=== PATIENT | male | born 1935 | race Caucasian/White ===

== ENCOUNTER 2017-01-12 15:40 | Inpatient (IN) | payer MEDICARE, OTHER ==
[2017-01-12 16:12] VITALS: BMI 27.1
--- NOTE | 2017-01-12 16:16 | PDOC ---
Rapid Medical Evaluation Time Seen by Provider: 01/12/17 16:09 Medical Evaluation: Allergies Allergy/AdvReac Type Severity Reaction Status Date / Time No Known Allergies Allergy Verified 06/20/14 03:48 01/12/17 16:09 I have performed a brief in person evaluation of this patient. The patient presents with chief complaint of : rash to groin red and oozing for one week. Pt states borderline DM. Pertinent PE findings: stable vitals, right inner thigh with red, tender indurated area with drainage, I have ordered the following: cbc, cmp, blood cultures, The patient will proceed to the ER for further evaluation. 01/12/17 16:16
[2017-01-12 16:50] LABS: BASOPHIL 0.6 % (0-2.0); EOSINOPHIL 4.5 % (0-4.5); MCH 29.6 pg (25.7-33.7); MCHC 33.2 g/dl (32.0-35.9); MEAN CELL VOLUME 89.2 fl (80-96); MEAN PLT VOLUME 7.4 fl (7.5-11.1); NEUTROPHILS 65.2 % (42.8-82.8); PLATELET COUNT 432 K/MM3 (134-434); RDW 15.2 % (11.9-15.9); WHITE BLOOD COUNT 7.4 K/mm3 (4.0-10.0)
[2017-01-12 17:35] LABS: ALBUMIN 3.3 g/dl (3.4-5.0); ANION GAP 10 (8-16); BILIRUBIN,TOTAL 0.3 mg/dL (0.2-1.0); CALCIUM 8.2 mg/dL (8.5-10.1); CO2 24 mmol/L (21-32); CREATININE 1.6 mg/dL (0.7-1.3); GLUCOSE,RANDOM 191 mg/dL (74-106); SGOT/AST 22 U/L (15-37); SGPT/ALT 48 U/L (12-78); TOT PROT 7.8 g/dl (6.4-8.2)
[2017-01-12 17:36] LABS: ALK PHOS 86 U/L (45-117)
--- NOTE | 2017-01-12 17:52 | PDOC ---
History of Present Illness - General History Source: Patient Exam Limitations: No Limitations - History of Present Illness Initial Comments: 01/12/17 19:08 Patient is an 81-year-old male with past medical history of HTN, HLD, diabetes, NC?,who presents to emergency department with pain to his inner thighs. Patient states that he noticed this yesterday and the redness has gotten worse. He has not seen a doctor yet for this issue. He states that there was a scratch on his thighs that got very red and irritated. Admits to pain in the legs. Denies fevers, chills, shortness of breath, chest pain, numbness and tingling in the legs, weakness in the legs, nausea, vomiting and diarrhea. <Mila Green - Last Filed: 01/12/17 19:08> <Kim Goodwin - Last Filed: 01/12/17 19:18> - General Chief Complaint: Wound Infection Stated Complaint: WOUND INFECTION Time Seen by Provider: 01/12/17 16:09 Past History - Travel Traveled outside of the country in the last 30 days: No Close contact w/someone who was outside of country & ill: No - Past Medical History Cardiac Disorders: Yes (CAD) COPD: No Diabetes: Yes HTN: Yes Hypercholesterolemia: Yes - Suicide/Smoking/Psychosocial Hx Smoking History: Former smoker Have you smoked in the past 12 months: No If you are a former smoker, when did you quit?: 25 yrs ago Information on smoking cessation initiated: No Hx Alcohol Use: No Substance Use Type: Alcohol <Mila Green - Last Filed: 01/12/17 19:08> <Kim Goodwin - Last Filed: 01/12/17 19:18> - Past Medical History Allergies/Adverse Reactions: Allergies Allergy/AdvReac Type Severity Reaction Status Date / Time No Known Allergies Allergy Verified 01/12/17 16:10 Home Medications: Ambulatory Orders Aspirin [Aspirin EC] 81 mg PO DAILY 06/20/14 Amlodipine Besylate [Norvasc -] 5 mg PO DAILY #14 tablet 06/22/14 Glipizide [Glipizide ER] 2.5 mg PO BID #60 tab.er.24 06/22/14 Lisinopril [Prinivil] 20 mg PO DAILY #14 tablet 06/22/14 Metformin HCl [Glucophage -] 500 mg PO BID@0700,1630 #60 tablet 06/22/14 Metoprolol Succinate [Toprol XL -] 50 mg PO DAILY #14 tab.sr.24h 06/22/14 Simvastatin [Zocor -] 40 mg PO DAILY #14 tablet 06/22/14 Spironolactone 25 mg PO DAILY #14 tablet 06/22/14 Torsemide 20 mg PO DAILY #14 tablet 06/22/14 Review of Systems - Review of Systems Able to Perform ROS?: Yes Comments:: 01/12/17 19:10 CONSTITUTIONAL: Absent: fever, chills, diaphoresis, generalized weakness, malaise, loss of appetite HEENT: Absent: rhinorrhea, nasal congestion, throat pain, throat swelling, difficulty swallowing, mouth swelling, ear pain, eye pain, visual Changes CARDIOVASCULAR: Absent: chest pain, loss of consciousness, palpitations, irregular heart rate, peripheral edema RESPIRATORY: Absent: cough, shortness of breath, dyspnea with exertion, orthopnea, wheezing, stridor, hemoptysis GASTROINTESTINAL: Absent: abdominal pain, abdominal distension, nausea, vomiting, diarrhea, constipation, melena, hematochezia GENITOURINARY: Absent: dysuria, frequency, urgency, hesitancy, hematuria, flank pain, genital pain MUSCULOSKELETAL: Absent: myalgia, arthralgia, joint swelling SKIN: Present: abscess with drainage, redness around the abscess. Absent: rash, itching, pallor HEMATOLOGIC/IMMUNOLOGIC: Absent: easy bleeding, easy bruising, lymphadenopathy, frequent infections ENDOCRINE: Absent: unexplained weight gain, unexplained weight loss, heat intolerance, cold intolerance NEUROLOGIC: Absent: headache, focal weakness or paresthesias, dizziness, unsteady gait, seizure, mental status changes, bladder or bowel incontinence PSYCHIATRIC: Absent: anxiety, depression, suicidal or homicidal ideation, hallucinations. Is the patient limited Kyrgyz proficient: No <Mila Green - Last Filed: 01/12/17 19:08> *Physical Exam - Vital Signs Last Vital Signs Temp Pulse Resp BP Pulse Ox 98.6 F 77 18 141/85 98 01/12/17 16:10 01/12/17 16:10 01/12/17 16:10 01/12/17 16:10 01/12/17 16:10 - Physical Exam Comments: 01/12/17 19:11 GENERAL: Well developed, well nourished. Awake and alert. No acute distress. HEENT: Normocephalic, atraumatic. PERRLA, EOMI. No conjunctival pallor. Sclera are non- icteric. Moist mucous membranes. Oropharynx is clear. NECK: Supple. Full ROM. No JVD. Carotid pulses 2+ and symmetric, without bruits. No thyromegaly. No lymphadenopathy. CARDIOVASCULAR: Regular rate and rhythm. No murmurs, rubs, or gallops. Distal pulses are 2+ and symmetric. PULMONARY: No evidence of respiratory distress. Lungs clear to auscultation bilaterally. No wheezing, rales or rhonchi. ABDOMINAL: Soft. Non-tender. Non-distended. No rebound or guarding. No organomegaly. Normoactive bowel sounds. MUSCULOSKELETAL Normal range of motion at all joints. No bony deformities or tenderness. No CVA tenderness. EXTREMITIES: No cyanosis. No clubbing. No edema. No calf tenderness. SKIN: R thigh with two abscesses. 1st absecess medial to scrotum is open and actively draining. Absess superior to the draining one is indurated and approximated 2x3cm. Cellulitis extends around both abscesses extending to the anterior thigh approximately [id number] round. Warm and dry. Normal capillary refill. No jaundice. NEUROLOGICAL: Alert, awake, appropriate. Cranial nerves 2-12 intact. No deficits to light touch and temperature in face, upper extremities and lower extremities. No motor deficits in the in face, upper extremities and lower extremities. Normoreflexic in the upper and lower extremities. Normal speech. Toes are down- going bilaterally. Gait is normal without ataxia. PSYCHIATRIC: Cooperative. Good eye contact. Appropriate mood and affect. <Mila Green - Last Filed: 01/12/17 19:08> - Vital Signs Last Vital Signs Temp Pulse Resp BP Pulse Ox 98.6 F 77 18 141/85 98 01/12/17 16:10 01/12/17 16:10 01/12/17 16:10 01/12/17 16:10 01/12/17 16:10 <Kim Goodwin - Last Filed: 01/12/17 19:18> ED Treatment Course - LABORATORY CBC & Chemistry Diagram: 01/12/17 16:00 01/12/17 16:00 - ADDITIONAL ORDERS Additional order review: Laboratory Results 01/12/17 16:00 Sodium 138 Potassium 4.6 Chloride 104 Carbon Dioxide 24 Anion Gap 10 BUN 25 H Creatinine 1.6 H Creat Clearance w eGFR 41.69 Random Glucose 191 H D Calcium 8.2 L Total Bilirubin 0.3 D AST 22 ALT 48 Alkaline Phosphatase 86 Total Protein 7.8 Albumin 3.3 L 01/12/17 16:00 RBC 4.48 MCV 89.2 MCHC 33.2 RDW 15.2 MPV 7.4 L D Neutrophils % 65.2 Lymphocytes % 20.2 D Monocytes % 9.5 Eosinophils % 4.5 D Basophils % 0.6 <Mila Green - Last Filed: 01/12/17 19:08> - LABORATORY CBC & Chemistry Diagram: 01/12/17 16:00 01/12/17 16:00 - ADDITIONAL ORDERS Additional order review: Laboratory Results 01/12/17 16:00 Sodium 138 Potassium 4.6 Chloride 104 Carbon Dioxide 24 Anion Gap 10 BUN 25 H Creatinine 1.6 H Creat Clearance w eGFR 41.69 Random Glucose 191 H D Calcium 8.2 L Total Bilirubin 0.3 D AST 22 ALT 48 Alkaline Phosphatase 86 Total Protein 7.8 Albumin 3.3 L 01/12/17 16:00 RBC 4.48 MCV 89.2 MCHC 33.2 RDW 15.2 MPV 7.4 L D Neutrophils % 65.2 Lymphocytes % 20.2 D Monocytes % 9.5 Eosinophils % 4.5 D Basophils % 0.6 - Medications Given in the ED: ED Medications Discontinued Medications Generic Name Dose Route Start Last Admin Trade Name Keyon PRN Reason Stop Dose Admin Piperacillin/Tazobactam/Dextrose 50 mls @ 100 mls/hr 01/12/17 18:26 01/12/17 18 :44 Zosyn 3.375gm Ivpb (Premix) IVPB 01/12/17 18:55 100 mls/hr ONCE ONE Administration Protocol <Kim Goodwin - Last Filed: 01/12/17 19:18> Medical Decision Making - Medical Decision Making 01/12/17 19:13 Patient is an 81-year-old male with past medical history of hypertension, hyperlipidemia, diabetes, NC who presents to the emergency department today with abscesses to the right thigh with cellulitis. As well as cellulitis on the left leg. Patient is a poor historian and unreliable to take medication. Given the area of cellulitis and abscess would like to admit for IV antibiotics. 1.CBC, CMP, PT/INR, blood cultures, UA, UC, wound culture. 2.IV clindamycin, Zosyn 3.reevaluate 01/12/17 WBC is within normal limits no left shift or leukocytosis. Will call hospitalist for admission given that this patient was only IV antibiotics. Sign out given to Gilma Miranda NP. In short IV evaluate the patient for cellulitis. He will need IV antibiotics. Awaiting disposition to admit to hospital. <Mila Green - Last Filed: 01/12/17 19:08> *DC/Admit/Observation/Transfer <Mila Green - Last Filed: 01/12/17 19:08> - Discharge Dispostion Admit: Yes <Kim Goodwin - Last Filed: 01/12/17 19:18> Diagnosis at time of Disposition: Renal insufficiency, Hyperglycemia, Cellulitis and abscess of right lower extremity
[2017-01-12] MEDS ORDERED: CLINDAMYCIN IVPB 300 MG in DEXTROSE 5%-WATER - 48 ML IVPB ONE (18:26)
[2017-01-12] MEDS ORDERED: PIPERACILLIN/TAZOB 3.375 GM 50 ML IVPB ONE ×2 (18:26→18:44)
--- NOTE | 2017-01-12 19:10 | PN ---
Teaching Attending Note Name of Resident: Mendy Storm ATTENDING PHYSICIAN STATEMENT I saw and evaluated the patient. I reviewed the resident's note and discussed the case with the resident. I agree with the resident's findings and plan as documented. SUBJECTIVE: 79 yo M with hx. of HTN, HLD, DM, and CAD who presents with right groin rash and oozing. States that this started one week ago. Notes that he scratched his thigh a week ago and that's when the redness started. Notes red drainage from groin area. No fevers, or chills, no chest pain or pressure. No n/v.d. Pt. OBJECTIVE: Physical: VS: Vital Signs Period Temp Pulse Resp BP Sys/Xiao Pulse Ox Last 24 Hr 98.6 F 77 18 141/85 98 GEN: NAD, resting in bed, AA0x3 HEENT: NCAT, PERRL, throat without erythema or exudates CARD: RRR S1, S2 RESP: CTAB ABD: BSx4, NTD to palpation EXT: - C/C/E CBCD WBC 7.4 K/mm3 (4.0-10.0) 01/12/17 16:00 RBC 4.48 M/mm3 (4.00-5.60) 01/12/17 16:00 Hgb 13.2 GM/dL (11.7-16.9) 01/12/17 16:00 Hct 39.9 % (35.4-49) 01/12/17 16:00 MCV 89.2 fl (80-96) 01/12/17 16:00 MCHC 33.2 g/dl (32.0-35.9) 01/12/17 16:00 RDW 15.2 % (11.9-15.9) 01/12/17 16:00 Plt Count 432 K/MM3 (134-434) D 01/12/17 16:00 MPV 7.4 fl (7.5-11.1) L D 01/12/17 16:00 CMP Sodium 138 mmol/L (136-145) 01/12/17 16:00 Potassium 4.6 mmol/L (3.5-5.1) 01/12/17 16:00 Chloride 104 mmol/L (98-107) 01/12/17 16:00 Carbon Dioxide 24 mmol/L (21-32) 01/12/17 16:00 Anion Gap 10 (8-16) 01/12/17 16:00 BUN 25 mg/dL (7-18) H 01/12/17 16:00 Creatinine 1.6 mg/dL (0.7-1.3) H 01/12/17 16:00 Creat Clearance w eGFR 41.69 (>60) 01/12/17 16:00 Random Glucose 191 mg/dL (74-106) H D 01/12/17 16:00 Calcium 8.2 mg/dL (8.5-10.1) L 01/12/17 16:00 Total Bilirubin 0.3 mg/dL (0.2-1.0) D 01/12/17 16:00 AST 22 U/L (15-37) 01/12/17 16:00 ALT 48 U/L (12-78) 01/12/17 16:00 Alkaline Phosphatase 86 U/L (45-117) 01/12/17 16:00 Total Protein 7.8 g/dl (6.4-8.2) 01/12/17 16:00 Albumin 3.3 g/dl (3.4-5.0) L 01/12/17 16:00 Home Medications Medication Instructions Recorded Aspirin [Aspirin EC] 81 mg PO DAILY 06/20/14 Amlodipine Besylate [Norvasc -] 5 mg PO DAILY #14 tablet 06/22/14 Glipizide [Glipizide ER] 2.5 mg PO BID #60 tab.er.24 06/22/14 Lisinopril [Prinivil] 20 mg PO DAILY #14 tablet 06/22/14 Metformin HCl [Glucophage -] 500 mg PO BID@0700,1630 #60 tablet 06/22/14 Metoprolol Succinate [Toprol XL -] 50 mg PO DAILY #14 tab.sr.24h 06/22/14 Simvastatin [Zocor -] 40 mg PO DAILY #14 tablet 06/22/14 Spironolactone 25 mg PO DAILY #14 tablet 06/22/14 Torsemide 20 mg PO DAILY #14 tablet 06/22/14 CT LE-Subcutanous edema without abcess formation ASSESSMENT AND PLAN: 81 M with hx of CAD, DM, HTN, and CAD who presents with right groin rash, being admitted for cellulitis 1.) Right groin Cellulitis - CT Groin as above - Sx. consult/ID - C/W Clindamycin 2.) CAD - C/W home meds 3.) Rosa on CKD - Avoid Nephrotoxins - monitor Cr on LEYDI - D/C Metformin - D/C Aldactone if CR increases 4.) DM - FS - RAISS 5.) HTN - C/W BB and Amlodipine 6.) Unable to Perform ADL - Social work consult for placement 7.) Dvt Ppx - Low Risk - Heparin [address] in Med-Sx
[2017-01-12] MEDS ORDERED: CLINDAMYCIN 600MG PREMIX IVPB 50 ML IVPB ONE (19:39)
--- NOTE | 2017-01-12 20:01 | HP ---
CHIEF COMPLAINT: "i have an infection on my thigh" PCP: Dr Spears HISTORY OF PRESENT ILLNESS: This is an 81 yo M with PMH of NIDDM, HTN, HLD, possible VT, who presents due to painful R thigh infection. he states that he scratched the area and it turned red and painful on fri and progressively increased in size and tenderness. 2 days ago the medial aspect of the lesion began draining sanguineou -purulent discharge, which made the are hurt less and decrease in size. He denies prior skin infection or frequent infection in general. he denies f/c, malaise, confusion or pain at rest, stating that the affected area is only tender if he moves his legs a certain way but does not hurt at rest. He answers all questions clearly and is aaox3. He states that despite apparent lack of systemic symptoms, he has not taken any of his home meds in several days because he did not feel well. he also requests social security assessor, given that he has lost both his food stamps and vns when his . He lives alone. Denies cp, sough, sob, and pain, n/v, diarrhea, constipation, h/a, numbness and tingling in the legs, weakness in the legs, dysuria. ER course was notable for: (1)labs (2)ct R thigh (3)nallely quick Recent Travel: denies PAST MEDICAL HISTORY: as above PAST SURGICAL HISTORY: none Social History: lives alone Smoking:denies Alcohol:denies Drugs: denies Family History: noncontributory Allergies No Known Allergies Allergy (Verified 01/12/17 16:10) HOME MEDICATIONS: Home Medications Medication Instructions Recorded Aspirin [Aspirin EC] 81 mg PO DAILY 06/20/14 Amlodipine Besylate [Norvasc -] 5 mg PO DAILY #14 tablet 06/22/14 Glipizide [Glipizide ER] 2.5 mg PO BID #60 tab.er.24 06/22/14 Lisinopril [Prinivil] 20 mg PO DAILY #14 tablet 06/22/14 Metformin HCl [Glucophage -] 500 mg PO BID@0700,1630 #60 tablet 06/22/14 Metoprolol Succinate [Toprol XL -] 50 mg PO DAILY #14 tab.sr.24h 06/22/14 Simvastatin [Zocor -] 40 mg PO DAILY #14 tablet 06/22/14 Spironolactone 25 mg PO DAILY #14 tablet 06/22/14 Torsemide 20 mg PO DAILY #14 tablet 06/22/14 REVIEW OF SYSTEMS CONSTITUTIONAL: Absent: fever, chills, diaphoresis, generalized weakness, malaise, loss of appetite, weight change HEENT: Absent: rhinorrhea, nasal congestion, throat pain CARDIOVASCULAR: Absent: chest pain, syncope, palpitations, irregular heart rate, lightheadedness , peripheral edema RESPIRATORY: Absent: cough, shortness of breath GASTROINTESTINAL: Absent: abdominal pain, abdominal distension, nausea, vomiting, diarrhea, constipation GENITOURINARY: Absent: dysuria MUSCULOSKELETAL: Absent: myalgia, arthralgia, joint swelling SKIN: Absent:itching, pallor HEMATOLOGIC/IMMUNOLOGIC: Absent: frequent infections ENDOCRINE: Absent: unexplained weight gain, unexplained weight loss, heat intolerance, cold intolerance NEUROLOGIC: Absent: headache, focal weakness or paresthesias PSYCHIATRIC: Absent: anxiety, depression PHYSICAL EXAMINATION Vital Signs - 24 hr 01/12/17 16:10 Temperature 98.6 F Pulse Rate 77 Respiratory 18 Rate Blood Pressure 141/85 O2 Sat by Pulse 98 Oximetry (%) GENERAL: Awake, alert, and fully oriented, in no acute distress. HEAD: Normal with no signs of trauma. EYES: Pupils equal, round and reactive to light, extraocular movements intact, sclera anicteric, conjunctiva clear. EARS, NOSE, THROAT: Moist mucous membranes. NECK: supple LUNGS: Breath sounds equal, clear to auscultation bilaterally. HEART: Regular rate and rhythm, normal S1 and S2 ABDOMEN: Soft, nontender, not distended, normoactive bowel sounds, no guarding MUSCULOSKELETAL: No CVA tenderness. UPPER EXTREMITIES: 2+ pulses, warm, well-perfused. No peripheral edema. LOWER EXTREMITIES: 1+ pulses, warm, well-perfused. No calf tenderness. No peripheral edema. R proximal medial thigh 10 cm hard indurated red area, warmer than surounding skin, draining sanguineou-purulent discharge at the most medial end, tender. NEUROLOGICAL: Cranial nerves II-XII grossly intact. Normal speech. PSYCHIATRIC: Cooperative. Good eye contact. Appropriate mood and affect. SKIN: Warm, dry Laboratory Results - last 24 hr 01/12/17 01/12/17 16:00 16:00 WBC 7.4 RBC 4.48 Hgb 13.2 Hct 39.9 MCV 89.2 MCH 29.6 MCHC 33.2 RDW 15.2 Plt Count 432 D MPV 7.4 L D Neutrophils % 65.2 Lymphocytes % 20.2 D Monocytes % 9.5 Eosinophils % 4.5 D Basophils % 0.6 Sodium 138 Potassium 4.6 Chloride 104 Carbon Dioxide 24 Anion Gap 10 BUN 25 H Creatinine 1.6 H Creat Clearance w eGFR 41.69 Random Glucose 191 H D Calcium 8.2 L Total Bilirubin 0.3 D AST 22 ALT 48 Alkaline Phosphatase 86 Total Protein 7.8 Albumin 3.3 L ASSESSMENT/PLAN: This is an 81 yo M with PMH of NIDDM, HTN, HLD, possible VT, who presents due to painful R proximal medial thigh infection. Abscess with surrounding cellulitis of R proximal medial thigh. -does not meet sirs criteria; afebrile, hemodynamically stable, no leukocytosis -requires warm compress followed by surgical I and D -surgery consult -f/u Ct scan to r/o deeper infection -continue clindamycin -f/u blood, wound cultures -patient unable to care for self; social work consult CKD -at baseline NIDDM -BGM, ISS HTN HLD -resume home meds Dispo: adm med nisa Visit type - Emergency Visit Emergency Visit: Yes Care time: The patient presented to the Emergency Department on the above date and was hospitalized for further evaluation of their emergent condition. - New Patient This patient is new to me today: Yes Date on this admission: 01/12/17 - Critical Care Critical Care patient: No
[2017-01-12] MEDS ORDERED: ACETAMINOPHEN 325 MG TABLET (FP) PO PRN (20:48)
--- NOTE | 2017-01-12 21:19 | HP ---
CHIEF COMPLAINT: inner thigh pain PCP: Regan HISTORY OF PRESENT ILLNESS: 81M w/ hx of HTN, HLD, DM, CAD, DE, CKD and elbow abscess presenting with 5 days of right inner thigh/ groin pain. Per pt, this began after scratching the area after believing he had gotten some type of bug bite. The area became inflamed, and it was relieved by alcohol and neosporin. He states that it is minimally painful, and he only came to the hospital because his daughter insisted. He states that he usually takes his medications, but he has not over the last few days because he thought they would make him worse given his infection. He denies fevers, chills, headache, chest pain, SOB, abdominal pain, n/v/d/c, dysuria, and numbness/tingling in LEs. ER course was notable for: (1) (2) (3) Recent Travel: none PAST MEDICAL HISTORY: HTN, HLD, DM, CAD, DE, CKD and elbow abscess PAST SURGICAL HISTORY: right knee replacement Social History: Smokin pack years, quit 15 years ago Alcohol: 5 drinks per day x 20 years, quit 20 years ago Drugs: denies Family History: Allergies No Known Allergies Allergy (Verified 01/12/17 16:10) HOME MEDICATIONS: Home Medications Medication Instructions Recorded Aspirin [Aspirin EC] 81 mg PO DAILY 06/20/14 Amlodipine Besylate [Norvasc -] 5 mg PO DAILY #14 tablet 06/22/14 Glipizide [Glipizide ER] 2.5 mg PO BID #60 tab.er.24 06/22/14 Lisinopril [Prinivil] 20 mg PO DAILY #14 tablet 06/22/14 Metformin HCl [Glucophage -] 500 mg PO BID@0700,1630 #60 tablet 06/22/14 Metoprolol Succinate [Toprol XL -] 50 mg PO DAILY #14 tab.sr.24h 06/22/14 Simvastatin [Zocor -] 40 mg PO DAILY #14 tablet 06/22/14 Spironolactone 25 mg PO DAILY #14 tablet 06/22/14 Torsemide 20 mg PO DAILY #14 tablet 06/22/14 REVIEW OF SYSTEMS CONSTITUTIONAL: Absent: fever, chills, diaphoresis, generalized weakness, malaise, loss of appetite, weight change HEENT: Absent: rhinorrhea, nasal congestion, throat pain, throat swelling, difficulty swallowing, mouth swelling, ear pain, eye pain, visual changes CARDIOVASCULAR: Absent: chest pain, syncope, palpitations, irregular heart rate, lightheadedness , peripheral edema RESPIRATORY: Absent: cough, shortness of breath, dyspnea with exertion, orthopnea, wheezing, stridor, hemoptysis GASTROINTESTINAL: Absent: abdominal pain, abdominal distension, nausea, vomiting, diarrhea, constipation, melena, hematochezia GENITOURINARY: Absent: dysuria, frequency, urgency, hesitancy, hematuria, flank pain, Present: groin pain MUSCULOSKELETAL: Absent: myalgia, arthralgia, joint swelling, back pain, neck pain SKIN: Absent: rash, itching, pallor HEMATOLOGIC/IMMUNOLOGIC: Absent: easy bleeding, easy bruising, lymphadenopathy, frequent infections ENDOCRINE: Absent: unexplained weight gain, unexplained weight loss, heat intolerance, cold intolerance NEUROLOGIC: Absent: headache, focal weakness or paresthesias, dizziness, unsteady gait, seizure, mental status changes, bladder or bowel incontinence PSYCHIATRIC: Absent: anxiety, depression, suicidal or homicidal ideation, hallucinations. PHYSICAL EXAMINATION GENERAL: elderly male, AAOx3, awake, alert, and fully oriented, in no acute distress. HEAD: Normal with no signs of trauma. EYES: Pupils equal, round and reactive to light, extraocular movements intact, sclera anicteric, conjunctiva clear. No lid lag. EARS, NOSE, THROAT: Ears normal, nares patent, oropharynx clear without exudates. Moist mucous membranes. NECK: Normal range of motion, supple without lymphadenopathy, JVD, or masses. LUNGS: Breath sounds equal, clear to auscultation bilaterally. No wheezes, and no crackles. No accessory muscle use. HEART: Regular rate and rhythm, normal S1 and S2 without murmur, rub or gallop. ABDOMEN: Soft, nontender, not distended, normoactive bowel sounds, no guarding, no rebound, no masses. No hepatomegaly or splenomegaly. Groin: 6cm x 4cm indurated draining abscess with large area of surrounding cellulitis on medial proximal RLE. area is warm to touch, erythematous, non tender to palpation. There is also a 2nd abscess that is 3cm x 2cm posterior to scrotum, draining pus, with minimal surrounding cellulitis. MUSCULOSKELETAL: Normal range of motion at all joints. No bony deformities or tenderness. No CVA tenderness. UPPER EXTREMITIES: 2+ pulses, warm, well-perfused. No cyanosis. No clubbing. No peripheral edema. LOWER EXTREMITIES: 2+ pulses, warm, well-perfused. No calf tenderness. No peripheral edema. NEUROLOGICAL: Cranial nerves II-XII intact. Normal speech. Normal gait. PSYCHIATRIC: Cooperative. Good eye contact. Appropriate mood and affect. ASSESSMENT/PLAN: 81M w/ hx of HTN, HLD, DM, CAD, DE, CKD and elbow abscess presenting with acute onset of 2 groin abscesses, admitted to med/surg for IV antibiotics. #Abscesses/cellulitis -no SIRS criteria -due to induration of RLE abscess, will apply warm compress to loosen up pus before I&D -clindamycin -APAP for fever or pain -f/u wound cx and blood cx -f/u CT of RLE to evaluate extent of infection #CKD -continue lisinopril -monitor creatinine #DM -hold metformin and glipizide -ISS and BGM ACHS #HTN -continue norvasc, lisinopril, toprol, spironolactone, and torsemide #HLD -continue simvastatin #CAD -continue ASA #FEN/ppx -no fluids -electrolytes wnl -diabetic diet -no GI ppx indicated -heparin 5000U TID #Dispo -admit to med/surg -social work eval for home services given pt's difficulty with ADLs -Lito Godinez MD PGY1 Visit type - Emergency Visit Emergency Visit: Yes ED Registration Date: 01/12/17 Care time: The patient presented to the Emergency Department on the above date and was hospitalized for further evaluation of their emergent condition. - New Patient This patient is new to me today: Yes Date on this admission: 01/13/17 - Critical Care Critical Care patient: No
[2017-01-12] MEDS ORDERED: ATORVASTATIN CA 20 MG TABLET (FP) PO SCH (22:00)
[2017-01-12] MEDS ORDERED: INSULIN SLIDING SCALE (NOVOLOG) 1 VIAL SQ SCH (22:00)
[2017-01-12] MEDS: HEPARIN NA (PORCINE) 5,000 UNITS/ML 1ML VIAL SQ SCH (23:33)
[2017-01-13] MEDS ORDERED: CLINDAMYCIN IVPB 300 MG in DEXTROSE 5%-WATER - 48 ML IVPB SCH (02:00)
[2017-01-13] MEDS ORDERED: CLINDAMYCIN 600MG PREMIX IVPB 50 ML IVPB SCH (02:00)
[2017-01-13] MEDS ORDERED: PIPERACILLIN/TAZOB 3.375 GM/50 ML PRE-DOCKED IVPB ONE (03:00)
[2017-01-13] MEDS: HEPARIN NA (PORCINE) 5,000 UNITS/ML 1ML VIAL SQ SCH ×2 (05:36→21:12)
[2017-01-13 08:35] LABS: MCH 29.7 pg (25.7-33.7); MCHC 33.6 g/dl (32.0-35.9); MEAN CELL VOLUME 88.5 fl (80-96); MEAN PLT VOLUME 7.3 fl (7.5-11.1); PLATELET COUNT 423 K/MM3 (134-434); RDW 15.2 % (11.9-15.9); WHITE BLOOD COUNT 6.3 K/mm3 (4.0-10.0)
--- NOTE | 2017-01-13 09:13 | HOSP ---
Subjective - Review of Symptoms Subjective: Patient seen and examined. He denies fever, chills. He has tenderness two b/l groin wound sites. He denies sob, chest pain, n/v. Physical Examination Vital Signs: Vital Signs Temperature 98.2 F 01/13/17 06:09 Pulse Rate 66 01/13/17 06:09 Respiratory Rate 20 01/13/17 06:09 Blood Pressure 128/61 01/13/17 06:09 O2 Sat by Pulse Oximetry (%) 96 01/13/17 05:00 Eyes: Yes: WNL Neck: Yes: Supple Cardiovascular: Yes: Regular Rate and Rhythm, S1, S2 Respiratory: Yes: Regular, CTA Bilaterally Gastrointestinal: Yes: Normal Bowel Sounds, Soft Extremities: Yes: WNL Edema: No Wound/Incision: Yes: Draining, Reddened, Other (Bilateral groin drainaing abcescess R groin indurated, erythema, tender, 2cm x 3cm, L groin 3cm x4cm 1 cm deep, pustulant drainage, with slough) Neurological: Yes: Alert, Oriented, Cran Nerves II-XII Intact Psychiatric: Yes: Alert, Oriented Labs: CBC, BMP 01/13/17 07:30 Hospitalist Encounter Assessment: Assessment: 81 male with pmhx of CAD, DM II, HTN, and CAD admitted with bilateral groin draining abscess with cellulitis. Plan: 1. Bilateral groin abscess with cellulitis - Resent cultures - Stop Clinda - Start vanco, ceftriaxone, and flagyl - Follow vanco levels w/ CKD - Surgery to see for I&D, keep NPO 2. CAD, hx of systolic CHF - Not in acute exacerbation - Metoprolol xl 50mg - ASA daily - Spironolactone 25mg daily - Toresemide 20mg daily 3. HTN - Norvasc 5mg daily - Lisinopril 20mg daily 4. NASRIN on CKD - Cr around baseline - Awaiting AM labs, if cr rising will stop LEYDI, [place] - Hold metformin - Obtain UA 5. HLD - Lipitor 6. DM II - Obtain hgb a1c - ISS, BGM ACHS 7. DVT ppx - Heparin sq starting tomorrow
--- NOTE | 2017-01-13 09:31 | PN ---
Progress Note (short form) - Note Progress Note: ID consult dictated imp/reccd 81 year old diabetic man admitted with one week of increasing discomfort in both groin areas no fevers or chills had a prior left elbow infection-that resolved recently bilateral abscesses/soft tissue infection surgical consult vancomycin and rocephin/flagyl f/u cultures Problem List - Problems (1) Cellulitis and abscess of right leg Code(s): L03.115 - CELLULITIS OF RIGHT LOWER LIMB L02.415 - CUTANEOUS ABSCESS OF RIGHT LOWER LIMB (2) Cellulitis and abscess of left leg Code(s): L03.116 - CELLULITIS OF LEFT LOWER LIMB L02.416 - CUTANEOUS ABSCESS OF LEFT LOWER LIMB
[2017-01-13 09:55] LABS: ALBUMIN 3.2 g/dl (3.4-5.0); ALK PHOS 75 U/L (45-117); ANION GAP 10 (8-16); BILIRUBIN,TOTAL 0.7 mg/dL (0.2-1.0); CALCIUM 8.4 mg/dL (8.5-10.1); CO2 26 mmol/L (21-32); CREATININE 1.4 mg/dL (0.7-1.3); GLUCOSE,RANDOM 121 mg/dL (74-106); MAGNESIUM 2.4 mg/dL (1.8-2.4); PHOSPHOROUS 3.3 mg/dL (2.5-4.9); SGOT/AST 19 U/L (15-37); SGPT/ALT 42 U/L (12-78); TOT PROT 7.5 g/dl (6.4-8.2)
[2017-01-13] MEDS ORDERED: PT OWN MED DRAWER 7, Y5N ONE (09:56)
[2017-01-13] MEDS ORDERED: VANCOMYCIN 1,250 MG in DEXTROSE 5%-WATER - 250 ML IVPB SCH (10:00)
[2017-01-13] MEDS ORDERED: ASPIRIN COATED 81 MG TABLET.EC PO SCH ×2 (10:00)
[2017-01-13] MEDS ORDERED: amLODIPine BESYLATE 5 MG TABLET (FP) PO SCH ×2 (10:00)
[2017-01-13] MEDS ORDERED: PIPERACILLIN/TAZOB 3.375 GM/50 ML PRE-DOCKED IVPB SCH (10:00)
[2017-01-13] MEDS ORDERED: LISINOPRIL 20 MG TABLET (FP) PO SCH ×2 (10:00)
[2017-01-13] MEDS ORDERED: METOPROLOL SUCCINATE 50 MG TAB.SR.24H (FP) PO SCH ×2 (10:00)
[2017-01-13] MEDS ORDERED: CEFTRIAXONE 2 GM in DEXTROSE 5%-WATER - 100 ML IVPB SCH (10:00)
[2017-01-13] MEDS ORDERED: TORSEMIDE 20 MG TABLET (FP) PO SCH ×2 (10:00)
[2017-01-13] MEDS ORDERED: AMPICILLIN NA/SULBACTAM NA 1.5 GM in SODIUM CHLORIDE 100 ML IVPB SCH (10:00)
[2017-01-13] MEDS ORDERED: cefTRIAXone 2 GM/100 ML BAG (PRE-DOCKED) IVPB SCH (10:00)
[2017-01-13] MEDS ORDERED: METRONIDAZOLE 500 MG PREMIXED 100 ML IVPB SCH (10:00)
[2017-01-13] MEDS ORDERED: SPIRONOLACTONE 25 MG TABLET (FP) PO SCH ×2 (10:00)
[2017-01-13] MEDS ORDERED: INSULIN SLIDING SCALE (NOVOLOG) 1 VIAL SQ SCH (11:00)
--- NOTE | 2017-01-13 11:06 | CONS ---
DATE OF CONSULTATION: DATE OF DICTATION: 01/13/2017 REQUESTING PHYSICIAN: The hospitalist service. HISTORY: This is a very pleasant 81-year-old man recently , living alone since the summer. He about a week ago developed discomfort in both his inner thighs. It felt very itchy. He started scratching. The pain had gotten much worse. It became first very red and irritated. He now has open wounds that are draining, and he presented to the emergency room. He denies any fevers and chills. There is no nausea, vomiting. He has no chest pain, abdominal pain, diarrhea, or dysuria. He had no fever in the emergency room. His white blood cell count was normal. He had a CAT scan of the mid pelvis through the mid thigh that was notable for skin thickening and subcutaneous edema. I am asked to see him for antibiotic recommendations. PAST MEDICAL HISTORY: Notable for history of coronary artery disease, diabetes, hypertension, hypercholesterolemia, chronic kidney disease with a creatinine of 1.5. He is status post right total knee replacement in the past. ALLERGIES: He has no known drug allergies. MEDICATIONS: Medications at home include torsemide, spironolactone, Zocor, metoprolol, metformin, lisinopril, glipizide, aspirin, and Norvasc. FAMILY HISTORY: Noncontributory. SOCIAL HISTORY: He is recently . His in September. He is living alone. He has 5 children. 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 He lives here in [place]. REVIEW OF SYSTEMS: As per HPI. He does give a history as well of having had an infection of his left elbow that was drained about a year ago, and he does not know anything else except for the fact that it healed. PHYSICAL EXAMINATION: General: He is awake and alert. Vital Signs: Temperature is 98.2. Pulse is 66. Blood pressure 128/61. Respiratory rate is 20. Weight is 203 pounds. He is saturating 96% on room air. HEENT: He is normocephalic. His eyes are anicteric. He has no thrush. Lungs: Clear to auscultation. Heart: Regular rate and rhythm. Abdomen: Soft, nontender. Extremities: His left elbow: The olecranon bursa is a little bit tough and thickened compared to the right. There is no erythema, induration, or fluctuance. Both his inner thighs at the groin area he has the right side a large area of induration and erythema, and on the left a smaller one, which are consistent with possible abscess, soft tissue infections. LABORATORY: Notable for a white count of 6.3, hemoglobin 13.1, platelets of 423. BUN and creatinine are 25 and 1.6. Cultures are pending. CAT scan finding is as previously stated. SUMMARY: This is an 81-year-old man admitted with bilateral soft tissue infection, possible abscesses of his inner thigh, groin area. Would recommend surgical consult. Will treat him with vancomycin, Rocephin, and Flagyl to cover both gram-negative and MRSA. Follow up cultures. Case was discussed with the hospitalists. SP TORRES M.D. [id number]
[2017-01-13 12:30] LABS: METAMYELOCYTE 1 % (0-2); MYELOCYTE 1 % (0-2); TOTAL CELLS COUNTED 100
--- NOTE | 2017-01-13 12:58 | CONSULT ---
- Consultation REQUESTING PROVIDER: Neftaly MINE SAFETY ENGINEER CONSULT REQUEST: We have been asked to surgically evaluate this patient for ( specify). PCP:Nelda Higginbotham HISTORY OF PRESENT ILLNESS: SHARI who is an 81 y/o male w/ # days of pain and swelling in his right thigh and perineum; he was scratching the area and then over # days the above c/o's evolved; he came to the ER for evaluation. PMHx: NIDDM; hypertension; hyperlipidemia PSHx: right TKR Home Medications Medication Instructions Recorded Aspirin [Aspirin EC] 81 mg PO DAILY 06/20/14 Amlodipine Besylate [Norvasc -] 5 mg PO DAILY #14 tablet 06/22/14 Glipizide [Glipizide ER] 2.5 mg PO BID #60 tab.er.24 06/22/14 Lisinopril [Prinivil] 20 mg PO DAILY #14 tablet 06/22/14 Metformin HCl [Glucophage -] 500 mg PO BID@0700,1630 #60 tablet 06/22/14 Metoprolol Succinate [Toprol XL -] 50 mg PO DAILY #14 tab.sr.24h 06/22/14 Simvastatin [Zocor -] 40 mg PO DAILY #14 tablet 06/22/14 Spironolactone 25 mg PO DAILY #14 tablet 06/22/14 Torsemide 20 mg PO DAILY #14 tablet 06/22/14 Allergies Allergy/AdvReac Type Severity Reaction Status Date / Time No Known Allergies Allergy Verified 01/12/17 16:10 PHYSICAL EXAM: GENERAL: Awake, alert, and fully oriented, in no acute distress. HEAD: Normal with no signs of trauma. EYES: sclera anicteric, conjunctiva clear. NECK: Normal ROM, supple without lymphadenopathy, JVD, or masses. ABDOMEN: Soft, nontender, not distended, normoactive bowel sounds, no guarding, no rebound, no masses. No organomegaly. MUSCULOSKELETAL: Normal ROM at all joints. No bony deformities or tenderness. No CVA tenderness. UPPER EXTREMITIES: 2+ pulses, warm, well-perfused. No cyanosis. Cap refill <2 seconds. No peripheral edema. LOWER EXTREMITIES: 2+ pulses, warm, well-perfused. No calf tenderness. No peripheral edema. NEUROLOGICAL: Normal speech, gait not observed. PSYCH: Cooperative. Good eye contact. Appropriate mood and affect. SKIN: ABSSSI medial right thigh; partially open and draining; perineal ABSSSI open and partially draining w/ some devitalized soft tissue. Vital Signs Temperature 99 F 01/13/17 10:00 Pulse Rate 88 01/13/17 10:00 Respiratory Rate 20 01/13/17 10:00 Blood Pressure 136/68 01/13/17 10:00 O2 Sat by Pulse Oximetry (%) 96 01/13/17 05:00 Lab Results WBC 6.3 K/mm3 (4.0-10.0) 01/13/17 07:30 RBC 4.41 M/mm3 (4.00-5.60) 01/13/17 07:30 Hgb 13.1 GM/dL (11.7-16.9) 01/13/17 07:30 Hct 39.1 % (35.4-49) 01/13/17 07:30 MCV 88.5 fl (80-96) 01/13/17 07:30 MCHC 33.6 g/dl (32.0-35.9) 01/13/17 07:30 RDW 15.2 % (11.9-15.9) 01/13/17 07:30 Plt Count 423 K/MM3 (134-434) 01/13/17 07:30 Sodium 139 mmol/L (136-145) 01/13/17 07:30 Potassium 5.3 mmol/L (3.5-5.1) H 01/13/17 07:30 Chloride 103 mmol/L (98-107) 01/13/17 07:30 Carbon Dioxide 26 mmol/L (21-32) 01/13/17 07:30 Anion Gap 10 (8-16) 01/13/17 07:30 BUN 20 mg/dL (7-18) H 01/13/17 07:30 Creatinine 1.4 mg/dL (0.7-1.3) H 01/13/17 07:30 Random Glucose 121 mg/dL (74-106) H D 01/13/17 07:30 Calcium 8.4 mg/dL (8.5-10.1) L 01/13/17 07:30 IMP: ABSSSI right medial thigh and perineum. PLANOR for I and D and debridement; r/b/t/a's d/w the patient and informed consent obtained. Flavio N. Resendez MD FACS Visit type - Case Type Case Type: ED Admission - Emergency Emergency Visit: Yes ED Registration Date: 01/13/17 Care time: The patient presented to the Emergency Department on the above date and was hospitalized for further evaluation of their emergent condition. - New patient This patient is new to me today: Yes Date on this admission: 01/13/17 - Critical Care Critical Care patient: No
[2017-01-13] MEDS ORDERED: LIDOCAINE HCL 2% (20ML MULTI-DOSE VIAL) NR ONE (12:59)
[2017-01-13] MEDS ORDERED: LIDOCAINE 1%/EPI 1:100000 (20 ML MULTI DOSE VIAL) ONE (12:59)
[2017-01-13] MEDS ORDERED: LIDOCAINE HCL 1%, 10 MG/ML (20ML VIAL) ONE (12:59)
[2017-01-13] MEDS ORDERED: LIDOCAINE HCL 1%, 10 MG/ML (20ML VIAL) INF ONE (13:36)
[2017-01-13] MEDS ORDERED: BUPIVACAINE HCL/PF 0.5% (5MG/ML) 10 ML VIAL IJ ONE (13:37)
--- NOTE | 2017-01-13 13:54 | OP ---
Operative Note - Note: Operative Date: 01/13/17 Pre-Operative Diagnosis: right medial thigh abscess/left perineal abscess Operation: I and D right medial thigh abscess and left perineal abscess Findings: as above Post-Operative Diagnosis: Same as Pre-op Surgeon: Flavio Resendez Anesthesia: Local Estimated Blood Loss (mls): 15
[2017-01-13] MEDS ORDERED: HEPARIN NA (PORCINE) 5,000 UNITS/ML 1ML VIAL SQ SCH (14:00)
[2017-01-13] MEDS: INSULIN SLIDING SCALE (NOVOLOG) 1 VIAL SQ SCH ×2 (17:16→21:12)
[2017-01-13] MEDS: METRONIDAZOLE 500 MG PREMIXED 100 ML IVPB SCH (17:20)
[2017-01-13] MEDS: oxyCODONE HCL 5 MG TABLET PO PRN (21:11)
[2017-01-13] MEDS: ACETAMINOPHEN 325 MG TABLET (FP) PO PRN (21:11)
[2017-01-13] MEDS: ATORVASTATIN CA 20 MG TABLET (FP) PO SCH (21:11)
--- NOTE | 2017-01-13 21:56 | EKG ---
Test Reason : Blood Pressure : / mmHG Vent. Rate : 065 BPM Atrial Rate : 065 BPM P-R Int : 230 ms QRS Dur : 088 ms QT Int : 440 ms P-R-T Axes : 056 054 081 degrees QTc Int : 457 ms SINUS RHYTHM WITH 1ST DEGREE A-V BLOCK WITH PREMATURE SUPRAVENTRICULAR COMPLEXES OTHERWISE NORMAL ECG WHEN COMPARED WITH ECG OF 20-JUN-2014 21:29, NE INTERVAL HAS DECREASED T WAVE ABNORMALITIES ARE NO LONGER PRESENT Confirmed by ZULEIKA VALADEZ MD ([id number]) on 01/13/2017 9:55:50 PM Referred By: Confirmed By:ZULEIKA VALADEZ MD
[2017-01-13] MEDS ORDERED: ATORVASTATIN CA 20 MG TABLET (FP) PO SCH (22:00)
[2017-01-14] MEDS: METRONIDAZOLE 500 MG PREMIXED 100 ML IVPB SCH ×3 (02:38→17:02)
[2017-01-14 09:07] LABS: BASOPHIL 0.5 % (0-2.0); EOSINOPHIL 3.2 % (0-4.5); MCH 29.2 pg (25.7-33.7); MCHC 32.8 g/dl (32.0-35.9); MEAN PLT VOLUME 6.8 fl (7.5-11.1); NEUTROPHILS 77.1 % (42.8-82.8); PLATELET COUNT 422 K/MM3 (134-434); RDW 14.9 % (11.9-15.9); WHITE BLOOD COUNT 9.3 K/mm3 (4.0-10.0)
--- NOTE | 2017-01-14 09:08 | PN ---
Progress Note (short form) - Note Progress Note: dressing changed today, pt states pain has improved overall. Vital Signs Period Temp Pulse Resp BP Sys/Xiao Pulse Ox Last 24 Hr 97 F-99 F 66-88 16-20 111-189/60-83 98-100 GEn: appears comfortable Right thigh: packing removed and wound irrigated with NS, no purulent drainage. Surrounding erythema. Repack with wet kerlix. Left perineum: packing removed, no purulent drainage. Repacked wound with wet kerlix. A/P: 81 yo male s/p I and D right medial thigh abscess and left perineal abscess dressing changed today VNS ordered for sitz baths and dressing changes IV abx, f/u wound culture from OR D/w Dr. Resendez
[2017-01-14] MEDS ORDERED: CEFTRIAXONE 2 GM in DEXTROSE 5%-WATER - 100 ML IVPB SCH (10:00)
[2017-01-14] MEDS ORDERED: SPIRONOLACTONE 25 MG TABLET (FP) PO SCH (10:00)
[2017-01-14] MEDS ORDERED: METOPROLOL SUCCINATE 50 MG TAB.SR.24H (FP) PO SCH (10:00)
[2017-01-14 10:09] LABS: ANION GAP 7 (8-16); BILIRUBIN,TOTAL 0.4 mg/dL (0.2-1.0); CALCIUM 8.2 mg/dL (8.5-10.1); CO2 26 mmol/L (21-32); CREATININE 1.5 mg/dL (0.7-1.3); GLUCOSE,RANDOM 187 mg/dL (74-106); SGOT/AST 13 U/L (15-37); SGPT/ALT 36 U/L (12-78); TOT PROT 7.1 g/dl (6.4-8.2)
[2017-01-14 10:10] LABS: ALK PHOS 75 U/L (45-117)
[2017-01-14] MEDS: amLODIPine BESYLATE 5 MG TABLET (FP) PO SCH (10:23)
[2017-01-14] MEDS: TORSEMIDE 20 MG TABLET (FP) PO SCH (10:23)
[2017-01-14] MEDS: ASPIRIN COATED 81 MG TABLET.EC PO SCH (10:23)
[2017-01-14] MEDS: ACETAMINOPHEN 325 MG TABLET (FP) PO PRN (10:34)
[2017-01-14] MEDS: oxyCODONE HCL 5 MG TABLET PO PRN (10:34)
[2017-01-14] MEDS: CEFTRIAXONE 2 GM in DEXTROSE 5%-WATER - 100 ML IVPB SCH (11:09)
--- NOTE | 2017-01-14 11:42 | PN ---
Progress Note (short form) - Note Progress Note: s/p operative drainage of abscesses yesterday wounds packed by surgery this am Vital Signs Period Temp Pulse Resp BP Sys/Xiao Pulse Ox Last 24 Hr 97 F-98.2 F 66-86 16-20 111-189/60-83 98-100 cor-rrr lungs clear abd soft,nt +erythema right thigh wounds packed CBC, BMP 01/14/17 08:35 01/14/17 08:35 Microbiology 01/12/17 16:00 Blood - Peripheral Venous Blood Culture - Preliminary NO GROWTH OBTAINED AFTER 24 HOURS, INCUBATION TO CONTINUE FOR 4 DAYS. 01/12/17 16:15 Blood - Peripheral Venous Blood Culture - Preliminary NO GROWTH OBTAINED AFTER 24 HOURS, INCUBATION TO CONTINUE FOR 4 DAYS. 01/12/17 17:30 Abscess Gram Stain - Final imp/reccd 81 year old diabetic man admitted with one week of increasing discomfort in both groin areas bilateral abscesses/soft tissue infection s/p incision and drainage continue vanco/rocephin/flagyl f/u cultures vancomycin level before dose tomorrow d/w hospitalist service Problem List - Problems (1) Cellulitis and abscess of right leg Code(s): L03.115 - CELLULITIS OF RIGHT LOWER LIMB; L02.415 - CUTANEOUS ABSCESS OF RIGHT LOWER LIMB (2) Cellulitis and abscess of left leg Code(s): L03.116 - CELLULITIS OF LEFT LOWER LIMB; L02.416 - CUTANEOUS ABSCESS OF LEFT LOWER LIMB
[2017-01-14] MEDS: INSULIN SLIDING SCALE (NOVOLOG) 1 VIAL SQ SCH ×3 (11:51→21:44)
[2017-01-14] MEDS: VANCOMYCIN 1,250 MG in DEXTROSE 5%-WATER - 250 ML IVPB SCH (12:36)
--- NOTE | 2017-01-14 13:52 | HP ---
OBSERVATION TO INPATIENT H&P HISTORY OF PRESENT ILLNESS: Mr Richter is an 81yo M with a PMHx of CAD, DM2, CKD who presented with 5 days of pain and abscess in R medial thigh and pustule in L medial thigh. As per patient, he thought he had a "bug bite" and scratched the area, it subsequently became inflammed, but he sustained no fevers, chills. The area grew into fluctulant abscesses. On admission he was afebrile, not tachycardic or tachypneic, without a white count. On examination, the patient had a large R thigh abscess 6x4cm, indurated , draining, with surrounding erythema and warmth. There was a second pustular abscess on the L thigh about 2x3cm, draining pus without surrounding erythema. The patient was started on Clindamycin initially, but then switched to Vancomycin, Ceftriaxone, and Flagyl under ID recommendations. He was seen by Dr Resendez (surgery) who drained both sites, and packed the larger R medial thigh abscess. He continues to have no pain, no fevers, no chills, and vital signs remain stable. Wound cx are growing G+ cocci, presumptive MRSA (PBPA+) Recent Travel: none PAST MEDICAL HISTORY: HTN, HLD, DM, CAD, SD, CKD and elbow abscess PAST SURGICAL HISTORY: Right knee replacement Social History: Smokin pack years, quit 15 years ago Alcohol: 5 drinks per day x 20 years, quit 20 years ago Drugs: denies Allergies: No Known Allergies Allergy (Verified 01/12/17 16:10) HOME MEDICATIONS: Home Medications Medication Instructions Recorded Aspirin [Aspirin EC] 81 mg PO DAILY 06/20/14 Amlodipine Besylate [Norvasc -] 5 mg PO DAILY #14 tablet 06/22/14 Glipizide [Glipizide ER] 2.5 mg PO BID #60 tab.er.24 06/22/14 Lisinopril [Prinivil] 20 mg PO DAILY #14 tablet 06/22/14 Metformin HCl [Glucophage -] 500 mg PO BID@0700,1630 #60 tablet 06/22/14 Metoprolol Succinate [Toprol XL -] 50 mg PO DAILY #14 tab.sr.24h 06/22/14 Simvastatin [Zocor -] 40 mg PO DAILY #14 tablet 06/22/14 Spironolactone 25 mg PO DAILY #14 tablet 06/22/14 Torsemide 20 mg PO DAILY #14 tablet 06/22/14 REVIEW OF SYSTEMS CONSTITUTIONAL: Absent: fever, chills, diaphoresis, generalized weakness, malaise, loss of appetite, weight change HEENT: Absent: rhinorrhea, nasal congestion, throat pain, throat swelling, difficulty swallowing, mouth swelling, ear pain, eye pain, visual changes CARDIOVASCULAR: Absent: chest pain, syncope, palpitations, irregular heart rate, lightheadedness , peripheral edema RESPIRATORY: Absent: cough, shortness of breath, dyspnea with exertion, orthopnea, wheezing, stridor, hemoptysis GASTROINTESTINAL: Absent: abdominal pain, abdominal distension, nausea, vomiting, diarrhea, constipation, melena, hematochezia GENITOURINARY: Absent: dysuria, frequency, urgency, hesitancy, hematuria, flank pain, genital pain MUSCULOSKELETAL: Absent: myalgia, arthralgia, joint swelling, back pain, neck pain SKIN: Absent: rash, itching, pallor HEMATOLOGIC/IMMUNOLOGIC: Absent: easy bleeding, easy bruising, lymphadenopathy, frequent infections ENDOCRINE: Absent: unexplained weight gain, unexplained weight loss, heat intolerance, cold intolerance NEUROLOGIC: Absent: headache, focal weakness or paresthesias, dizziness, unsteady gait, seizure, mental status changes, bladder or bowel incontinence PSYCHIATRIC: Absent: anxiety, depression, suicidal or homicidal ideation, hallucinations. PHYSICAL EXAMINATION Vital Signs Temperature 97.9 F 01/14/17 10:00 Pulse Rate 75 01/14/17 10:00 Respiratory Rate 20 01/14/17 10:00 Blood Pressure 127/70 01/14/17 10:00 O2 Sat by Pulse Oximetry (%) 98 01/14/17 00:24 GEN: AAOx3, NAD, Lying comfortably, not in pain HEENT: PERRLA, EOMi CV: S1, S2, RRR, No murmur LUNG: CTABL ABD: Soft, NT, ND, normoactive BS MSK: No edema, no erythema GROIN: R medial thigh area of induration with incision, packed with iodoform, surrounding warmth, some erythema, mostly dark thickening surrounding area L medial thigh area of incision, no packing, minimal underlying fluctulance, no surrounding erythema NEURO: No sensation or MSK deficits Laboratory Last Values WBC 9.3 K/mm3 (4.0-10.0) D 01/14/17 08:35 RBC 4.35 M/mm3 (4.00-5.60) 01/14/17 08:35 Hgb 12.7 GM/dL (11.7-16.9) 01/14/17 08:35 Hct 38.7 % (35.4-49) 01/14/17 08:35 MCV 89.0 fl (80-96) 01/14/17 08:35 MCH 29.2 pg (25.7-33.7) 01/14/17 08:35 MCHC 32.8 g/dl (32.0-35.9) 01/14/17 08:35 RDW 14.9 % (11.9-15.9) 01/14/17 08:35 Plt Count 422 K/MM3 (134-434) 01/14/17 08:35 MPV 6.8 fl (7.5-11.1) L 01/14/17 08:35 Total Counted 100 01/13/17 07:30 Neutrophils % 77.1 % (42.8-82.8) 01/14/17 08:35 Neutrophils % (Manual) 56 % (42.8-82.8) 01/13/17 07:30 Band Neuts % (Manual) 6 % (0-10) 01/13/17 07:30 Lymphocytes % 10.1 % (8-40) D 01/14/17 08:35 Lymphocytes % (Manual) 25 % (8-40) 01/13/17 07:30 Monocytes % 9.1 % (3.8-10.2) 01/14/17 08:35 Monocytes % (Manual) 9 % (3.8-10.2) 01/13/17 07:30 Eosinophils % 3.2 % (0-4.5) 01/14/17 08:35 Eosinophils % (Manual) 2 % (0-4.5) 01/13/17 07:30 Basophils % 0.5 % (0-2.0) 01/14/17 08:35 Myelocytes % (Man) 1 % (0-2) 01/13/17 07:30 Sodium 138 mmol/L (136-145) 01/14/17 08:35 Potassium 5.4 mmol/L (3.5-5.1) H 01/14/17 08:35 Chloride 105 mmol/L (98-107) 01/14/17 08:35 Carbon Dioxide 26 mmol/L (21-32) 01/14/17 08:35 Anion Gap 7 (8-16) L 01/14/17 08:35 BUN 19 mg/dL (7-18) H 01/14/17 08:35 Creatinine 1.5 mg/dL (0.7-1.3) H 01/14/17 08:35 Creat Clearance w eGFR 44.92 (>60) 01/14/17 08:35 POC Glucometer 115 UNITS (80-120) 01/14/17 11:45 Random Glucose 187 mg/dL (74-106) H D 01/14/17 08:35 Calcium 8.2 mg/dL (8.5-10.1) L 01/14/17 08:35 Phosphorus 3.3 mg/dL (2.5-4.9) 01/13/17 07:30 Magnesium 2.4 mg/dL (1.8-2.4) 01/13/17 07:30 Total Bilirubin 0.4 mg/dL (0.2-1.0) D 01/14/17 08:35 AST 13 U/L (15-37) L D 01/14/17 08:35 ALT 36 U/L (12-78) 01/14/17 08:35 Alkaline Phosphatase 75 U/L (45-117) 01/14/17 08:35 Total Protein 7.1 g/dl (6.4-8.2) 01/14/17 08:35 Albumin 3.0 g/dl (3.4-5.0) L 01/14/17 08:35 Active Medications Generic Name Dose Route Start Last Admin Trade Name Freq PRN Reason Stop Dose Admin Acetaminophen 650 mg 01/13/17 13:54 01/14/17 10:34 Tylenol - PO 650 mg Q6H PRN Administration PAIN Amlodipine Besylate 5 mg 01/14/17 10:00 01/14/17 10:23 Norvasc - PO 5 mg DAILY FLORENTINO Administration Aspirin 81 mg 01/14/17 10:00 01/14/17 10:23 Ecotrin - PO 81 mg DAILY FLORENTINO Administration Atorvastatin Calcium 20 mg 01/13/17 22:00 01/13/17 21:11 Lipitor - PO 20 mg HS FLORENTINO Administration Heparin Sodium (Porcine) 5,000 unit 01/13/17 22:00 01/13/17 21:12 Heparin - SQ 5,000 unit TID FLORENTINO Administration Metronidazole 100 mls @ 100 mls/hr 01/13/17 18:00 01/14/17 10:24 Flagyl 500mg Premixed Ivpb - IVPB 100 mls/hr Q8H-IV FLORENTINO Administration Vancomycin HCl 1,250 mg/ 250 mls @ 166.667 mls/hr 01/14/17 12:00 01/14/17 12: 36 Dextrose IVPB 166.667 mls/hr DAILY@1200 FLORENTINO Administration Protocol Ceftriaxone Sodium 2 gm/ 100 mls @ 200 mls/hr 01/14/17 10:00 01/14/17 11:09 Dextrose IVPB 200 mls/hr DAILY FLORENTINO Administration Insulin Aspart 1 vial 01/13/17 16:30 01/14/17 11:51 Novolog Vial Sliding Scale - SQ Not Given ACHS FLORENTINO Protocol Metoprolol Succinate 50 mg 01/14/17 10:00 01/14/17 10:34 Toprol Xl - PO 50 mg DAILY FLORENTINO Administration Oxycodone HCl 10 mg 01/13/17 13:54 01/14/17 10:34 Roxicodone - PO 10 mg Q6H PRN Administration PAIN Torsemide 20 mg 01/14/17 10:00 01/14/17 10:23 Demadex - PO 20 mg DAILY FLORENTINO Administration ASSESSMENT/PLAN: Assessment: 81 male with pmhx of CAD, DM II, HTN, and CAD admitted with bilateral groin draining abscess with cellulitis. # Bilateral Groin Abscess - s/p I&D by surgery, wound cx +presumptive MRSA - Will continue Vanco, Ceftriaxone, Flagyl, but will likely continue just vanco tmrw, will get vanco trough in AM, contact precautions - Warm compress, daily Sitz baths, pain control w/ Tylenol PRN, if pt needs more pain control can give Roxicodone 5mg # NASRIN on CKD - B/L around 1.4, rising slightly, will stop ACEi and Spironolactone, obtain UA # Hyperkalemia - Will give kayexalate, repeat at 8pm, if still high, assess if pt had bowel movement, can give another kayexalate, will d/c ACEi and Spironolactone # Hx of CHF - Not in exac, pt on home Torsemide 20mg QD PRN, but will give daily as we are holding Spironolactone in light of hyperK, continue Toprol XL 100mg # Hx of HTN - Currently on Norvasc 5mg and Toprol XL 50mg, hold home Spironolactone + ACEi due to NASRIN # Hx of CAD - Continue ASA daily # Hx of HLD - Continue lipitor # Hx of DM2 - ISS + BGM ACHS, well controlled # FEN - No IVF, K+ sodium renal diet, # PPx - HSQ TID, No GI ppx, will order PT # Dispo - f/u with ID and surgery, pt likely needs daily dressing changes, applied for VNS but VNS will only do dressing cx every other day, will order PT to see if pt qualifies for SNF, otherwise pt will need to teach family member how to change dressing. d/w Dr Mckeon and Dr Charan Charles MD - PGY1 Internal Medicine Visit type - Emergency Visit Emergency Visit: No - New Patient This patient is new to me today: Yes Date on this admission: 01/14/17 - Critical Care Critical Care patient: No
[2017-01-14] MEDS: HEPARIN NA (PORCINE) 5,000 UNITS/ML 1ML VIAL SQ SCH ×2 (14:00→21:47)
[2017-01-14] MEDS ORDERED: SODIUM POLYSTYRENE SULFONATE 15 GM/60 ML BOTTLE PO ONE (14:00)
--- NOTE | 2017-01-14 16:13 | PN ---
Teaching Attending Note Name of Resident: Pastora Charles ATTENDING PHYSICIAN STATEMENT Time of evaluation: 10:25 AM I saw and evaluated the patient. I reviewed the resident's note and discussed the case with the resident. I agree with the resident's findings and plan as documented. SUBJECTIVE: Patient seen and examined, Denies pain in groin area, no fevers chills or dizziness. no dyspnea, chest pain, palpitations, abdominal or urinary complaints. OBJECTIVE: Vital Signs Period Temp Pulse Resp BP Sys/Xiao Pulse Ox Last 24 Hr 97.9 F-98.3 F 62-86 18-20 111-146/60-70 98 Intake & Output 01/11/17 01/12/17 01/13/17 01/14/17 23:59 23:59 23:59 23:59 Intake Total 625 500 Output Total 300 400 Balance 325 100 Weight 203 lb 5 oz General: sitting in bed in no acute distress Neck: no JVD CVS S1S2 regular Chest CTAB, no rales or wheezing Extremities/groin - right medial inner thigh with large 5 cm oval indurated area /warm/non tender with central packing with minimal sanguinopurulent drainage, small 1 mm left groin developing pustule with surrounding erythema, non tender Home Medication List Medication Instructions Recorded Confirmed Type Aspirin [Aspirin EC] 81 mg PO DAILY 06/20/14 01/14/17 History Amlodipine Besylate/Benazepril 2 tab PO DAILY 01/14/17 01/14/17 History [Lotrel 5-10 mg Capsule] Metoprolol Succinate [Toprol Xl] 100 mg PO DAILY 01/14/17 01/14/17 History Terazosin HCl 2 mg PO DAILY 01/14/17 01/14/17 History Torsemide [Demadex] 20 mg PO DAILY PRN 01/14/17 01/14/17 History Active Medications Generic Name Dose Route Start Last Admin Trade Name Freq PRN Reason Stop Dose Admin Acetaminophen 650 mg 01/13/17 13:54 01/14/17 10:34 Tylenol - PO 650 mg Q6H PRN Administration PAIN Amlodipine Besylate 5 mg 01/14/17 10:00 01/14/17 10:23 Norvasc - PO 5 mg DAILY [facility] Administration Aspirin 81 mg 01/14/17 10:00 01/14/17 10:23 Ecotrin - PO 81 mg DAILY [facility] Administration Atorvastatin Calcium 20 mg 01/13/17 22:00 01/13/17 21:11 Lipitor - PO 20 mg HS [facility] Administration Heparin Sodium (Porcine) 5,000 unit 01/13/17 22:00 01/14/17 14:00 Heparin - SQ 5,000 unit TID [facility] Administration Metronidazole 100 mls @ 100 mls/hr 01/13/17 18:00 01/14/17 10:24 Flagyl 500mg Premixed Ivpb - IVPB 100 mls/hr Q8H-IV [facility] Administration Vancomycin HCl 1,250 mg/ 250 mls @ 166.667 mls/hr 01/14/17 12:00 01/14/17 12: 36 Dextrose IVPB 166.667 mls/hr DAILY@1200 [facility] Administration Protocol Ceftriaxone Sodium 2 gm/ 100 mls @ 200 mls/hr 01/14/17 10:00 01/14/17 11:09 Dextrose IVPB 200 mls/hr DAILY [facility] Administration Insulin Aspart 1 vial 01/13/17 16:30 01/14/17 11:51 Novolog Vial Sliding Scale - SQ Not Given ACHS [facility] Protocol Metoprolol Succinate 50 mg 01/14/17 10:00 01/14/17 10:34 Toprol Xl - PO 50 mg DAILY [facility] Administration Torsemide 20 mg 01/14/17 10:00 01/14/17 10:23 Demadex - PO 20 mg DAILY [facility] Administration Laboratory Results - last 24 hr 01/13/17 01/13/17 01/14/17 17:12 21:08 06:14 WBC RBC Hgb Hct MCV MCH MCHC RDW Plt Count MPV Neutrophils % Lymphocytes % Monocytes % Eosinophils % Basophils % Sodium Potassium Chloride Carbon Dioxide Anion Gap BUN Creatinine Creat Clearance w eGFR POC Glucometer 177 128 126 Random Glucose Calcium Total Bilirubin AST ALT Alkaline Phosphatase Total Protein Albumin 01/14/17 01/14/17 01/14/17 08:35 08:35 11:45 WBC 9.3 D RBC 4.35 Hgb 12.7 Hct 38.7 MCV 89.0 MCH 29.2 MCHC 32.8 RDW 14.9 Plt Count 422 MPV 6.8 L Neutrophils % 77.1 Lymphocytes % 10.1 D Monocytes % 9.1 Eosinophils % 3.2 Basophils % 0.5 Sodium 138 Potassium 5.4 H Chloride 105 Carbon Dioxide 26 Anion Gap 7 L BUN 19 H Creatinine 1.5 H Creat Clearance w eGFR 44.92 POC Glucometer 115 Random Glucose 187 H D Calcium 8.2 L Total Bilirubin 0.4 D AST 13 L D ALT 36 Alkaline Phosphatase 75 Total Protein 7.1 Albumin 3.0 L Wound cultures - presumed MRSA ASSESSMENT AND PLAN: 81 yom with NIDDM, ischemic cardiomyopathy (last EF 30% in 2014), CAD, HTN, HLD admitted with right thigh abscess with cellulitis s/p I&D and left thigh pustule with cellulitis -Right thigh presumed MRSA abscess with cellulitis s/p I&D -Left thigh pustule with cellulitis, presumed MRSA -Hyperkalemia -Ischemic cardiomyopathy, non compliant with diuretics -Bandemia resolved -HTN -HLD Plan: Ceftriaxone/flagyl/vancomycin day 2, wound cultures presumed MRSA, anticipate transition to MRSA in 24 hours if no other organism. Follow up with ID. Warm compresses, sitz baths, dressing changes per surgery. Kayexalate x 1, Aldactone/ACEi d/dax for now. Low K diet. Repeat K levels later today. Continue torsemide, ASA/toprol/Norvasc. Check A1c, ISS, diabetic diet. Case management consult for home VNS for wound dressing. Dispo planning in 2-3 days if continues to improve. DIscussed with patient and all questions answered.
[2017-01-14] MEDS ORDERED: oxyCODONE HCL 5 MG TABLET PO PRN ×3 (19:50→20:04)
[2017-01-14] MEDS ORDERED: ACETAMINOPHEN 325 MG TABLET (FP) PO PRN (20:11)
[2017-01-14] MEDS: ATORVASTATIN CA 20 MG TABLET (FP) PO SCH (21:45)
[2017-01-15] MEDS: METRONIDAZOLE 500 MG PREMIXED 100 ML IVPB SCH ×3 (02:39→18:58)
[2017-01-15] MEDS: HEPARIN NA (PORCINE) 5,000 UNITS/ML 1ML VIAL SQ SCH ×3 (05:56→21:08)
[2017-01-15] MEDS: INSULIN SLIDING SCALE (NOVOLOG) 1 VIAL SQ SCH ×4 (06:13→21:09)
--- NOTE | 2017-01-15 08:00 | PN ---
Physical Exam: SUBJECTIVE: Patient seen and examined. Doing well, walked to bathroom. No fevers , chills. Ready to go home. Explained to pt that we need to find abx regimen. Pt stated that son will help with wound dressing changes along with VNS. Denies CP, SOB. OBJECTIVE: Vital Signs Period Temp Pulse Resp BP Sys/Xiao Pulse Ox Last 24 Hr 97.9 F-98.7 F 62-75 18-20 112-146/70-76 98 GEN: AAOx3, NAD, Lying comfortably, not in pain HEENT: PERRLA, EOMi CV: S1, S2, RRR, No murmur LUNG: CTABL ABD: Soft, NT, ND, normoactive BS MSK: No edema, no erythema GROIN: R medial thigh area decreased induration compared to yest, packed with iodoform, no purulent drainage, decreased erythema L area behind scrotum, no packing, minimal purulence L medial thigh area of incision, no packing, minimal underlying fluctulance, no surrounding erythema NEURO: No sensation or MSK deficits Laboratory Last Values WBC 9.3 K/mm3 (4.0-10.0) D 01/14/17 08:35 RBC 4.35 M/mm3 (4.00-5.60) 01/14/17 08:35 Hgb 12.7 GM/dL (11.7-16.9) 01/14/17 08:35 Hct 38.7 % (35.4-49) 01/14/17 08:35 MCV 89.0 fl (80-96) 01/14/17 08:35 MCH 29.2 pg (25.7-33.7) 01/14/17 08:35 MCHC 32.8 g/dl (32.0-35.9) 01/14/17 08:35 RDW 14.9 % (11.9-15.9) 01/14/17 08:35 Plt Count 422 K/MM3 (134-434) 01/14/17 08:35 MPV 6.8 fl (7.5-11.1) L 01/14/17 08:35 Total Counted 100 01/13/17 07:30 Neutrophils % 77.1 % (42.8-82.8) 01/14/17 08:35 Neutrophils % (Manual) 56 % (42.8-82.8) 01/13/17 07:30 Band Neuts % (Manual) 6 % (0-10) 01/13/17 07:30 Lymphocytes % 10.1 % (8-40) D 01/14/17 08:35 Lymphocytes % (Manual) 25 % (8-40) 01/13/17 07:30 Monocytes % 9.1 % (3.8-10.2) 01/14/17 08:35 Monocytes % (Manual) 9 % (3.8-10.2) 01/13/17 07:30 Eosinophils % 3.2 % (0-4.5) 01/14/17 08:35 Eosinophils % (Manual) 2 % (0-4.5) 01/13/17 07:30 Basophils % 0.5 % (0-2.0) 01/14/17 08:35 Myelocytes % (Man) 1 % (0-2) 01/13/17 07:30 Sodium 138 mmol/L (136-145) 01/14/17 08:35 Potassium 5.3 mmol/L (3.5-5.1) H 01/14/17 20:30 Chloride 105 mmol/L (98-107) 01/14/17 08:35 Carbon Dioxide 26 mmol/L (21-32) 01/14/17 08:35 Anion Gap 7 (8-16) L 01/14/17 08:35 BUN 19 mg/dL (7-18) H 01/14/17 08:35 Creatinine 1.5 mg/dL (0.7-1.3) H 01/14/17 08:35 Creat Clearance w eGFR 44.92 (>60) 01/14/17 08:35 Random Glucose 187 mg/dL (74-106) H D 01/14/17 08:35 POC Glucometer 109 UNITS (80-120) 01/15/17 05:45 Calcium 8.2 mg/dL (8.5-10.1) L 01/14/17 08:35 Phosphorus 3.3 mg/dL (2.5-4.9) 01/13/17 07:30 Magnesium 2.4 mg/dL (1.8-2.4) 01/13/17 07:30 Total Bilirubin 0.4 mg/dL (0.2-1.0) D 01/14/17 08:35 AST 13 U/L (15-37) L D 01/14/17 08:35 ALT 36 U/L (12-78) 01/14/17 08:35 Alkaline Phosphatase 75 U/L (45-117) 01/14/17 08:35 Total Protein 7.1 g/dl (6.4-8.2) 01/14/17 08:35 Albumin 3.0 g/dl (3.4-5.0) L 01/14/17 08:35 Active Medications Generic Name Dose Route Start Last Admin Trade Name Freq PRN Reason Stop Dose Admin Acetaminophen 325 mg 01/14/17 20:11 01/14/17 20:21 Tylenol - PO 325 mg Q6H PRN Administration PAIN Amlodipine Besylate 5 mg 01/14/17 10:00 01/14/17 10:23 Norvasc - PO 5 mg DAILY [facility] Administration Aspirin 81 mg 01/14/17 10:00 01/14/17 10:23 Ecotrin - PO 81 mg DAILY [facility] Administration Atorvastatin Calcium 20 mg 01/13/17 22:00 01/14/17 21:45 Lipitor - PO 20 mg HS [facility] Administration Heparin Sodium (Porcine) 5,000 unit 01/13/17 22:00 01/15/17 05:56 Heparin - SQ 5,000 unit TID [facility] Administration Metronidazole 100 mls @ 100 mls/hr 01/13/17 18:00 01/15/17 02:39 Flagyl 500mg Premixed Ivpb - IVPB 100 mls/hr Q8H-IV [facility] Administration Vancomycin HCl 1,250 mg/ 250 mls @ 166.667 mls/hr 01/14/17 12:00 01/14/17 12: 36 Dextrose IVPB 166.667 mls/hr DAILY@1200 [facility] Administration Protocol Ceftriaxone Sodium 2 gm/ 100 mls @ 200 mls/hr 01/14/17 10:00 01/14/17 11:09 Dextrose IVPB 200 mls/hr DAILY [facility] Administration Insulin Aspart 1 vial 01/13/17 16:30 01/15/17 06:13 Novolog Vial Sliding Scale - SQ Not Given ACHS [facility] Protocol Metoprolol Succinate 100 mg 01/15/17 10:00 Toprol Xl - PO DAILY [facility] Oxycodone HCl 5 mg 01/14/17 20:04 11/08/17 20:20 Roxicodone - PO 5 mg Q6H PRN Administration PAIN Torsemide 20 mg 01/14/17 10:00 01/14/17 10:23 Demadex - PO 20 mg DAILY [facility] Administration ASSESSMENT/PLAN: 81 male with pmhx of CAD, DM II, HTN, and CAD admitted with bilateral groin draining abscess with cellulitis. # Bilateral Groin Abscess - s/p I&D by surgery, wound cx +MRSA - D/c Cef , continue Vanc for MRSA, will eventually switch to Clindamycin 300mg TID, continue contact precautions - Warm compress, daily Sitz baths, pain control w/ Percocet PRN # Soft Stools - C.diff toxin and antigen ordered, will continue Flagyl until results are back, start probiotics # NASRIN on CKD - now 1.7, but pt came in with 1.6, FeUrea 38.8% suggestive of intrinsic renal, will obtain UA, pt already received Torsamide, hold for tmrw, continue to hold ACEi and Spironolactone # Hyperkalemia - s/p kayexalate and BMs, monitor in AM, d/c ACEi and Spironolactone # Hx of CHF - Not in exac, pt on home Torsemide 20mg QD PRN, but will give daily as we are holding Spironolactone in light of hyperK, continue Toprol XL 100mg # Hx of HTN - well controlled on Norvasc 5mg and Toprol XL 100mg, hold home Spironolactone + ACEi due to NASRIN # Hx of CAD - Continue ASA daily # Hx of HLD - Continue lipitor # Hx of DM2 - ISS + BGM ACHS, well controlled # FEN - No IVF, K+ sodium renal diet, # PPx - HSQ TID, No GI ppx, will order PT # Dispo - likely d/c tmrw, pt will likely be d/c home w/ VNS care, states that son can help him change his dressings, will monitor Cr tmrw. will d/w Dr Mckeon, Dr Resendez, and Dr Charan Charles MD - PGY1 Internal Medicine Visit type - Emergency Visit Emergency Visit: No - New Patient This patient is new to me today: No - Critical Care Critical Care patient: No - Discharge Referral Referred to [facility] Med P.C.: No
[2017-01-15 09:18] LABS: ANION GAP 10 (8-16); CALCIUM 7.8 mg/dL (8.5-10.1); CO2 25 mmol/L (21-32); CREATININE 1.7 mg/dL (0.7-1.3); GLUCOSE,RANDOM 187 mg/dL (74-106)
[2017-01-15] MEDS ORDERED: PT OWN MED DRAWER 7, Y5N ONE (09:43)
--- NOTE | 2017-01-15 10:13 | OP ---
DATE OF OPERATION: 01/13/2017 PREOPERATIVE DIAGNOSIS: Soft tissue abscess of right medial thigh and left perineum. PROCEDURE: Incision and drainage right medial thigh abscess and left perineal abscess. SURGEON: Flavio Resendez MD ANESTHESIA: Local with IV sedation. OPERATIVE FINDINGS: A soft tissue abscess involving the medial aspect of the right thigh and a perineal abscess just to the left of the midline. The rest of the findings were unremarkable. DESCRIPTION OF PROCEDURE: The patient was placed on the operating table in the supine position, and then, his legs placed in the dorsal lithotomy position. The area over the abscesses was prepped with Betadine and draped in sterile fashion. Then, the area injected with 1% Xylocaine and 0.5% Marcaine in equal concentration. Incision was carried out using the scalpel on both areas, and purulent material drained and sent for culture and sensitivity. The wounds were irrigated with normal saline and peroxide and packed with 1-inch Iodoform gauze, and then, dry sterile dressings were placed. The procedure terminated at this point, and the patient was transferred to the post-anesthesia care unit in stable condition, awake and alert. ESTIMATED BLOOD LOSS: Minimal. DRAINS: None. SPECIMENS: Culture and sensitivity of abscesses to Microbiology. I, Flavio Resendez MD, was physically present in the operating room from the time the patient was placed on the operating table until he was transferred to the post-anesthesia care unit in my accompaniment. MD MORENA Kelley/[id number]
[2017-01-15] MEDS: ASPIRIN COATED 81 MG TABLET.EC PO SCH (10:52)
[2017-01-15] MEDS: TORSEMIDE 20 MG TABLET (FP) PO SCH (10:52)
[2017-01-15] MEDS: METOPROLOL SUCCINATE 100 MG TAB.SR.24H (FP) PO SCH (10:52)
[2017-01-15] MEDS: amLODIPine BESYLATE 5 MG TABLET (FP) PO SCH (10:53)
[2017-01-15] MEDS: CEFTRIAXONE 2 GM in DEXTROSE 5%-WATER - 100 ML IVPB SCH (10:53)
--- NOTE | 2017-01-15 12:16 | PN ---
Progress Note (short form) - Note Progress Note: Attending Surgeon POD #2 No c/o VSS AF wounds open and granulating WBC normal; cultures noted IMP: doing well PLAN: LWC and OPD f/u. Flavio Resendez MD FACS
--- NOTE | 2017-01-15 12:44 | PN ---
Teaching Attending Note Name of Resident: Pastora Charles ATTENDING PHYSICIAN STATEMENT Time of evaluation: 9:45 AM I saw and evaluated the patient. I reviewed the resident's note and discussed the case with the resident. I agree with the resident's findings and plan as documented. SUBJECTIVE: Patient seen and examined. No pain or fevers currently, denies any nausea, vomiting or abdominal pain. no dizziness, dypsnea, chest pain noted. reports not taking his 'water pill' for 2 months now. OBJECTIVE: Vital Signs Period Temp Pulse Resp BP Sys/Xiao Pulse Ox Last 24 Hr 98.3 F-98.7 F 62-95 18-20 112-146/67-76 97-98 Intake & Output 01/12/17 01/13/17 01/14/17 01/15/17 23:59 23:59 23:59 23:59 Intake Total 625 800 100 Output Total 300 800 Balance 325 0 100 Weight 203 lb 5 oz General: sitting in bed in no acute distress Neck: no JVD CVS: S1S2 regular Chest CTAB, no rales or wheezing Genitourinary/extremities; minimal drainage on packing, softening surrounding induration, no tenderness elicited, Abdomen soft, NT, ND, positive bowel sounds Home Medication List Medication Instructions Recorded Confirmed Type Aspirin [Aspirin EC] 81 mg PO DAILY 06/20/14 01/14/17 History Amlodipine Besylate/Benazepril 2 tab PO DAILY 01/14/17 01/14/17 History [Lotrel 5-10 mg Capsule] Metoprolol Succinate [Toprol Xl] 100 mg PO DAILY 01/14/17 01/14/17 History Terazosin HCl 2 mg PO DAILY 01/14/17 01/14/17 History Torsemide [Demadex] 20 mg PO DAILY PRN 01/14/17 01/14/17 History Active Medications Generic Name Dose Route Start Last Admin Trade Name Freq PRN Reason Stop Dose Admin Acetaminophen 325 mg 01/14/17 20:11 01/14/17 20:21 Tylenol - PO 325 mg Q6H PRN Administration PAIN Amlodipine Besylate 5 mg 01/14/17 10:00 01/15/17 10:53 Norvasc - PO 5 mg DAILY [facility] Administration Aspirin 81 mg 01/14/17 10:00 01/15/17 10:52 Ecotrin - PO 81 mg DAILY [facility] Administration Atorvastatin Calcium 20 mg 01/13/17 22:00 01/14/17 21:45 Lipitor - PO 20 mg HS [facility] Administration Heparin Sodium (Porcine) 5,000 unit 01/13/17 22:00 01/15/17 05:56 Heparin - SQ 5,000 unit TID [facility] Administration Metronidazole 100 mls @ 100 mls/hr 01/13/17 18:00 01/15/17 10:53 Flagyl 500mg Premixed Ivpb - IVPB 100 mls/hr Q8H-IV [facility] Administration Vancomycin HCl 1,250 mg/ 250 mls @ 166.667 mls/hr 01/14/17 12:00 01/14/17 12: 36 Dextrose IVPB 166.667 mls/hr DAILY@1200 [facility] Administration Protocol Ceftriaxone Sodium 2 gm/ 100 mls @ 200 mls/hr 01/14/17 10:00 01/15/17 10:53 Dextrose IVPB 200 mls/hr DAILY [facility] Administration Insulin Aspart 1 vial 01/13/17 16:30 01/15/17 11:35 Novolog Vial Sliding Scale - SQ Not Given [facility] Protocol Metoprolol Succinate 100 mg 01/15/17 10:00 01/15/17 10:52 Toprol Xl - PO 100 mg DAILY [facility] Administration Oxycodone HCl 5 mg 01/14/17 20:04 01/14/17 20:20 Roxicodone - PO 5 mg Q6H PRN Administration PAIN Torsemide 20 mg 01/14/17 10:00 01/15/17 10:52 Demadex - PO 20 mg DAILY [facility] Administration Laboratory Results - last 24 hr 01/14/17 01/14/17 01/14/17 17:02 20:30 21:44 Sodium Potassium 5.3 H Chloride Carbon Dioxide Anion Gap BUN Creatinine POC Glucometer 122 157 Random Glucose Hemoglobin A1c % Calcium 01/15/17 01/15/17 01/15/17 05:45 08:36 08:36 Sodium 137 Potassium 3.8 D Chloride 102 Carbon Dioxide 25 Anion Gap 10 BUN 25 H D Creatinine 1.7 H POC Glucometer 109 Random Glucose 187 H Hemoglobin A1c % 6.9 H D Calcium 7.8 L 01/15/17 11:33 Sodium Potassium Chloride Carbon Dioxide Anion Gap BUN Creatinine POC Glucometer 100 Random Glucose Hemoglobin A1c % Calcium Wound gram stain/Cultures MRSA ASSESSMENT AND PLAN: 81 yom with NIDDM, ischemic cardiomyopathy (last EF 30% in 2015), CAD, HTN, HLD admitted with right thigh abscess with cellulitis s/p I&D and left thigh pustule with cellulitis -Right thigh MRSA abscess with cellulitis s/p I&D -Left thigh MRSA cellulitis -Hyperkalemia -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 Warm compresses, sitz baths, dressing changes per surgery. SOn to come in for dressing change teaching. K normalized. Continue to hold lisinopril and aldactone for now. BP stable. liberalize diet. Creatinine noted, will hold torsemide and retrive prior creatinine from PCP's office. Continue ASA/toprol/Norvasc. A1c noted, ISS, diabetic diet. Case management consult for home VNS for wound dressing has been consulted. Dispo home with VNS in 24 hours if electrolytes/volume status stable, able to transition to oral antibiotics and home dressing instructions provided to family. Plan discussed with patient in detail, all questions answered.
--- NOTE | 2017-01-15 14:51 | PN ---
Progress Note (short form) - Note Progress Note: doing well reports loose stools today no abdominal pain Vital Signs Period Temp Pulse Resp BP Sys/Xiao Pulse Ox Last 24 Hr 98.3 F-98.7 F 62-95 18-20 112-146/67-76 97-98 cor-rrr lungs clear abd soft,nt ext erythema resolved, still some induration left groin with erythema CBC, BMP 01/14/17 08:35 01/15/17 08:36 Microbiology 01/12/17 17:30 Abscess Gram Stain - Final 01/12/17 17:30 Abscess Wound Culture - Preliminary Mr S Aureus Proteus Species 01/13/17 14:30 Wound-Other Wound Culture - Preliminary Staphylococcus Latex Coag Pos 01/13/17 14:30 Wound Wound Culture - Preliminary Staphylococcus Latex Coag Pos 01/12/17 16:00 Blood - Peripheral Venous Blood Culture - Preliminary NO GROWTH OBTAINED AFTER 48 HOURS, INCUBATION TO CONTINUE FOR 3 DAYS. 01/12/17 16:15 Blood - Peripheral Venous Blood Culture - Preliminary NO GROWTH OBTAINED AFTER 48 HOURS, INCUBATION TO CONTINUE FOR 3 DAYS. Laboratory Tests 01/15/17 11:05 Vancomycin Pre-Dose 11.301 H imp/reccd 81 year old diabetic man admitted with one week of increasing discomfort in both groin areas bilateral abscesses/soft tissue infection s/p incision and drainage MRSA d/c rocephin continue vanco and flagyl for now if cdiff is negative can switch to po clindamycin in am his ckd will make it difficult to use bactrim add probiotics Problem List - Problems (1) Cellulitis and abscess of right leg Code(s): L03.115 - CELLULITIS OF RIGHT LOWER LIMB; L02.415 - CUTANEOUS ABSCESS OF RIGHT LOWER LIMB (2) Cellulitis and abscess of left leg Code(s): L03.116 - CELLULITIS OF LEFT LOWER LIMB; L02.416 - CUTANEOUS ABSCESS OF LEFT LOWER LIMB
[2017-01-15] MEDS: LACTOBACILLUS ACIDOPHILUS 1 EACH TAB (FP) PO SCH (15:30)
[2017-01-15] MEDS: VANCOMYCIN 1,250 MG in DEXTROSE 5%-WATER - 250 ML IVPB SCH (15:30)
[2017-01-15 15:56] LABS: URINE APPEARANCE CLEAR; URINE BILIRUBIN NEGATIVE (NEGATIVE); URINE BLOOD NEGATIVE (NEGATIVE); URINE COLOR LTYELLOW; URINE GLUCOSE (UA) NEGATIVE (NEGATIVE); URINE KETONE NEGATIVE (NEGATIVE); URINE NITRITE NEGATIVE (NEGATIVE); URINE PROTEIN NEGATIVE (NEGATIVE); URINE UROBILINOGEN NEGATIVE mg/dL (0.2-1.0)
[2017-01-15 17:49] LABS: URINE LEUK ESTERASE Negative (NEGATIVE)
[2017-01-15] MEDS: ATORVASTATIN CA 20 MG TABLET (FP) PO SCH (21:09)
[2017-01-16] MEDS: METRONIDAZOLE 500 MG PREMIXED 100 ML IVPB SCH ×2 (01:29→10:03)
[2017-01-16] MEDS: HEPARIN NA (PORCINE) 5,000 UNITS/ML 1ML VIAL SQ SCH (06:02)
[2017-01-16] MEDS: INSULIN SLIDING SCALE (NOVOLOG) 1 VIAL SQ SCH ×2 (06:39→11:30)
[2017-01-16 07:51] LABS: ANION GAP 11 (8-16); CALCIUM 8.5 mg/dL (8.5-10.1); CO2 24 mmol/L (21-32); CREATININE 1.9 mg/dL (0.7-1.3); GLUCOSE,RANDOM 126 mg/dL (74-106)
--- NOTE | 2017-01-16 08:11 | PN ---
Physical Exam: SUBJECTIVE: Patient seen and examined. Doing well, didn't sleep well last night due to BGM checks. Asymptomatic. States no groin pain, will get warm compress in AM. OBJECTIVE: Vital Signs Period Temp Pulse Resp BP Sys/Xiao Pulse Ox Last 24 Hr 98.0 F-98.5 F 67-75 18-20 109-138/51-72 97-97 GEN: AAOx3, NAD, Lying comfortably, not in pain HEENT: PERRLA, EOMi CV: S1, S2, RRR, No murmur LUNG: CTABL ABD: Soft, NT, ND, normoactive BS MSK: No edema, no erythema GROIN: R medial thigh area decreased induration compared to yest, packed with iodoform, no purulent drainage, decreased erythema L area behind scrotum, no packing, minimal purulence L medial thigh area of incision, no packing, minimal underlying fluctulance, no surrounding erythema NEURO: No sensation or MSK deficits Laboratory Last Values WBC 9.3 K/mm3 (4.0-10.0) D 01/14/17 08:35 RBC 4.35 M/mm3 (4.00-5.60) 01/14/17 08:35 Hgb 12.7 GM/dL (11.7-16.9) 01/14/17 08:35 Hct 38.7 % (35.4-49) 01/14/17 08:35 MCV 89.0 fl (80-96) 01/14/17 08:35 MCH 29.2 pg (25.7-33.7) 01/14/17 08:35 MCHC 32.8 g/dl (32.0-35.9) 01/14/17 08:35 RDW 14.9 % (11.9-15.9) 01/14/17 08:35 Plt Count 422 K/MM3 (134-434) 01/14/17 08:35 MPV 6.8 fl (7.5-11.1) L 01/14/17 08:35 Total Counted 100 01/13/17 07:30 Neutrophils % 77.1 % (42.8-82.8) 01/14/17 08:35 Neutrophils % (Manual) 56 % (42.8-82.8) 01/13/17 07:30 Band Neuts % (Manual) 6 % (0-10) 01/13/17 07:30 Lymphocytes % 10.1 % (8-40) D 01/14/17 08:35 Lymphocytes % (Manual) 25 % (8-40) 01/13/17 07:30 Monocytes % 9.1 % (3.8-10.2) 01/14/17 08:35 Monocytes % (Manual) 9 % (3.8-10.2) 01/13/17 07:30 Eosinophils % 3.2 % (0-4.5) 01/14/17 08:35 Eosinophils % (Manual) 2 % (0-4.5) 01/13/17 07:30 Basophils % 0.5 % (0-2.0) 01/14/17 08:35 Myelocytes % (Man) 1 % (0-2) 01/13/17 07:30 Sodium 137 mmol/L (136-145) 01/16/17 06:10 Potassium 4.2 mmol/L (3.5-5.1) 01/16/17 06:10 Chloride 102 mmol/L (98-107) 01/16/17 06:10 Carbon Dioxide 24 mmol/L (21-32) 01/16/17 06:10 Anion Gap 11 (8-16) 01/16/17 06:10 BUN 34 mg/dL (7-18) H D 01/16/17 06:10 Creatinine 1.9 mg/dL (0.7-1.3) H 01/16/17 06:10 Creat Clearance w eGFR 44.92 (>60) 01/14/17 08:35 POC Glucometer 120 UNITS (80-120) 01/16/17 05:54 Random Glucose 126 mg/dL (74-106) H D 01/16/17 06:10 Hemoglobin A1c % 6.9 % (4.8-6.0) H D 01/15/17 08:36 Calcium 8.5 mg/dL (8.5-10.1) 01/16/17 06:10 Phosphorus 3.3 mg/dL (2.5-4.9) 01/13/17 07:30 Magnesium 2.4 mg/dL (1.8-2.4) 01/13/17 07:30 Total Bilirubin 0.4 mg/dL (0.2-1.0) D 01/14/17 08:35 AST 13 U/L (15-37) L D 01/14/17 08:35 ALT 36 U/L (12-78) 01/14/17 08:35 Alkaline Phosphatase 75 U/L (45-117) 01/14/17 08:35 Total Protein 7.1 g/dl (6.4-8.2) 01/14/17 08:35 Albumin 3.0 g/dl (3.4-5.0) L 01/14/17 08:35 Urine Color Ltyellow 01/15/17 14:30 Urine Appearance Clear 01/15/17 14:30 Urine pH 5.0 (5.0-8.0) 01/15/17 14:30 Ur Specific [place] 1.009 (1.001-1.035) 01/15/17 14:30 Urine Protein Negative (NEGATIVE) 01/15/17 14:30 Urine Glucose (UA) Negative (NEGATIVE) 01/15/17 14:30 Urine Ketones Negative (NEGATIVE) 01/15/17 14:30 Urine Blood Negative (NEGATIVE) 01/15/17 14:30 Urine Nitrite Negative (NEGATIVE) 01/15/17 14:30 Urine Bilirubin Negative (NEGATIVE) 01/15/17 14:30 Urine Urobilinogen Negative mg/dL (0.2-1.0) 01/15/17 14:30 Ur Leukocyte Esterase Negative (NEGATIVE) 01/15/17 14:30 Ur Random Sodium 85 MMOL/L 01/15/17 11:20 Ur Random Potassium 16.2 MMOL/L 01/15/17 11:20 Ur Random Chloride 87 MMOL/L 01/15/17 11:20 Ur Random Urea Nitrogn 363 mg/dL 01/15/17 13:01 Urine Creatinine 63.7 mg/dL (20-370) 01/15/17 11:20 Vancomycin Pre-Dose 11.301 ug/ml (5.0-10.0) H 01/15/17 11:05 Active Medications Generic Name Dose Route Start Last Admin Trade Name Freq PRN Reason Stop Dose Admin Acetaminophen 325 mg 01/14/17 20:11 01/14/17 20:21 Tylenol - PO 325 mg Q6H PRN Administration PAIN Amlodipine Besylate 5 mg 01/14/17 10:00 01/15/17 10:53 Norvasc - PO 5 mg DAILY FLORENTINO Administration Aspirin 81 mg 01/14/17 10:00 01/15/17 10:52 Ecotrin - PO 81 mg DAILY FLORENTINO Administration Atorvastatin Calcium 20 mg 01/13/17 22:00 01/15/17 21:09 Lipitor - PO 20 mg HS FLORENTINO Administration Heparin Sodium (Porcine) 5,000 unit 01/13/17 22:00 01/16/17 06:02 Heparin - SQ 5,000 unit TID FLORENTINO Administration Metronidazole 100 mls @ 100 mls/hr 01/13/17 18:00 01/16/17 01:29 Flagyl 500mg Premixed Ivpb - IVPB 100 mls/hr Q8H-IV FLORENTINO Administration Vancomycin HCl 1,250 mg/ 250 mls @ 166.667 mls/hr 01/14/17 12:00 01/15/17 15: 30 Dextrose IVPB 166.667 mls/hr DAILY@1200 FLORENTINO Administration Protocol Insulin Aspart 1 vial 01/13/17 16:30 01/16/17 06:39 Novolog Vial Sliding Scale - SQ Not Given ACHS [facility] Protocol Lactobacillus Acidophilus 1 tab 01/15/17 15:00 01/15/17 15:30 Bacid - PO 1 tab DAILY FLORENTINO Administration Metoprolol Succinate 100 mg 01/15/17 10:00 01/15/17 10:52 Toprol Xl - PO 100 mg DAILY FLORENTINO Administration Oxycodone HCl 5 mg 01/14/17 20:04 01/14/17 20:20 Roxicodone - PO 5 mg Q6H PRN Administration PAIN ASSESSMENT/PLAN: 81 male with pmhx of CAD, DM II, HTN, and CAD admitted with bilateral groin draining abscess with cellulitis. # Bilateral Groin Abscess - s/p I&D by surgery, wound cx +MRSA - Change to Clindamycin 300mg TID, continue contact precautions - Warm compress, daily Sitz baths, pain control w/ Percocet PRN # NASRIN on CKD - rising slowly, now 1.9, FeUrea 38.8% suggestive of intrinsic renal, held Torsamide, ACEi, and Spironolactone, UA neg, repeat BMP in afternoon # Soft Stools - C.diff negative, d/c Flagyl # Hyperkalemia - resolved, s/p kayexalate and BMs, continue to hold ACEi and Spironolactone # Hx of CHF - Not in exac, held diuretics due to NASRIN # Hx of HTN - well controlled on Norvasc 5mg and Toprol XL 100mg, hold home Spironolactone + ACEi due to NASRIN # Hx of CAD - Continue ASA daily # Hx of HLD - Continue lipitor # Hx of DM2 - ISS + BGM ACHS, well controlled # FEN - No IVF, K+ sodium renal diet, # PPx - HSQ TID, No GI ppx, walked well w/ PT # Dispo - Cr rising today, asymptomatic, will repeat BMP in afternoon, if stable can d/c plan will d/w Dr Mike Charles MD - PGY1 Internal Medicine Visit type - Emergency Visit Emergency Visit: No - New Patient This patient is new to me today: No - Critical Care Critical Care patient: No - Discharge Referral Referred to [facility] No
[2017-01-16] MEDS: amLODIPine BESYLATE 5 MG TABLET (FP) PO SCH (10:03)
[2017-01-16] MEDS: METOPROLOL SUCCINATE 100 MG TAB.SR.24H (FP) PO SCH (10:03)
[2017-01-16] MEDS: ASPIRIN COATED 81 MG TABLET.EC PO SCH (10:03)
[2017-01-16] MEDS: LACTOBACILLUS ACIDOPHILUS 1 EACH TAB (FP) PO SCH (10:03)
[2017-01-16] MEDS ORDERED: CLINDAMYCIN HCL 300 MG CAPSULE PO SCH (12:00)
[2017-01-16] MEDS ORDERED: PT OWN MED DRAWER 7, Y5N ONE (12:35)
[2017-01-16 13:17] LABS: ANION GAP 11 (8-16); CO2 25 mmol/L (21-32); CREATININE 1.8 mg/dL (0.7-1.3); GLUCOSE,RANDOM 159 mg/dL (74-106)
[2017-01-16 14:44] VITALS: BP 133/72; PULSE 65; TEMP 98.3
--- NOTE | 2017-01-16 17:06 | DS ---
Physical Exam: SUBJECTIVE: Patient seen and examined. Doing well, didn't sleep well last night due to BGM checks. Asymptomatic. States no groin pain, will get warm compress in AM. OBJECTIVE: Vital Signs Period Temp Pulse Resp BP Sys/Xiao Pulse Ox Last 24 Hr 98.0 F-98.6 F 65-70 20-20 109-138/70-72 97-97 PHYSICAL EXAM GEN: AAOx3, NAD, Lying comfortably, not in pain HEENT: PERRLA, EOMi CV: S1, S2, RRR, No murmur LUNG: CTABL ABD: Soft, NT, ND, normoactive BS MSK: No edema, no erythema GROIN: R medial thigh area decreased induration compared to yest, packed with iodoform, no purulent drainage, decreased erythema L area behind scrotum, no packing, minimal purulence L medial thigh area of incision, no packing, minimal underlying fluctulance, no surrounding erythema NEURO: No sensation or MSK deficits LABS Laboratory Last Values WBC 9.3 K/mm3 (4.0-10.0) D 01/14/17 08:35 RBC 4.35 M/mm3 (4.00-5.60) 01/14/17 08:35 Hgb 12.7 GM/dL (11.7-16.9) 01/14/17 08:35 Hct 38.7 % (35.4-49) 01/14/17 08:35 MCV 89.0 fl (80-96) 01/14/17 08:35 MCH 29.2 pg (25.7-33.7) 01/14/17 08:35 MCHC 32.8 g/dl (32.0-35.9) 01/14/17 08:35 RDW 14.9 % (11.9-15.9) 01/14/17 08:35 Plt Count 422 K/MM3 (134-434) 01/14/17 08:35 MPV 6.8 fl (7.5-11.1) L 01/14/17 08:35 Total Counted 100 01/13/17 07:30 Neutrophils % 77.1 % (42.8-82.8) 01/14/17 08:35 Neutrophils % (Manual) 56 % (42.8-82.8) 01/13/17 07:30 Band Neuts % (Manual) 6 % (0-10) 01/13/17 07:30 Lymphocytes % 10.1 % (8-40) D 01/14/17 08:35 Lymphocytes % (Manual) 25 % (8-40) 01/13/17 07:30 Monocytes % 9.1 % (3.8-10.2) 01/14/17 08:35 Monocytes % (Manual) 9 % (3.8-10.2) 01/13/17 07:30 Eosinophils % 3.2 % (0-4.5) 01/14/17 08:35 Eosinophils % (Manual) 2 % (0-4.5) 01/13/17 07:30 Basophils % 0.5 % (0-2.0) 01/14/17 08:35 Myelocytes % (Man) 1 % (0-2) 01/13/17 07:30 Sodium 137 mmol/L (136-145) 01/16/17 12:38 Potassium 3.9 mmol/L (3.5-5.1) 01/16/17 12:38 Chloride 101 mmol/L (98-107) 01/16/17 12:38 Carbon Dioxide 25 mmol/L (21-32) 01/16/17 12:38 Anion Gap 11 (8-16) 01/16/17 12:38 BUN 32 mg/dL (7-18) H 01/16/17 12:38 Creatinine 1.8 mg/dL (0.7-1.3) H 01/16/17 12:38 Creat Clearance w eGFR 44.92 (>60) 01/14/17 08:35 POC Glucometer 99 UNITS (80-120) 01/16/17 11:28 Random Glucose 159 mg/dL (74-106) H D 01/16/17 12:38 Hemoglobin A1c % 6.9 % (4.8-6.0) H D 01/15/17 08:36 Calcium 8.0 mg/dL (8.5-10.1) L 01/16/17 12:38 Phosphorus 3.3 mg/dL (2.5-4.9) 01/13/17 07:30 Magnesium 2.4 mg/dL (1.8-2.4) 01/13/17 07:30 Total Bilirubin 0.4 mg/dL (0.2-1.0) D 01/14/17 08:35 AST 13 U/L (15-37) L D 01/14/17 08:35 ALT 36 U/L (12-78) 01/14/17 08:35 Alkaline Phosphatase 75 U/L (45-117) 01/14/17 08:35 Total Protein 7.1 g/dl (6.4-8.2) 01/14/17 08:35 Albumin 3.0 g/dl (3.4-5.0) L 01/14/17 08:35 Urine Color Ltyellow 01/15/17 14:30 Urine Appearance Clear 01/15/17 14:30 Urine pH 5.0 (5.0-8.0) 01/15/17 14:30 Ur Specific [place] 1.009 (1.001-1.035) 01/15/17 14:30 Urine Protein Negative (NEGATIVE) 01/15/17 14:30 Urine Glucose (UA) Negative (NEGATIVE) 01/15/17 14:30 Urine Ketones Negative (NEGATIVE) 01/15/17 14:30 Urine Blood Negative (NEGATIVE) 01/15/17 14:30 Urine Nitrite Negative (NEGATIVE) 01/15/17 14:30 Urine Bilirubin Negative (NEGATIVE) 01/15/17 14:30 Urine Urobilinogen Negative mg/dL (0.2-1.0) 01/15/17 14:30 Ur Leukocyte Esterase Negative (NEGATIVE) 01/15/17 14:30 Ur Random Sodium 85 MMOL/L 01/15/17 11:20 Ur Random Potassium 16.2 MMOL/L 01/15/17 11:20 Ur Random Chloride 87 MMOL/L 01/15/17 11:20 Ur Random Urea Nitrogn 363 mg/dL 01/15/17 13:01 Urine Creatinine 63.7 mg/dL (20-370) 01/15/17 11:20 Vancomycin Pre-Dose 11.301 ug/ml (5.0-10.0) H 01/15/17 11:05 HOSPITAL COURSE: Date of Admission:01/13/17 Date of Discharge: 01/16/17 Briefly, Mr Richter is an 81yo M with a PMHx of CAD, DM2, CKD who presented with 5 days of pain and abscess in R medial thigh and L perineum posterior to scrotum. As per patient, he thought he had a "bug bite" and scratched the areas , they subsequently became inflammed, but he sustained no fevers, chills. The areas grew into fluctulant abscesses. On admission he was afebrile, not tachycardic or tachypneic, without a white count. The patient was started on Clindamycin initially, but then switched to Vancomycin, Ceftriaxone, and Flagyl under ID recommendations. He was seen by Dr Resendez (surgery) who drained both sites, and packed the larger R medial thigh abscess. Wound cultures grew MRSA. The patient was having soft stools, but C.diff was negative. The patient will be discharged on Clindamycin 500mg TID x 5 days. The patient's Cr function plateaued at around 1.8, he will see his primary care doctor within 4 days for a new BMP. We held his ACEi, Spironolactone, and Torsemide due to NASRIN and hyperkalemia. We will continue to hold these medications until patient sees PCP. He will have visiting nurse services. Patient understands hospital course and agrees with the plan. Minutes to complete discharge: 45 Discharge Summary Reason For Visit: CELLULITIS & ABSCESS OF LOWER EXTREMITY Condition: Good - Instructions Diet, Activity, Other Instructions: MEDICAL RECOMMENDATIONS: - You had two groin abscesses that grew MRSA, we are treating you with antibiotics - Please continue to use Sitzs baths/showers 2 x daily and warm compresses to the area - You will have visiting nurse to help change your dressing, your son will help you in between visits - Please check your weights daily, notify your doctor if weight gain > 3lbs in 2 days or swelling noted. Your water pills are being held on discharge because of your kidneys and will need to be resumed based on your weight, kidney function. -Your potassium was noted elevated and your aldactone and lisinopril have been held. Your BP has been stable off the medications. Advise home BP monitoring daily till next doctor visit and notify doctor if SBP (upper BP) < 100 or persistently > 135 or any dizziness noted. -You will need blood work to check your kidneys in 3-4 days with your doctor. -Your blood sugars have been stable off metformin. Advise to hold for now and check fasting blood sugar checks 2-3 times daily and notify your doctor if < 75 or persistently > 200 or any read > 400 noted. MEDICATION CHANGES: - STOP taking your Torsemide, Spironolactone, Metformin and Lotrel until you follow with your primary care doctor - START Norvasc (Amlodipine) 5mg daily - START Clindamycin 300mg three times a day for 5 more days - START Lactobacillus 1 tablet daily for 1 week FOLLOWUPS: - Dr. Spears (Primary Care Doctor) - Followup in within 3-4 days to get a Basic Metabolic Panel drawn to check for Kidney function - Dr. Resendez (Surgeon) - Followup in 1-2 weeks SURGICAL RECOMMENDATIONS: - Physical activity - Resume your normal everyday activity as tolerated no heavy lifting or exercise until seen by your surgeon. - You may walk unlimited amounts of and climb stairs. - You may resume driving the car when you feel safe and comfortable behind the wheel. - Diet - Eat healthy, high-fiber foods. Drink 6 to 8 glasses of liquid each day. This will assist in keeping your bowels are regular. - Pain management - You may take Tylenol or acetaminophen for pain but DO NOT TAKE any NSAIDS like motrin, ibuprofen etc. - Any pain prescription medication ordered should be taken as prescribed for moderate to severe pain. Please call the surgeon if you have: severe pain not relieved by medication, fever of 101 or higher, excessive bleeding or drainage on dressing, or inability to urinate. If you have serious symptoms of chest pain and shortness of breath, please return to the Emergency Room. Referrals: Flavio Resendez MD [Staff Physician] - 1 Week (Call the office at [phone] for a post operative appointment in 7 - 10 days.) Kierra Cummins MD [Primary Care Provider] - 1 Week (Your new appointment is January 20 at 12pm. ) Disposition: VNS/HOME HEALTH CARE - Home Medications Comprehensive Discharge Medication List: Ambulatory Orders Aspirin [Aspirin EC] 81 mg PO DAILY 06/20/14 Simvastatin [Zocor -] 40 mg PO DAILY #14 tablet 06/22/14 Metoprolol Succinate [Toprol Xl] 100 mg PO DAILY 01/14/17 Terazosin HCl 2 mg PO DAILY 01/14/17 Amlodipine Besylate [Norvasc -] 5 mg PO DAILY #15 tablet 01/16/17 Clindamycin [Cleocin -] 300 mg PO TID #15 capsule 01/16/17 Lactobacillus Acidophilus [Bacid -] 1 tab PO DAILY #7 tab 01/16/17 - Discharge Referral Referred to [facility] No
--- NOTE | 2017-01-16 17:36 | PN ---
Teaching Attending Note Name of Resident: Pastora Charles ATTENDING PHYSICIAN STATEMENT Time of evaluation: 10:15 AM I saw and evaluated the patient. I reviewed the resident's note and discussed the case with the resident. I agree with the resident's findings and plan as documented. SUBJECTIVE: patient seen and examined, wound improving, no new concerns. no fevers, chills, chest pain, palpitations, dyspnea or dizziness. OBJECTIVE: Vital Signs Period Temp Pulse Resp BP Sys/Xiao Pulse Ox Last 24 Hr 98.0 F-98.6 F 65-70 20-20 109-138/70-72 97-97 Intake & Output 01/13/17 01/14/17 01/15/17 01/16/17 23:59 23:59 23:59 23:59 Intake Total 625 800 850 800 Output Total 300 800 Balance 325 0 850 800 General: ambulating with PT in no acute distress CVS: S1S2 regular Chest: CTAB, no rales or wheezing abdomen: soft, NT, ND, positive bowel sounds genitourinary: groin wounds with packing, surrounding erythema/warmth improved Home Medication List Medication Instructions Recorded Confirmed Type RX: Aspirin [Aspirin EC] 81 mg PO DAILY 06/20/14 01/14/17 History RX: Metoprolol Succinate [Toprol 100 mg PO DAILY 01/14/17 01/14/17 History Xl] RX: Terazosin HCl 2 mg PO DAILY 01/14/17 01/14/17 History Laboratory Results - last 24 hr 01/15/17 01/15/17 01/16/17 14:30 21:07 05:54 Sodium Potassium Chloride Carbon Dioxide Anion Gap BUN Creatinine POC Glucometer 108 120 Random Glucose Calcium Ur Leukocyte Esterase Negative 01/16/17 01/16/17 01/16/17 06:10 11:28 12:38 Sodium 137 137 Potassium 4.2 3.9 Chloride 102 101 Carbon Dioxide 24 25 Anion Gap 11 11 BUN 34 H D 32 H Creatinine 1.9 H 1.8 H POC Glucometer 99 Random Glucose 126 H D 159 H D Calcium 8.5 8.0 L Ur Leukocyte Esterase ASSESSMENT AND PLAN: 81 yom with NIDDM, ischemic cardiomyopathy (last EF 30% in 2014), CAD, HTN, HLD admitted with right thigh abscess with cellulitis s/p I&D and left thigh pustule with cellulitis -Right thigh MRSA abscess with cellulitis s/p I&D -Left thigh MRSA cellulitis -Hyperkalemia -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 Change to clindamycin. Warm packs, sitz baths and outpatient surgery follow up. Wound care/packing training provided to son, VNS arranged. Creatinine plateaued, suspect from vanco/torsemide. Hold meds. Daily weight monitoring at home. K/BP stable off spironolactone/ACEi. Outpatient BP/chem-7 monitoring and resumptions of meds accordingly. Also blood sugars stable here, metformin not preferred. Will hold on d/c with home blood sugar monitoring. Home VNS, outpatient PCP follow up arranged. d/c home today.
== END 2017-01-16 17:04 | disposition home health service (06) | DRG 603 ==
LOC: JER 15:40 → JERBED 19:18 → INTOOBSV 19:18 → J6S 22:57 → OBSVTOIN 01-13 09:10 → J6S 01-14 14:13
PROVIDERS: ADMIT Internal Medicine; ATTEND Hospitalist
PROC: 0J9N0ZX Drainage of Right Lower Leg Subcutaneous Tissue and Fascia, Open Approach, Diagnostic (ICD-10-PCS; 2017-01-13)
PROC: 0W9M0ZX Drainage of Male Perineum, Open Approach, Diagnostic (ICD-10-PCS; principal; 2017-01-13 12:30)
DX: L03.115 Cellulitis of right lower limb (principal); N17.9 Acute kidney failure, unspecified; L03.314 Cellulitis of groin; I13.0 Hypertensive heart and chronic kidney disease with heart failure and stage 1 through stage 4 chronic kidney disease, or unspecified chronic kidney disease; I50.22 Chronic systolic (congestive) heart failure; L03.116 Cellulitis of left lower limb; I10 Essential (primary) hypertension; E78.5 Hyperlipidemia, unspecified; I25.10 Atherosclerotic heart disease of native coronary artery without angina pectoris; I25.2 Old myocardial infarction; L02.415 Cutaneous abscess of right lower limb; L02.416 Cutaneous abscess of left lower limb; E87.5 Hyperkalemia; B95.62 Methicillin resistant Staphylococcus aureus infection as the cause of diseases classified elsewhere; I25.5 Ischemic cardiomyopathy; D72.825 Bandemia; Z91.14 Patient's other noncompliance with medication regimen; Z87.891 Personal history of nicotine dependence; Z96.651 Presence of right artificial knee joint
CPT/HCPCS: 36415; 73700-TC-RT; 80048; 80053; 81003; 82436; 82570; 83036; 83735; 84100; 84132; 84133; 84300; 84540; 85025; 87040; 87070; 87186; 87205; 87324; 87449; 93005; 93010; 97116-GP; 97161-GP; 99282-25; G0378; G0480; J1644

== ENCOUNTER 2017-12-15 17:06 | Inpatient (IN) | payer MEDICARE, OTHER ==
--- NOTE | 2017-12-15 17:20 | PDOC ---
Rapid Medical Evaluation Chief Complaint: Wound Time Seen by Provider: 12/15/17 17:19 Medical Evaluation: Allergies Allergy/AdvReac Type Severity Reaction Status Date / Time No Known Allergies Allergy Verified 12/15/17 17:16 12/15/17 17:20 The patient presents with a chief complaint of: foot infection I have performed a brief in-person evaluation of this patient. Pertinent physical exam findings: vss, I have ordered the following: labs The patient will proceed to the ED for further evaluation. 12/15/17 17:25 Discharge Disposition - Referrals Referrals: Kierra Cummins MD [Primary Care Provider] - - Patient Instructions - Post Discharge Activity
[2017-12-15 18:02] LABS: BASO % 0.9 % (0-2.0); EOS % 1.5 % (0-4.5); HEMATOCRIT 43.7 % (35.4-49); HEMOGLOBIN 14.1 GM/dL (11.7-16.9); LYMPH % 15.6 % (8-40); MCH 29.1 pg (25.7-33.7); MCHC 32.4 g/dl (32.0-35.9); MEAN CELL VOLUME 89.8 fl (80-96); MEAN PLT VOLUME 7.7 fl (7.5-11.1); PLATELET COUNT 336 K/MM3 (134-434); RBC 4.86 M/mm3 (4.00-5.60); RDW 14.5 % (11.9-15.9); WHITE BLOOD COUNT 9.4 K/mm3 (4.0-10.0)
[2017-12-15 18:16] LABS: INR 1.13 (0.83-1.09); PROTHROMBIN TIME (PATIENT) 13.3 SEC (9.7-13.0)
[2017-12-15 18:19] LABS: ACTIVATED PTT 30.9 SECONDS (25.2-36.5)
--- NOTE | 2017-12-15 18:35 | PDOC ---
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 Also the dorsal aspect of his left foot is erythematous and tender neuro axox3 - Medical Decision Making 12/15/17 20:54 imp diabetes,early cellulitis plan admission
[2017-12-15 18:38] LABS: VENOUS PC02 41.8 mmHg (38-52); VENOUS PH 7.36 (7.32-7.42); VENOUS PO2 46.7 mmHg (28-48)
[2017-12-15 18:55] LABS: ALBUMIN 3.6 g/dl (3.4-5.0); ALK PHOS 81 U/L (45-117); ANION GAP 10 MMOL/L (8-16); BILIRUBIN,TOTAL 0.5 mg/dL (0.2-1); BLOOD UREA NITROGEN 46 mg/dL (7-18); CALCIUM 9.5 mg/dL (8.5-10.1); CHLORIDE 107 mmol/L (98-107); CO2 22 mmol/L (21-32); CREATININE 2.1 mg/dL (0.55-1.3); GLUCOSE,RANDOM 124 mg/dL (74-106); POTASSIUM 4.3 mmol/L (3.5-5.1); SGOT/AST 17 U/L (15-37); SGPT/ALT 36 U/L (13-61); SODIUM 139 mmol/L (136-145); TOT PROT 8.4 g/dl (6.4-8.2)
--- NOTE | 2017-12-15 19:14 | PDOC ---
History of Present Illness - General Chief Complaint: Wound Stated Complaint: RT FOOT WOUND Time Seen by Provider: 12/15/17 17:19 History Source: Patient Exam Limitations: Other (Pt poor historian, answers most questions appropriately , but does not know any of his meds and limited history.) - History of Present Illness Initial Comments: Pt is 82 yo M, with PMH of HTN, HLD, DM, CKD, presents with pain and redness in b/l feet. The pt states he has "difficulty standing and weakness in my legs," for about 1 week. He states he had corns debrided on b/l feet Thursday, 12/05 at his breaker oiler office (Dr. Clement). Since then, he has had difficulty standing on his feet due to pain. He also fell out of bed last Thursday and was not able to stand up on his own; he required assistance of the fire department to be able to stand up. He states once he is back on his feet, he is able to ambulate around his home. He went back to Dr. Clement 2 days ago due to the increased pain and swelling in his feet, and was started on PO antibiotics, but he does not recall what he was given. He says the pain has not reduced with the abx, and he has been urinating more frequently since starting the abx. He was admitted to [facility] in January 2017 for medial thigh/perineal I&D (grew MRSA at that time). The pt also states he has had productive cough of yellow sputum x1 month. He denies headache, syncope, chest pain, hemoptysis, SOB, abdominal pain, diarrhea/ constipation. He denies recent travel or prolonged bedrest. He does not smoke cigarettes or use alcohol consistently. 12/15/17 22:30 Past History - Travel Traveled outside of the country in the last 30 days: No Close contact w/someone who was outside of country & ill: No - Past Medical History Allergies/Adverse Reactions: Allergies Allergy/AdvReac Type Severity Reaction Status Date / Time No Known Allergies Allergy Verified 12/15/17 17:16 Home Medications: Ambulatory Orders Aspirin [Aspirin EC] 81 mg PO DAILY 06/20/14 Simvastatin [Zocor -] 40 mg PO DAILY #14 tablet 06/22/14 Metoprolol Succinate [Toprol Xl] 100 mg PO DAILY 11/08/17 Terazosin HCl 2 mg PO DAILY 01/14/17 Amlodipine Besylate [Norvasc -] 5 mg PO DAILY #15 tablet 01/16/17 Cardiac Disorders: Yes (CAD) COPD: No Diabetes: Yes Dialysis: No Disorders: Yes (CKD, no dialysis) HTN: Yes Hypercholesterolemia: Yes Kidney Stones: No - Immunization History Immunization Up to Date: Yes - Suicide/Smoking/Psychosocial Hx Smoking History: Former smoker Have you smoked in the past 12 months: No If you are a former smoker, when did you quit?: 25 yrs ago Information on smoking cessation initiated: No Hx Alcohol Use: No Substance Use Type: Alcohol Review of Systems - Review of Systems Able to Perform ROS?: Yes Is the patient limited Citizen [place] proficient: No Constitutional: Yes: Weakness (weakness in lower legs, "trouble standing up from sitting" since corns debrided), Weight Stable. No: Chills, Diaphoresis, Fever, Loss of Appetite HEENTM: No: Blurred Vision, Recent change in vision, Double Vision, Nose Congestion, Hearing Loss, Throat Swelling, Difficulty Swallowing Respiratory: Yes: Productive cough. No: Cough, Orthopnea, Shortness of Breath, Wheezing, Hemoptysis Cardiac (ROS): No: Chest Pain, Edema, Irregular Heart Rate, Lightheadedness, Palpitations, Syncope, Chest Tightness ABD/GI: No: Abdominal Distended, Constipated, Diarrhea, Nausea, Poor Appetite, Poor Fluid Intake, Vomiting : No: Burning, Dysuria, Frequency, Hematuria, Pain, Urgency Musculoskeletal: Yes: Muscle Weakness (b/l legs). No: Back Pain, Joint Pain Integumentary: Yes: Change in Color (Redness in R lower leg and R foot), Erythema. No: Bruising, Lumps, Rash Neurological: Yes: Tingling (tingling sensation in b/l lower legs ), Weakness. No: Headache, Unsteady Gait, Ataxia, Dizziness Psychiatric: No: Sleep Pattern Change, Change in Appetite Endocrine: No: Increased Urine, Change in Weight Hematologic/Lymphatic: No: Anemia, Blood Clots, Easy Bleeding All Other Systems: Reviewed and Negative *Physical Exam - Vital Signs Last Vital Signs Temp Pulse Resp BP Pulse Ox 99.0 F 84 18 140/62 96 12/15/17 17:17 12/15/17 17:17 12/15/17 17:17 12/15/17 17:17 12/15/17 17:17 - Physical Exam General Appearance: Yes: Nourished, Appropriately Dressed, Obese. No: Apparent Distress (able to lie comfortably and answer questions. denying pain medications.) HEENT: positive: EOMI, SIL, Normal ENT Inspection, Normal Voice, Symmetrical, Pharynx Normal, Hearing Grossly Normal. negative: Scleral Icterus (R), Scleral Icterus (L), Pharyngeal Erythema, Tonsillar Exudate, Rhinorrhea Neck: positive: Trachea midline, Normal Thyroid, Supple. negative: Tender, Rigid, Carotid bruit, Lymphadenopathy (R), Lymphadenopathy (L) Respiratory/Chest: positive: Decreased Breath Sounds, Rhonchi (coarse breath sounds anterior rdz b/l). negative: Chest Tender, Lungs Clear, Normal Breath Sounds, Respiratory Distress, Accessory Muscle Use, Rapid RR, Stridor, Wheezing Cardiovascular: positive: Regular Rhythm, Regular Rate, S1, S2. negative: Edema , JVD, Murmur Vascular Pulses: Carotid (R): 4+, Carotid (L): 4+ Gastrointestinal/Abdominal: positive: Normal Bowel Sounds, Soft, Protuberent, Hernia (abdominal hernia, easily compressible). negative: Tender, Flat, Organomegaly, Pulsatile Mass, Guarding, Rebound Rectal Exam: positive: deferred Lymphatic: negative: Adenopathy, Tenderness Musculoskeletal: positive: Normal Inspection. negative: CVA Tenderness Extremity: positive: Normal Capillary Refill, Normal Range of Motion, Pelvis Stable, Pedal Edema, Swelling (edema (non-pitting) R lower leg and foot), Erythema (streaking erythema of R lower leg and foot (up to mid-chandler), mild erythema over dorsal left foot). negative: Normal Inspection, Tender, Delayed Capillary Refill, Calf Tenderness Integumentary: positive: Dry, Warm (warmth of R lower leg and foot), Erythema ( stated as above). negative: Normal Color, Jaundice, Mottled, Cold, Petechiae, Rash, Ecchymosis Neurologic: positive: regional forester II-XII NML intact, Fully Oriented, Alert, Normal Mood/ Affect, Normal Response, Motor Strength 5/5 (pt has decreased flexion and extension of R ankle due to pain only. no weakness noted.). negative: EOM Palsy , Facial Droop, Numbness, Sensory Deficit ED Treatment Course - LABORATORY CBC & Chemistry Diagram: 12/16/17 06:30 12/16/17 06:30 - ADDITIONAL ORDERS Additional order review: Laboratory Results 12/15/17 12/15/17 12/15/17 17:47 17:47 17:47 PT with INR INR PTT (Actin FS) VBG pH 7.36 POC VBG pCO2 41.8 POC VBG pO2 46.7 Mixed VBG HCO3 23.2 Sodium 139 Potassium 4.3 Chloride 107 Carbon Dioxide 22 Anion Gap 10 BUN 46 H Creatinine 2.1 H Creat Clearance w eGFR 30.39 Random Glucose 124 H Lactic Acid 1.4 Calcium 9.5 Total Bilirubin 0.5 AST 17 ALT 36 Alkaline Phosphatase 81 Total Protein 8.4 H Albumin 3.6 12/15/17 17:47 PT with INR 13.30 H INR 1.13 H PTT (Actin FS) 30.9 VBG pH POC VBG pCO2 POC VBG pO2 Mixed VBG HCO3 Sodium Potassium Chloride Carbon Dioxide Anion Gap BUN Creatinine Creat Clearance w eGFR Random Glucose Lactic Acid Calcium Total Bilirubin AST ALT Alkaline Phosphatase Total Protein Albumin 12/15/17 17:47 RBC 4.86 MCV 89.8 MCHC 32.4 RDW 14.5 MPV 7.7 D Neutrophils % 69.0 Lymphocytes % 15.6 D Monocytes % 13.0 H Eosinophils % 1.5 Basophils % 0.9 - RADIOLOGY Radiology Studies Ordered: Category Date Time Status CHEST PA & LAT [RAD] Stat Radiology 12/15/17 18:30 Ordered Medical Decision Making - Medical Decision Making (entered later) Pt seen at bedside, also seen by Dr. Goodwin. Pt presents with pain in b/l feet, with "difficulty standing and weakness in my legs". He states he had corns debrided on b/l feet Thursday, 12/05 at his breaker oiler office (Dr. Clement). Since then, he has had difficulty standing on his feet due to pain. He also fell out of bed last Thursday and was not able to stand up on his own. PE showed intact neuro exam, but erythema, warmth, and edema of R foot, and mild tenderness and warmth over dorsum of L foot. Working up for sepsis vs localized cellulitis. Pt also complains of productive cough over past month, with coarse breath sounds anteriorly b/l. Ordered basic labs, lactic, coags, ECG, chest x-ray, UA and culture. 12/15/17 19:14 (entered later) CBC: WNL, no increased WBC CMP: BUN/Cr 46/2.1 (baseline Cr 1.9). Lactic acid 1.4 ECG unchanged from prior (read as accelerated junctional rhythm/1st degree block ). Chest x-ray shows poor inspiration, appears similar to prior. Awaiting official read. Began 1.5 g IV Vanc and 2.25 g IV Zosyn (provided smaller dose due to creatinine clearance/CKD) for cellulitis. Pt has grown MRSA in the past during last abscess admission, covering broadly. Spoke with admitting team who has come to see the pt. Pt resting comfortably. Denied any pain medication. Awaiting inpatient bed (requested isolation due to prior MRSA). 12/15/17 22:30 *DC/Admit/Observation/Transfer Diagnosis at time of Disposition: Renal insufficiency Cellulitis Qualifiers: Site of cellulitis: extremity Site of cellulitis of extremity: lower extremity Laterality: right Qualified Code(s): L03.115 - Cellulitis of right lower limb Hypertension Qualifiers: Hypertension type: unspecified Qualified Code(s): I10 - Essential (primary) hypertension - Discharge Dispostion Condition at time of disposition: Stable Decision to Admit order: Yes - Referrals - Patient Instructions - Post Discharge Activity
[2017-12-15] MEDS ORDERED: VANCOMYCIN 1,500 MG in DEXTROSE 5%-WATER - 250 ML IVPB ONE (19:28)
[2017-12-15] MEDS ORDERED: PIPERACILLIN/TAZOB 2.25 GM 2.25 GM in DEXTROSE 5%-WATER - 50 ML IVPB ONE (19:32)
[2017-12-15] MEDS ORDERED: VANCOMYCIN 1,500 MG in DEXTROSE 5%-WATER - 500 ML IVPB ONE (20:00)
[2017-12-15] MEDS ORDERED: PIPERACILLIN/TAZOB 2.25 GM 2.25 GM/50 ML BAG IVPB ONE (20:01)
--- NOTE | 2017-12-15 20:07 | PN ---
Teaching Attending Note Name of Resident: Celia Ramos ATTENDING PHYSICIAN STATEMENT I saw and evaluated the patient. I reviewed the resident's note and discussed the case with the resident. I agree with the resident's findings and plan as documented. SUBJECTIVE: Patient is an 82 year old man with history of HTN, HLD, NIDDM, and CAD who presents with pain in both feet, with "difficulty standing and weakness in my legs". He states he had corns debrided on both feet on Thursday12/05/17 at his Assistant Spa Director's office (Dr. Clement). Since then, he has had difficulty standing on his feet due to pain. He also fell out of bed last Thursday and was not able to stand up on his own. He also complains of productive cough over past month. PE showed intact neuro exam, but Working up for sepsis vs localized cellulitis. with coarse breath sounds anteriorly b/l. OBJECTIVE: Alert Vital Signs Period Temp Pulse Resp BP Sys/Xiao Pulse Ox Last 24 Hr 99.0 F 84 18 140/62 96 HEENT: No Jaundice, eye redness or discharge, PERRLA, EOMI. Normocephalic, atraumatic. External ears are normal and hearing is grossly intact. No nasal discharge. Neck: Supple, nontender. No palpable adenopathy or thyromegaly. No JVD Chest: Good effort. Clear to auscultation and percussion. Heart: Regular. No S3, rub or murmur Abdomen: Not distended, soft, nontender and no HSM. No rebound or guarding. Normoactive bowel sounds. Ext: Reduced pulse in right foot. Reduced ROM in ankles. Tenderness, erythema, warmth, and edema of R foot, and mild tenderness and warmth over dorsum of L foot. Skin: Warm and dry. No petechiae, rash or ecchymosis. Neuro: Alert. Oriented x3. CN 2-12 grossly intact. Sensation grossly intact in all four extremities and DTR are symmetric. Current Medications Generic Name Dose Route Start Last Admin Trade Name Freq PRN Reason Stop Dose Admin Vancomycin HCl 1,500 mg/ 500 mls @ 250 mls/hr 12/15/17 20:00 12/15/17 20:26 Dextrose IVPB 12/15/17 21:59 250 mls/hr ONCE ONE Administration Protocol Home Medications Medication Instructions Recorded Aspirin [Aspirin EC] 81 mg PO DAILY 06/20/14 Simvastatin [Zocor -] 40 mg PO DAILY #14 tablet 06/22/14 Metoprolol Succinate [Toprol Xl] 100 mg PO DAILY 01/14/17 Terazosin HCl 2 mg PO DAILY 01/14/17 Amlodipine Besylate [Norvasc -] 5 mg PO DAILY #15 tablet 01/16/17 Clindamycin [Cleocin -] 300 mg PO TID #15 capsule 01/16/17 Lactobacillus Acidophilus [Bacid -] 1 tab PO DAILY #7 tab 01/16/17 Abnormal Lab Results 12/15/17 12/15/17 12/15/17 17:47 17:47 17:47 Monocytes % 13.0 H PT with INR 13.30 H INR 1.13 H BUN 46 H Creatinine 2.1 H Random Glucose 124 H Total Protein 8.4 H ASSESSMENT AND PLAN: 1. Leg Cellulitis - Treat with IV vancomycin and zosyn - adjust doses for GFR. Get Xrays of feet and arterial duplex scan. Get ECHO in view of chronic cough and cardiomegaly on CXR. 2. DM - For now, we will hold the home diabetes drugs and implement sliding scale insulin regimen. Provide comprehensive diabetes care with patient teaching and counseling about the importance of euglycemia, eye care and foot care. Add an ARB (Losartan 100 mg qd) to antihypertensive regimen. 3. NASRIN - Has risk factors for CKD. Encourage liberal fluid intake to correct dehydration. Get kidney sonogram, Avoid nephrotoxic agents such as NSAIDS, aminoglycosides, contrast dyes and certain Alternative medicine products. 4. DVT prophylaxis - Heparin 5000u sq tid. 5. Advance directives - Full code
[2017-12-15 20:24] LABS: URINE APPEARANCE CLEAR; URINE BILIRUBIN NEGATIVE (<2.0 mg/dL); URINE COLOR LTYELLOW; URINE GLUCOSE (UA) NEGATIVE (NEGATIVE); URINE KETONE NEGATIVE (NEGATIVE); URINE LEUK ESTERASE NEGATIVE (NEGATIVE); URINE NITRITE NEGATIVE (NEGATIVE); URINE PROTEIN NEGATIVE (NEGATIVE); URINE UROBILINOGEN NEGATIVE mg/dL (0.2-1.0)
[2017-12-15] MEDS ORDERED: VANCOMYCIN 1,500 MG in DEXTROSE 5%-WATER - 250 ML IVPB SCH (23:15)
--- NOTE | 2017-12-15 23:23 | HP ---
CHIEF COMPLAINT: B/l foot pain and inability to ambulate PCP: Dr. Regan Clement (manager of hospital) HISTORY OF PRESENT ILLNESS: 82M w/ pmhx of CAD, DM, CKD, HLD, HTN presented to the ED w/ complaints of b/l foot pain and an inability to walk. Pt states that in early November, he went to his manager of hospital to have his "corns removed" on both feet by a different doctor than his own manager of hospital. Ever since then, he's had worsening b/l foot pain. He also complains of bilateral leg weakness that started around the same time the foot pain started causing his inability to walk. He denies fever/chills , nausea/vomiting, headaches/dizziness, abdominal pain, urinary/bowel symptoms, blood in urine or stool. He reports that he used to take Metformin, but does not anymore as his PCP told him to discontinue taking it. Of note, he had a hx of 2 groin abscesses on 01/2017, +MRSA. 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[employer] Family History: Mother: [place], DM Sister: DM Allergies No Known Allergies Allergy (Verified 12/15/17 17:16) HOME MEDICATIONS: Home Medications Medication Instructions Recorded Aspirin [Aspirin EC] 81 mg PO DAILY 06/20/14 Simvastatin [Zocor -] 40 mg PO DAILY #14 tablet 06/22/14 Metoprolol Succinate [Toprol Xl] 100 mg PO DAILY 01/14/17 Terazosin HCl 2 mg PO DAILY 01/14/17 Amlodipine Besylate [Norvasc -] 5 mg PO DAILY #15 tablet 01/16/17 REVIEW OF SYSTEMS CONSTITUTIONAL: generalized weakness Absent: fever, chills, diaphoresis, malaise, loss of appetite HEENT: Absent: rhinorrhea, nasal congestion, eye pain, visual changes CARDIOVASCULAR: Absent: chest pain, syncope, palpitations, irregular heart rate, peripheral edema RESPIRATORY: Absent: cough, shortness of breath,wheezing GASTROINTESTINAL: Absent: abdominal pain, abdominal distension, nausea, vomiting, diarrhea, constipation GENITOURINARY: Absent: dysuria, frequency, urgency, hesitancy, hematuria MUSCULOSKELETAL: b/l leg weakness, swelling in b/l feet Absent: myalgia, arthralgia, joint swelling, back pain, neck pain SKIN: Absent: rash, itching, pallor HEMATOLOGIC/IMMUNOLOGIC: Absent: easy bleeding, easy bruising, lymphadenopathy, frequent infections ENDOCRINE: Absent: unexplained weight gain, heat intolerance, cold intolerance NEUROLOGIC: Absent: headache, focal weakness or paresthesias, dizziness, seizure, bladder or bowel incontinence PSYCHIATRIC: Absent: anxiety, depression, suicidal or homicidal ideation, hallucinations. PHYSICAL EXAMINATION Vital Signs - 24 hr 12/15/17 12/15/17 17:17 22:44 Temperature 99.0 F 98.8 F Pulse Rate 84 Pulse Rate [ 69 Apical] Respiratory 18 16 Rate Blood Pressure 140/62 Blood Pressure 149/55 L [Left Arm] O2 Sat by Pulse 96 98 Oximetry (%) GENERAL: AAOx3. NAD. Resting comfortably. HEENT: AT/NC. EOMI. DEBORAH. Dry mucus membranes. Missing teeth. NECK: Supple, no LAD/JVD. No tenderness. LUNGS: CTA B/L. No w/r/r noted. Symmetric chest rise. No accessory muscle use. HEART: RRR. Normal S1, S2. No murmurs noted. ABDOMEN: Obese. Soft, NT/ND. +BS in all 4 Q's. No masses or bruits noted. MUSCULOSKELETAL: 5/5 muscle strength in b/l u/l extremities. No CVA tenderness. EXTREMITIES: B/l foot swelling, R > L, but no pitting edema. Diffuse erythema on dorsum of R foot. 0.5 cm black scab on lateral aspect of R 2nd toe. 1 cm circular callous on lateral aspect of distal 5th metatarsal, red, tender but non -bloody. 5x5cm area of erythema on dorsum of L foot, w/ tenderness. 2+ dorsalis pedal pulse on R foot. 1+ dorsalis pedal pulse on L foot, barely palpable. NEUROLOGICAL: Normal speech. CN II-XII intact. Gait not observed. Normal finger -to-nose testing. B/l sensation intact. PSYCHIATRIC: Cooperative. Good eye contact. Appropriate mood and affect. SKIN: Warm, dry, normal turgor, normal capillary refill. Laboratory Results - last 24 hr 12/15/17 12/15/17 12/15/17 17:47 17:47 17:47 WBC 9.4 RBC 4.86 Hgb 14.1 Hct 43.7 MCV 89.8 MCH 29.1 MCHC 32.4 RDW 14.5 Plt Count 336 D MPV 7.7 D Absolute Neuts (auto) 6.5 Neutrophils % 69.0 Lymphocytes % 15.6 D Monocytes % 13.0 H Eosinophils % 1.5 Basophils % 0.9 Nucleated RBC % 0 PT with INR 13.30 H INR 1.13 H PTT (Actin FS) 30.9 VBG pH 7.36 POC VBG pCO2 41.8 POC VBG pO2 46.7 Mixed VBG HCO3 23.2 Sodium Potassium Chloride Carbon Dioxide Anion Gap BUN Creatinine Creat Clearance w eGFR Random Glucose Lactic Acid Calcium Total Bilirubin AST ALT Alkaline Phosphatase Troponin I Total Protein Albumin Urine Color Urine Appearance Urine pH Ur Specific [place] Urine Protein Urine Glucose (UA) Urine Ketones Urine Blood Urine Nitrite Urine Bilirubin Urine Urobilinogen Ur Leukocyte Esterase 12/15/17 12/15/17 12/15/17 17:47 17:47 20:01 WBC RBC Hgb Hct MCV MCH MCHC RDW Plt Count MPV Absolute Neuts (auto) Neutrophils % Lymphocytes % Monocytes % Eosinophils % Basophils % Nucleated RBC % PT with INR INR PTT (Actin FS) VBG pH POC VBG pCO2 POC VBG pO2 Mixed VBG HCO3 Sodium 139 Potassium 4.3 Chloride 107 Carbon Dioxide 22 Anion Gap 10 BUN 46 H Creatinine 2.1 H Creat Clearance w eGFR 30.39 Random Glucose 124 H Lactic Acid 1.4 Calcium 9.5 Total Bilirubin 0.5 AST 17 ALT 36 Alkaline Phosphatase 81 Troponin I < 0.02 Total Protein 8.4 H Albumin 3.6 Urine Color Ltyellow Urine Appearance Clear Urine pH 5.0 Ur Specific [place] 1.016 Urine Protein Negative Urine Glucose (UA) Negative Urine Ketones Negative Urine Blood Negative Urine Nitrite Negative Urine Bilirubin Negative Urine Urobilinogen Negative Ur Leukocyte Esterase Negative ASSESSMENT/PLAN: 82M w/ pmhx of CAD, DM, CKD, HTN, HLD presented to the ED w/ bilateral foot pain admitted for cellulitis w/ failed outpatient treatment. #Bilateral foot pain 2/2 likely cellulitis, r/o osteo -Vanc 1,250mg IVPB QD -Zosyn 2.25 gm IVPB -x-ray of b/l feet to assess possible soft tissue infection or osteomyelitis -ID consult (Dr. Werner) #Bilateral leg weakness; Pt reports b/l leg weakness only when he begins to walk. He states he needs to sit after walking 1 block due to pain in his R leg, possible concern for PVD. -Arterial doppler of RLE ordered -PT consult #NASRIN; Cr 2.1; likely due to dehydration -NS @ 75cc -recheck BMP in AM -encourage PO hydration -Avoid nephrotoxic agents #DM; Pt reports he was previously on Metformin. -BGMs ACHS -ISS -Hgb A1c ordered #HTN; BP 140/62. -CXR showed cardiomegaly; echo ordered to assess heart function Resume home meds: -Metoprolol Succinate 100 mg PO QD -Norvasc 5 mg PO QD #HLD Resume home med: -Simvastatin 40 mg PO QD #CAD Resume home med: -Aspirin 81 mg PO QD #BPH Resume home med: -Terazosin 2 mg PO QD #DVT Ppx -Heparin 5000U SQ TID #FEN -NS @ 75cc -recheck BMP in AM -Diabetic/Sodium-controlled diet dispo -admit to med-surg Visit type - Emergency Visit Emergency Visit: Yes ED Registration Date: 12/15/17 Care time: The patient presented to the Emergency Department on the above date and was hospitalized for further evaluation of their emergent condition. - New Patient This patient is new to me today: Yes Date on this admission: 12/16/17 - Critical Care Critical Care patient: No
[2017-12-15] MEDS ORDERED: HEPARIN NA (PORCINE) 5,000 UNITS/ML 1ML VIAL ONE (23:28)
[2017-12-15] MEDS: HEPARIN NA (PORCINE) 5,000 UNITS/ML 1ML VIAL SQ SCH (23:34)
[2017-12-15] MEDS: SODIUM CHLORIDE 1,000 ML IV SCH (23:34)
[2017-12-16] MEDS ORDERED: PIPERACILLIN/TAZOB 2.25 GM 2.25 GM in DEXTROSE 5%-WATER - 50 ML IVPB SCH (03:00)
[2017-12-16] MEDS ORDERED: PIPERACILLIN/TAZOB 2.25 GM 2.25 GM/50 ML BAG IVPB ONE ×2 (03:46→16:33)
[2017-12-16] MEDS: PIPERACILLIN/TAZOB 2.25 GM 2.25 GM in DEXTROSE 5%-WATER - 50 ML IVPB SCH ×3 (03:55→20:00)
[2017-12-16] MEDS ORDERED: HEPARIN NA (PORCINE) 5,000 UNITS/ML 1ML VIAL ONE (06:03)
[2017-12-16] MEDS: HEPARIN NA (PORCINE) 5,000 UNITS/ML 1ML VIAL SQ SCH ×3 (06:10→21:25)
[2017-12-16 06:59] LABS: BASO % 0.7 % (0-2.0); EOS % 2.4 % (0-4.5); HEMATOCRIT 41.2 % (35.4-49); HEMOGLOBIN 13.3 GM/dL (11.7-16.9); LYMPH % 14.7 % (8-40); MCH 29.2 pg (25.7-33.7); MCHC 32.3 g/dl (32.0-35.9); MEAN CELL VOLUME 90.1 fl (80-96); MEAN PLT VOLUME 7.6 fl (7.5-11.1); NEUT % 70.2 % (42.8-82.8); PLATELET COUNT 294 K/MM3 (134-434); RBC 4.57 M/mm3 (4.00-5.60); RDW 14.4 % (11.9-15.9); WHITE BLOOD COUNT 8.7 K/mm3 (4.0-10.0)
[2017-12-16 07:24] LABS: ALBUMIN 3.3 g/dl (3.4-5.0); ALK PHOS 69 U/L (45-117); ANION GAP 7 MMOL/L (8-16); BILIRUBIN,TOTAL 0.9 mg/dL (0.2-1); BLOOD UREA NITROGEN 42 mg/dL (7-18); CALCIUM 8.7 mg/dL (8.5-10.1); CHLORIDE 104 mmol/L (98-107); CO2 24 mmol/L (21-32); CREATININE 1.9 mg/dL (0.55-1.3); GLUCOSE,RANDOM 175 mg/dL (74-106); POTASSIUM 4.5 mmol/L (3.5-5.1); SGOT/AST 19 U/L (15-37); SGPT/ALT 30 U/L (13-61); SODIUM 135 mmol/L (136-145); TOT PROT 7.7 g/dl (6.4-8.2)
[2017-12-16] MEDS ORDERED: VANCOMYCIN 1,500 MG in DEXTROSE 5%-WATER - 250 ML IVPB ONE (08:30)
[2017-12-16] MEDS ORDERED: VANCOMYCIN 1,250 MG in DEXTROSE 5%-WATER - 250 ML IVPB ONE (08:30)
[2017-12-16] MEDS: ASPIRIN COATED 81 MG TABLET.EC PO SCH (08:59)
[2017-12-16] MEDS: TERAZOSIN HCL 2 MG CAPSULE PO SCH (08:59)
[2017-12-16] MEDS: amLODIPine BESYLATE 5 MG TABLET (FP) PO SCH (08:59)
--- NOTE | 2017-12-16 09:54 | EKG ---
Test Reason : Blood Pressure : / mmHG Vent. Rate : 079 BPM Atrial Rate : 080 BPM P-R Int : 000 ms QRS Dur : 088 ms QT Int : 372 ms P-R-T Axes : 000 051 092 degrees QTc Int : 426 ms POOR DATA QUALITY, INTERPRETATION MAY BE ADVERSELY AFFECTED ACCELERATED JUNCTIONAL RHYTHM ABNORMAL ECG WHEN COMPARED WITH ECG OF 12-JAN-2017 20:35, JUNCTIONAL RHYTHM HAS REPLACED SINUS RHYTHM Confirmed by JINA YOUNG, MARIA ([id number]) on 12/16/2017 9:54:32 AM Referred By: Confirmed By:MARIA MURO MD
--- NOTE | 2017-12-16 12:49 | PN ---
Teaching Attending Note Name of Resident: Mihai Carter ATTENDING PHYSICIAN STATEMENT I saw and evaluated the patient. I reviewed the resident's note and discussed the case with the resident. I agree with the resident's findings and plan as documented with exceptions below. SUBJECTIVE: Patient seen and examined. bilateral feet pain, more in the right foot, denies any fevers, chills, abdominal or urinary concerns. OBJECTIVE: Vital Signs Period Temp Pulse Resp BP Sys/Xiao Pulse Ox Last 24 Hr 98.8 F-99.7 F 69-97 16-20 140-160/55-71 96-98 Intake & Output 12/13/17 12/14/17 12/15/17 12/16/17 23:59 23:59 23:59 23:59 Weight 215 lb General: sitting in bed in no acute distress Chest: CTAB, no rales or wheezing Abdomen:soft, NT, ND Extremities: right foot generalized warmth, erythema,tenderness with minimal swelling, small area of eschar on lateral aspect right second toe, small circular pink area (?prior corn removal), laterl right foot distal 1/3rd, unable to palpate right DP/PT pulses, Left foot minimal erythema, warmth, swelling on dorsum palpable DP pulses Active Medications Amlodipine Besylate (Norvasc -) 5 mg PO DAILY [facility] Last Admin: 12/16/17 08:59 Dose: 5 mg Aspirin (Ecotrin -) 81 mg PO DAILY [facility] Last Admin: 12/16/17 08:59 Dose: 81 mg Atorvastatin Calcium (Lipitor -) 20 mg PO [facility] Heparin Sodium (Porcine) (Heparin -) 5,000 unit SQ TID [facility] Last Admin: 12/16/17 06:10 Dose: 5,000 unit Sodium Chloride (Normal Saline -) 1,000 mls @ 75 mls/hr IV ASDIR [facility] Last Admin: 12/15/17 23:34 Dose: 75 mls/hr Piperacillin Sod/Tazobactam (Sod 2.25 gm/ Dextrose) 50 mls @ 100 mls/hr IVPB ONCE ONE; Protocol Stop: 12/16/17 15:29 Metoprolol Succinate (Toprol Xl -) 100 mg PO DAILY [facility] Last Admin: 12/16/17 08:59 Dose: 100 mg Terazosin HCl (Hytrin -) 2 mg PO DAILY [facility] Last Admin: 12/16/17 08:59 Dose: 2 mg Laboratory Results - last 24 hr 12/15/17 12/15/17 12/15/17 17:47 17:47 17:47 WBC 9.4 RBC 4.86 Hgb 14.1 Hct 43.7 MCV 89.8 MCH 29.1 MCHC 32.4 RDW 14.5 Plt Count 336 D MPV 7.7 D Absolute Neuts (auto) 6.5 Neutrophils % 69.0 Lymphocytes % 15.6 D Monocytes % 13.0 H Eosinophils % 1.5 Basophils % 0.9 Nucleated RBC % 0 PT with INR 13.30 H INR 1.13 H PTT (Actin FS) 30.9 VBG pH 7.36 POC VBG pCO2 41.8 POC VBG pO2 46.7 Mixed VBG HCO3 23.2 Sodium Potassium Chloride Carbon Dioxide Anion Gap BUN Creatinine Creat Clearance w eGFR Random Glucose Hemoglobin A1c % Lactic Acid Calcium Total Bilirubin AST ALT Alkaline Phosphatase Troponin I Total Protein Albumin Urine Color Urine Appearance Urine pH Ur Specific [place] Urine Protein Urine Glucose (UA) Urine Ketones Urine Blood Urine Nitrite Urine Bilirubin Urine Urobilinogen Ur Leukocyte Esterase 12/15/17 12/15/17 12/15/17 17:47 17:47 20:01 WBC RBC Hgb Hct MCV MCH MCHC RDW Plt Count MPV Absolute Neuts (auto) Neutrophils % Lymphocytes % Monocytes % Eosinophils % Basophils % Nucleated RBC % PT with INR INR PTT (Actin FS) VBG pH POC VBG pCO2 POC VBG pO2 Mixed VBG HCO3 Sodium 139 Potassium 4.3 Chloride 107 Carbon Dioxide 22 Anion Gap 10 BUN 46 H Creatinine 2.1 H Creat Clearance w eGFR 30.39 Random Glucose 124 H Hemoglobin A1c % Lactic Acid 1.4 Calcium 9.5 Total Bilirubin 0.5 AST 17 ALT 36 Alkaline Phosphatase 81 Troponin I < 0.02 Total Protein 8.4 H Albumin 3.6 Urine Color Ltyellow Urine Appearance Clear Urine pH 5.0 Ur Specific [place] 1.016 Urine Protein Negative Urine Glucose (UA) Negative Urine Ketones Negative Urine Blood Negative Urine Nitrite Negative Urine Bilirubin Negative Urine Urobilinogen Negative Ur Leukocyte Esterase Negative 12/16/17 12/16/17 12/16/17 06:30 06:30 06:30 WBC 8.7 RBC 4.57 Hgb 13.3 Hct 41.2 MCV 90.1 MCH 29.2 MCHC 32.3 RDW 14.4 Plt Count 294 MPV 7.6 Absolute Neuts (auto) 6.1 Neutrophils % 70.2 Lymphocytes % 14.7 Monocytes % 12.0 H Eosinophils % 2.4 Basophils % 0.7 Nucleated RBC % 0 PT with INR INR PTT (Actin FS) VBG pH POC VBG pCO2 POC VBG pO2 Mixed VBG HCO3 Sodium 135 L Potassium 4.5 Chloride 104 Carbon Dioxide 24 Anion Gap 7 L BUN 42 H Creatinine 1.9 H Creat Clearance w eGFR 34.11 Random Glucose 175 H Hemoglobin A1c % 7.3 H Lactic Acid Calcium 8.7 Total Bilirubin 0.9 AST 19 ALT 30 Alkaline Phosphatase 69 Troponin I Total Protein 7.7 Albumin 3.3 L Urine Color Urine Appearance Urine pH Ur Specific [place] Urine Protein Urine Glucose (UA) Urine Ketones Urine Blood Urine Nitrite Urine Bilirubin Urine Urobilinogen Ur Leukocyte Esterase ASSESSMENT AND PLAN: 82 yom with PMHx of CAD/anginal pectoris, prior systolic HF, CKD stage II-III ( baseline cr around 2), HTN, NIDDM, admitted with bilateral feet pain with cellulitis in the setting of recent corn removal -Bilateral feet cellulitis, in the setting of recent corn removal -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 ID input. Blood cx. Podiatry Dr. Cleveland. Arterial duplex noted, vascular surgery Dr. Ortiz. Continue home terazocin/metoprolol/amlodipine/ASA DVTPPX with heparin Dispo pending clinical improvement. Plan discussed with patient in detail, all questions answered.
[2017-12-16] MEDS ORDERED: PIPERACILLIN/TAZOB 2.25 GM 2.25 GM in DEXTROSE 5%-WATER - 50 ML IVPB ONE (15:00)
--- NOTE | 2017-12-16 15:50 | CON.ID ---
Consult Consult Specialty:: infectious diseases Referred by:: Reason for Consultation:: cellulitits of the legs - History of Present Illness Chief Complaint: pain and redness of the leg History of Present Illness: 82M w/ pmhx of CAD, DM, CKD, HLD, HTN presented to the ED w/ complaints of b/l foot pain and an inability to walk. Pt states that in early November, he went to his dba developer to have his "corns removed" on both feet by a different doctor than his own dba developer. Ever since then, he's had worsening b/l foot pain. He also complains of bilateral leg weakness that started around the same time the foot pain started causing his inability to walk. He denies fever/chills , currently patient mentions that the pain is pretty severe patient has received a dose of vanco and zosyn looks comfortable no other issues - History Source History Provided By: Patient Limitations to Obtaining History: Language Barrier - Past Medical History Cardio/Vascular: Yes: CAD, CHF, HTN, Hyperlipdemia Endocrine: Yes: Diabetes Mellitus (Borderline) - Past Surgical History Past Surgical History: Yes: Cataract Removal, Joint Replacement (Right knee surgery) - Alcohol/Substance Use Hx Alcohol Use: No - Smoking History Smoking history: Former smoker Have you smoked in the past 12 months: No If you are a former smoker, when did you quit?: 25 yrs ago Home Medications - Allergies Allergies/Adverse Reactions: Allergies Allergy/AdvReac Type Severity Reaction Status Date / Time No Known Allergies Allergy Verified 12/15/17 17:16 - Home Medications Home Medications: Ambulatory Orders Aspirin [Aspirin EC] 81 mg PO DAILY 06/20/14 Simvastatin [Zocor -] 40 mg PO DAILY #14 tablet 06/22/14 Metoprolol Succinate [Toprol Xl] 100 mg PO DAILY 01/14/17 Terazosin HCl 2 mg PO DAILY 01/14/17 Amlodipine Besylate [Norvasc -] 5 mg PO DAILY #15 tablet 01/16/17 Losartan/Hydrochlorothiazide [Losartan-Hctz 50-12.5 mg Tab] 50 mg PO DAILY 12/16 Family Disease History - Family Disease History Family Disease History: Heart Disease: Mother (ASHD & [place]) Review of Systems - Review of Systems Constitutional: reports: No Symptoms Eyes: reports: No Symptoms HENT: reports: No Symptoms Neck: reports: No Symptoms Cardiovascular: reports: No Symptoms Respiratory: reports: No Symptoms Gastrointestinal: reports: No Symptoms Integumentary: reports: Change in Color, Erythema Neurological: reports: No Symptoms Endocrine: reports: No Symptoms Hematology/Lymphatic: reports: No Symptoms Psychiatric: reports: No Symptoms Physical Exam Vital Signs: Vital Signs Temperature 99.3 F 12/16/17 09:17 Pulse Rate 85 12/16/17 09:17 Respiratory Rate 16 12/16/17 09:17 Blood Pressure 156/71 12/16/17 09:17 O2 Sat by Pulse Oximetry (%) 98 12/16/17 06:43 Constitutional: Yes: Well Nourished, Calm, Mild Distress Neck: Yes: Supple Cardiovascular: Yes: Regular Rate and Rhythm Respiratory: Yes: Regular, CTA Bilaterally Gastrointestinal: Yes: Normal Bowel Sounds, Soft Musculoskeletal: Yes: WNL Extremities: Yes: Erythema, Other Integumentary: Yes: Erythema, Other Neurological: Yes: Alert, Oriented Psychiatric: Yes: Alert, Oriented Labs: CBC, BMP 12/16/17 06:30 12/16/17 06:30 Assessment/Plan patient with rt foot pain b/l cellulitits of the leg erythema htn dm plan will stop vanco continue zosyn podiatry and vascular consult elevation of legs rest as per the team
--- NOTE | 2017-12-16 16:38 | ECHO ---
Version: 1 Name: JENNY MAJANO Exam: Adult Echocardiogram Study Date: 12/16/2017, 1:15 PM Age: 82 Years MMode/2D Measurements & Calculations IVSd: 1.03 cm LVIDs: 3.7 cm LVIDd: 5.1 cm LVPWd: 0.94 cm Ao root diam: 2.40 cm LA dimension: 3.4 cm Doppler Measurements & Calculations MV E max jose: 57.4 cm/sec Med E/e': 10.5 MV A max jose: 99.0 cm/sec Med Peak E' Jose: 5.5 cm/sec MV E/A: 0.58 Lat E/e': 7.3 Lat Peak E' Jose: 7.9 cm/sec Ao max P.0 mmHg LV V1 mean: 62.9 cm/sec Ao mean P.8 mmHg LV V1 mean P.05 mmHg Ao V2 max: 212.3 cm/sec Procedure A two-dimensional transthoracic echocardiogram with color flow and Doppler was performed. The study was technically difficult with many images being suboptimal in quality. Left Ventricle The left ventricular size, thickness and function are normal. The left ventricle is not well visuali zed. The left ventricular ejection fraction is normal. Left Ventricular Filling pattern is normal for age. Re gional wall motion abnormalities cannot be excluded due to limited visualization. Right Ventricle The right ventricle is not well visualized. Atria Normal left and right atrial size and function. Mitral Valve The mitral valve is not well visualized. There is mild mitral valve thickening. There is no mitral v alve stenosis. There is mild mitral regurgitation. Tricuspid Valve The tricuspid valve is not well visualized. There was insufficient TR detected to calculate RV systo lic pressure. Aortic Valve The aortic valve is not well visualized. There is moderate aortic valve thickening. There is moderat e aortic sclerosis.;. Mild valvular aortic stenosis. No aortic regurgitation is present. Pulmonic Valve The pulmonic valve is not well visualized. Great Vessels The aortic root is normal size. Pericardium/Pleura There is no pericardial effusion. Summary Statements The study was technically difficult with many images being suboptimal in quality. The left ventricular size, thickness and function are normal The left ventricular ejection fraction is normal. Regional wall motion abnormalities cannot be excluded due to limited visualization. The left ventricle is not well visualized. There is mild mitral regurgitation. Left Ventricular Filling pattern is normal for age. There was insufficient TR detected to calculate RV systolic pressure. The aortic valve is not well visualized. There is moderate aortic valve thickening. There is moderate aortic sclerosis.; Mild valvular aortic stenosis. MD Gerry Simon 12/16/2017, 4:37 PM Ordering Physician: JAYJAY DIAMOND Referring Physician: JAYJAY DIAMOND Performed By: Michelle Lam
--- NOTE | 2017-12-16 18:20 | PN ---
Physical Exam: SUBJECTIVE: Patient seen and examined this AM. His only complaints are pain in his feet that keep him from walking. He states he was seen by his manager of engineering who started him on an antibiotic yesterday for a skin infection, but he took only two doses (appropriately) and came in because of the pain. OBJECTIVE: Vital Signs Period Temp Pulse Resp BP Sys/Xiao Pulse Ox Last 24 Hr 98.8 F-99.7 F 69-97 16-20 149-160/55-71 98-98 GENERAL: A&O, no acute distress HEAD: Normocephalic, atraumatic. EYES: PERRL, no scleral icterus EARS, NOSE, THROAT: oropharynx clear without exudates. Moist mucous membranes. NECK: supple without lymphadenopathy LUNGS: CTA b/l, no crackles or wheezes HEART: Regular rate and rhythm, normal S1 and S2 without murmur ABDOMEN: Soft, nontender to palpation, normoactive bowel sounds MUSCULOSKELETAL: No bony deformities or tenderness. EXTREMITIES: warm, well-perfused. No peripheral edema. NEUROLOGICAL: Cranial nerves II-XII grossly intact. Normal speech. b/l foot swelling, mild erythema noted on ventral aspect of left foot, warm and erythematous right foot, small eschar on distal 2nd digit PSYCHIATRIC: Cooperative. Good eye contact. Appropriate mood and affect. SKIN: Warm, dry, no rashes or lesions noted Laboratory Results - last 24 hr 12/15/17 12/15/17 12/15/17 17:47 17:47 17:47 WBC 9.4 RBC 4.86 Hgb 14.1 Hct 43.7 MCV 89.8 MCH 29.1 MCHC 32.4 RDW 14.5 Plt Count 336 D MPV 7.7 D Absolute Neuts (auto) 6.5 Neutrophils % 69.0 Lymphocytes % 15.6 D Monocytes % 13.0 H Eosinophils % 1.5 Basophils % 0.9 Nucleated RBC % 0 PT with INR 13.30 H INR 1.13 H PTT (Actin FS) 30.9 VBG pH 7.36 POC VBG pCO2 41.8 POC VBG pO2 46.7 Mixed VBG HCO3 23.2 Sodium Potassium Chloride Carbon Dioxide Anion Gap BUN Creatinine Creat Clearance w eGFR POC Glucometer Random Glucose Hemoglobin A1c % Lactic Acid Calcium Total Bilirubin AST ALT Alkaline Phosphatase Troponin I Total Protein Albumin Urine Color Urine Appearance Urine pH Ur Specific [place] Urine Protein Urine Glucose (UA) Urine Ketones Urine Blood Urine Nitrite Urine Bilirubin Urine Urobilinogen Ur Leukocyte Esterase 12/15/17 12/15/17 12/15/17 17:47 17:47 20:01 WBC RBC Hgb Hct MCV MCH MCHC RDW Plt Count MPV Absolute Neuts (auto) Neutrophils % Lymphocytes % Monocytes % Eosinophils % Basophils % Nucleated RBC % PT with INR INR PTT (Actin FS) VBG pH POC VBG pCO2 POC VBG pO2 Mixed VBG HCO3 Sodium 139 Potassium 4.3 Chloride 107 Carbon Dioxide 22 Anion Gap 10 BUN 46 H Creatinine 2.1 H Creat Clearance w eGFR 30.39 POC Glucometer Random Glucose 124 H Hemoglobin A1c % Lactic Acid 1.4 Calcium 9.5 Total Bilirubin 0.5 AST 17 ALT 36 Alkaline Phosphatase 81 Troponin I < 0.02 Total Protein 8.4 H Albumin 3.6 Urine Color Ltyellow Urine Appearance Clear Urine pH 5.0 Ur Specific [place] 1.016 Urine Protein Negative Urine Glucose (UA) Negative Urine Ketones Negative Urine Blood Negative Urine Nitrite Negative Urine Bilirubin Negative Urine Urobilinogen Negative Ur Leukocyte Esterase Negative 12/16/17 12/16/17 12/16/17 06:30 06:30 06:30 WBC 8.7 RBC 4.57 Hgb 13.3 Hct 41.2 MCV 90.1 MCH 29.2 MCHC 32.3 RDW 14.4 Plt Count 294 MPV 7.6 Absolute Neuts (auto) 6.1 Neutrophils % 70.2 Lymphocytes % 14.7 Monocytes % 12.0 H Eosinophils % 2.4 Basophils % 0.7 Nucleated RBC % 0 PT with INR INR PTT (Actin FS) VBG pH POC VBG pCO2 POC VBG pO2 Mixed VBG HCO3 Sodium 135 L Potassium 4.5 Chloride 104 Carbon Dioxide 24 Anion Gap 7 L BUN 42 H Creatinine 1.9 H Creat Clearance w eGFR 34.11 POC Glucometer Random Glucose 175 H Hemoglobin A1c % 7.3 H Lactic Acid Calcium 8.7 Total Bilirubin 0.9 AST 19 ALT 30 Alkaline Phosphatase 69 Troponin I Total Protein 7.7 Albumin 3.3 L Urine Color Urine Appearance Urine pH Ur Specific [place] Urine Protein Urine Glucose (UA) Urine Ketones Urine Blood Urine Nitrite Urine Bilirubin Urine Urobilinogen Ur Leukocyte Esterase 12/16/17 17:28 WBC RBC Hgb Hct MCV MCH MCHC RDW Plt Count MPV Absolute Neuts (auto) Neutrophils % Lymphocytes % Monocytes % Eosinophils % Basophils % Nucleated RBC % PT with INR INR PTT (Actin FS) VBG pH POC VBG pCO2 POC VBG pO2 Mixed VBG HCO3 Sodium Potassium Chloride Carbon Dioxide Anion Gap BUN Creatinine Creat Clearance w eGFR POC Glucometer [id number] Random Glucose Hemoglobin A1c % Lactic Acid Calcium Total Bilirubin AST ALT Alkaline Phosphatase Troponin I Total Protein Albumin Urine Color Urine Appearance Urine pH Ur Specific [place] Urine Protein Urine Glucose (UA) Urine Ketones Urine Blood Urine Nitrite Urine Bilirubin Urine Urobilinogen Ur Leukocyte Esterase Active Medications Generic Name Dose Route Start Last Admin Trade Name Tavonq PRN Reason Stop Dose Admin Amlodipine Besylate 5 mg 12/16/17 10:00 12/16/17 08:59 Norvasc - PO 5 mg DAILY [facility] Administration Aspirin 81 mg 12/16/17 10:00 12/16/17 08:59 Ecotrin - PO 81 mg DAILY [facility] Administration Atorvastatin Calcium 20 mg 12/16/17 22:00 Lipitor - PO HS [facility] Heparin Sodium (Porcine) 5,000 unit 12/15/17 23:15 12/16/17 15:23 Heparin - SQ 5,000 unit TID [facility] Administration Sodium Chloride 1,000 mls @ 75 mls/hr 12/15/17 23:00 12/15/17 23:34 Normal Saline - IV 75 mls/hr ASDIR [facility] Administration Piperacillin Sod/Tazobactam 50 mls @ 100 mls/hr 12/16/17 18:00 Sod 2.25 gm/ Dextrose IVPB Q8H-IV [facility] Protocol Metoprolol Succinate 100 mg 12/16/17 10:00 12/16/17 08:59 Toprol Xl - PO 100 mg DAILY [facility] Administration Terazosin HCl 2 mg 12/16/17 10:00 12/16/17 08:59 Hytrin - PO 2 mg DAILY [facility] Administration ASSESSMENT/PLAN: 82 M with PMH of CAD, DM, CKD, HLD, HTN admitted with complaints of b/l foot pain and an inability to walk. B/L Foot Cellulitis -Vanc/Zosyn -ID Consult placed, will await recommendations -Blood Cultures pending -Pt sees manager of engineering who does not come here, Podiatry consulted -Arterial duplex noted, Vascular Consult appreciated 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 -likely complication of group home diabetes -Avoid nephrotoxic drugs -Fluid resuscitation NIDDM -A1C 7.3 -BGMs ACHS -Insulin Sliding Scale HTN -continue home meds -Terazosin 2mg PO Daily -Norvasc 5 mg PO Daily -Toprol XL 100 mg PO Daily HLD -Lipitor 20 mg PO HS -ASA 81 DVT Prophylaxis -Heparin 5000 units SQ TID FEN -Fluids: NS @ 75 cc/hr -Electrolytes: No electrolyte abnormalities, BMP in AM -Nutrition: Diabetic Diet Disposition Med/Surg Visit type - Emergency Visit Emergency Visit: Yes ED Registration Date: 12/15/17 Care time: The patient presented to the Emergency Department on the above date and was hospitalized for further evaluation of their emergent condition. - New Patient This patient is new to me today: Yes Date on this admission: 12/16/17 - Critical Care Critical Care patient: No
[2017-12-16] MEDS ORDERED: ACETAMINOPHEN 325 MG TABLET (FP) ONE (18:22)
[2017-12-16] MEDS ORDERED: INSULIN (NOVOLOG) ASPART 100 UNITS/ML 10ML VIAL ONE (18:23)
--- NOTE | 2017-12-16 18:24 | CONSULT ---
Consult - text type - Consultation Consultation Note: Podiatry Consultation: 82 year old DM M presents to ED for significant pain to both feet R>L. Patient has had inability to walk over the past few weeks. 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 Afebrile, VSS PMHx: DM, HTN, HLP CKD, CAD, h/o MRSA Meds: noted ALL: NKMA MELVI: Pedal pulses non-palpable, TG wnl, CFT brisk to all toes. There is a hyperkeratotic lesion plantar ball of foot R foot with significant tenderness to palpation, no purulence, no fluctuance, no streaking cellulitis, no signs of active infection. NO gangrenous changes. R foot XR: no evidence of fx, osteomyelitis A. 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 Abx, ID consultation 2. Vascular consultation 3. Local wound care 4. Thank you for the courtesy of this consultation. Brandan Cleveland DPM
[2017-12-16] MEDS: ACETAMINOPHEN 325 MG TABLET (FP) PO PRN (18:28)
--- NOTE | 2017-12-16 18:36 | CONSULT ---
Consult Consult Specialty:: vascular surgery Reason for Consultation:: Right foot pain with cellulitis - History Source Limitations to Obtaining History: No Limitations - Past Medical History Cardio/Vascular: Yes: CAD, CHF, HTN, Hyperlipdemia Endocrine: Yes: Diabetes Mellitus (Borderline) - Past Surgical History Past Surgical History: Yes: Cataract Removal, Joint Replacement (Right knee surgery) - Alcohol/Substance Use Hx Alcohol Use: No - Smoking History Smoking history: Former smoker Have you smoked in the past 12 months: No If you are a former smoker, when did you quit?: 25 yrs ago Home Medications - Allergies Allergies/Adverse Reactions: Allergies Allergy/AdvReac Type Severity Reaction Status Date / Time No Known Allergies Allergy Verified 12/15/17 17:16 - Home Medications Home Medications: Ambulatory Orders Aspirin [Aspirin EC] 81 mg PO DAILY 06/20/14 Simvastatin [Zocor -] 40 mg PO DAILY #14 tablet 06/22/14 Metoprolol Succinate [Toprol Xl] 100 mg PO DAILY 01/14/17 Terazosin HCl 2 mg PO DAILY 01/14/17 Amlodipine Besylate [Norvasc -] 5 mg PO DAILY #15 tablet 01/16/17 Losartan/Hydrochlorothiazide [Losartan-Hctz 50-12.5 mg Tab] 50 mg PO DAILY 12/16 Family Disease History - Family Disease History Family Disease History: Heart Disease: Mother (ASHD & [place]) Review of Systems - Review of Systems Constitutional: reports: No Symptoms Eyes: reports: No Symptoms HENT: reports: No Symptoms Neck: reports: No Symptoms Cardiovascular: reports: No Symptoms Respiratory: reports: No Symptoms Gastrointestinal: reports: No Symptoms Genitourinary: reports: No Symptoms Musculoskeletal: reports: Joint Pain, Muscle Weakness Neurological: reports: No Symptoms Endocrine: reports: No Symptoms Hematology/Lymphatic: reports: No Symptoms Psychiatric: reports: No Symptoms Physical Exam Vital Signs: Vital Signs Temperature 99.3 F 12/16/17 09:17 Pulse Rate 85 12/16/17 09:17 Respiratory Rate 16 12/16/17 09:17 Blood Pressure 156/71 12/16/17 09:17 O2 Sat by Pulse Oximetry (%) 98 12/16/17 06:43 Constitutional: Yes: Well Nourished, No Distress, Calm Eyes: Yes: WNL, Conjunctiva Clear, EOM Intact HENT: Yes: WNL, Atraumatic, Normocephalic Neck: Yes: WNL, Supple, Trachea Midline Cardiovascular: Yes: WNL, Regular Rate and Rhythm Respiratory: Yes: WNL, Regular, CTA Bilaterally Gastrointestinal: Yes: WNL, Normal Bowel Sounds ...Rectal Exam: Yes: WNL Renal/: Yes: WNL Breast(s): Yes: WNL Musculoskeletal: Yes: WNL Extremities: Yes: Erythema Edema: No Edema: LLE: Trace, RLE: Trace Peripheral Pulses WNL: No (no palpable pulses . Dopplerable pulses. ) Integumentary: Yes: WNL Neurological: Yes: WNL, Alert, Oriented ...Motor Strength: WNL Psychiatric: Yes: WNL Labs: CBC, BMP 12/16/17 06:30 12/16/17 06:30 Imaging - Results Ultrasound: Report Reviewed (arterial duplex reviewed. Post tibial occlusion) Assessment/Plan Right foot pain, after recent callus removal. Both feet are warm with good cap refill. Local wound care for callus as per podiatry. IV antibiotics for cellulitis. No need for more vascular workup at this time. Will need workup if podiatry needs to do a procedure. Will follow Physical therapy Natalio Otriz DO
[2017-12-16] MEDS ORDERED: ATORVASTATIN CA 10 MG TABLET (FP) ONE (21:10)
[2017-12-16] MEDS: INSULIN SLIDING SCALE (NOVOLOG) 1 VIAL SQ SCH (21:25)
[2017-12-16] MEDS: ATORVASTATIN CA 20 MG TABLET (FP) PO SCH (21:25)
[2017-12-16] MEDS: SODIUM CHLORIDE 1,000 ML IV SCH (23:00)
[2017-12-17] MEDS ORDERED: PIPERACILLIN/TAZOB 2.25 GM 2.25 GM/50 ML BAG IVPB ONE (01:26)
[2017-12-17] MEDS: PIPERACILLIN/TAZOB 2.25 GM 2.25 GM in DEXTROSE 5%-WATER - 50 ML IVPB SCH ×3 (01:28→19:10)
[2017-12-17] MEDS: HEPARIN NA (PORCINE) 5,000 UNITS/ML 1ML VIAL SQ SCH ×3 (06:10→21:35)
[2017-12-17] MEDS: INSULIN SLIDING SCALE (NOVOLOG) 1 VIAL SQ SCH ×3 (06:10→18:20)
[2017-12-17 07:32] LABS: ANION GAP 9 MMOL/L (8-16); BLOOD UREA NITROGEN 36 mg/dL (7-18); CALCIUM 8.4 mg/dL (8.5-10.1); CHLORIDE 105 mmol/L (98-107); CO2 23 mmol/L (21-32); CREATININE 1.7 mg/dL (0.55-1.3); GLUCOSE,RANDOM 180 mg/dL (74-106); MAGNESIUM 2.1 mg/dL (1.8-2.4); PHOSPHOROUS 3.2 mg/dL (2.5-4.9); POTASSIUM 4.1 mmol/L (3.5-5.1); SODIUM 137 mmol/L (136-145)
[2017-12-17 07:34] LABS: HEMATOCRIT 41.4 % (35.4-49); HEMOGLOBIN 13.6 GM/dL (11.7-16.9); MCH 29.3 pg (25.7-33.7); MCHC 32.8 g/dl (32.0-35.9); MEAN CELL VOLUME 89.3 fl (80-96); MEAN PLT VOLUME 7.8 fl (7.5-11.1); PLATELET COUNT 290 K/MM3 (134-434); RBC 4.64 M/mm3 (4.00-5.60); RDW 14.7 % (11.9-15.9); WHITE BLOOD COUNT 10.7 K/mm3 (4.0-10.0)
--- NOTE | 2017-12-17 09:04 | PN ---
Teaching Attending Note Name of Resident: Mihai Carter ATTENDING PHYSICIAN STATEMENT I saw and evaluated the patient. I reviewed the resident's note and discussed the case with the resident. I agree with the resident's findings and plan as documented with exceptions below. SUBJECTIVE: Patient seen and examined. Feet pain improved, no new complaints. OBJECTIVE: Vital Signs Period Temp Pulse Resp BP Sys/Xiao Pulse Ox Last 24 Hr 99.3 F-101 F 74-102 16-18 130-156/63-105 97 Intake & Output 12/14/17 12/15/17 12/16/17 12/17/17 23:59 23:59 23:59 23:59 Intake Total 350 170 Balance 350 170 Weight 215 lb General: sitting in bed in no acute distress Extremities: right foot swelling/erythema/tenderness improved, unable to palpate right Dp pulses, Left DP pulse, unchanged eschar on right 2nd toe Active Medications Acetaminophen (Tylenol -) 650 mg PO Q6H PRN PRN Reason: FEVER Last Admin: 12/16/17 18:28 Dose: 650 mg Amlodipine Besylate (Norvasc -) 5 mg PO DAILY [facility] Last Admin: 12/16/17 08:59 Dose: 5 mg Aspirin (Ecotrin -) 81 mg PO DAILY [facility] Last Admin: 12/16/17 08:59 Dose: 81 mg Atorvastatin Calcium (Lipitor -) 20 mg PO HS [facility] Last Admin: 12/16/17 21:25 Dose: 20 mg Heparin Sodium (Porcine) (Heparin -) 5,000 unit SQ TID [facility] Last Admin: 12/17/17 06:10 Dose: 5,000 unit Sodium Chloride (Normal Saline -) 1,000 mls @ 75 mls/hr IV ASDIR [facility] Last Admin: 12/16/17 23:00 Dose: 75 mls/hr Piperacillin Sod/Tazobactam (Sod 2.25 gm/ Dextrose) 50 mls @ 100 mls/hr IVPB Q8H-IV [facility]; Protocol Last Admin: 12/17/17 01:28 Dose: 100 mls/hr Insulin Aspart (Novolog Vial Sliding Scale -) 1 vial SQ ACHS [facility]; Protocol Last Admin: 12/17/17 06:10 Dose: 2 units Metoprolol Succinate (Toprol Xl -) 100 mg PO DAILY [facility] Last Admin: 12/16/17 08:59 Dose: 100 mg Terazosin HCl (Hytrin -) 2 mg PO DAILY [facility] Last Admin: 12/16/17 08:59 Dose: 2 mg Laboratory Results - last 24 hr 12/16/17 12/16/17 12/17/17 17:28 21:00 06:08 WBC RBC Hgb Hct MCV MCH MCHC RDW Plt Count MPV Sodium Potassium Chloride Carbon Dioxide Anion Gap BUN Creatinine Creat Clearance w eGFR POC Glucometer [phone] 178 Random Glucose Calcium Phosphorus Magnesium 12/17/17 12/17/17 06:30 06:30 WBC 10.7 H RBC 4.64 Hgb 13.6 Hct 41.4 MCV 89.3 MCH 29.3 MCHC 32.8 RDW 14.7 Plt Count 290 MPV 7.8 Sodium 137 Potassium 4.1 Chloride 105 Carbon Dioxide 23 Anion Gap 9 BUN 36 H Creatinine 1.7 H Creat Clearance w eGFR 38.78 POC Glucometer Random Glucose 180 H Calcium 8.4 L Phosphorus 3.2 Magnesium 2.1 Microbiology 12/15/17 20:01 Urine - Urine Clean Catch Urine Culture - Final 12/15/17 17:47 Blood - Peripheral Venous Blood Culture - Preliminary NO GROWTH OBTAINED AFTER 24 HOURS, INCUBATION TO CONTINUE FOR 4 DAYS. 12/15/17 17:47 Blood - Peripheral Venous Blood Culture - Preliminary NO GROWTH OBTAINED AFTER 24 HOURS, INCUBATION TO CONTINUE FOR 4 DAYS. 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 Zosyn day 2, Vanco level noted. Discuss with ID for additional vanco dosing. Blood cx neg so far. CRP noted. Follow up ESR. ARterial duplex noted. Podiatry/vascular surgery input noted. Discussed with Dr. Cleveland, no imminent plans for intervention, pending MRI. Continue home terazocin/metoprolol/amlodipine/ASA Resume losartan/HCTZ based on renal function and BP. no inpatient beds available. Patient and family prefer transfer to [place] for further management. Case discussed with Clarissa Ames NP. DVTPPX with heparin Dispo inpatient level of care, transfer to [facility] for further management. Plan discussed with patient in detail, all questions answered.
[2017-12-17] MEDS: amLODIPine BESYLATE 5 MG TABLET (FP) PO SCH (09:54)
[2017-12-17] MEDS: TERAZOSIN HCL 2 MG CAPSULE PO SCH (09:54)
[2017-12-17] MEDS: ASPIRIN COATED 81 MG TABLET.EC PO SCH (09:54)
--- NOTE | 2017-12-17 11:46 | PN ---
Physical Exam: SUBJECTIVE: Patient seen and examined this AM. He Says that he is feeling better than yesterday but the pain is about the same. He endorses that once he is up and standing he can walk okay but he is unable to stand on his own. OBJECTIVE: Vital Signs Period Temp Pulse Resp BP Sys/Xiao Pulse Ox Last 24 Hr 99.4 F-101 F 74-102 18-20 130-145/63-105 97-98 GENERAL: A&O, no acute distress HEAD: Normocephalic, atraumatic. EYES: PERRL, no scleral icterus EARS, NOSE, THROAT: oropharynx clear without exudates. Moist mucous membranes. NECK: supple without lymphadenopathy LUNGS: CTA b/l, no crackles or wheezes HEART: Regular rate and rhythm, normal S1 and S2 without murmur ABDOMEN: Soft, nontender to palpation, normoactive bowel sounds MUSCULOSKELETAL: No bony deformities or tenderness. EXTREMITIES: warm, well-perfused. No peripheral edema. NEUROLOGICAL: Cranial nerves II-XII grossly intact. Normal speech. b/l foot swelling, mild erythema noted on ventral aspect of left foot, erythematous right foot improved from yesterday, small eschar on distal 2nd digit PSYCHIATRIC: Cooperative. Good eye contact. Appropriate mood and affect. SKIN: Warm, dry, no rashes or lesions noted Laboratory Results - last 24 hr 12/16/17 12/16/17 12/17/17 17:28 21:00 06:08 WBC RBC Hgb Hct MCV MCH MCHC RDW Plt Count MPV ESR Sodium Potassium Chloride Carbon Dioxide Anion Gap BUN Creatinine Creat Clearance w eGFR POC Glucometer 220.89300 177 178 Random Glucose Calcium Phosphorus Magnesium C-Reactive Protein Random Vancomycin 12/17/17 12/17/17 12/17/17 06:30 06:30 09:55 WBC 10.7 H RBC 4.64 Hgb 13.6 Hct 41.4 MCV 89.3 MCH 29.3 MCHC 32.8 RDW 14.7 Plt Count 290 MPV 7.8 ESR 73 H Sodium 137 Potassium 4.1 Chloride 105 Carbon Dioxide 23 Anion Gap 9 BUN 36 H Creatinine 1.7 H Creat Clearance w eGFR 38.78 POC Glucometer Random Glucose 180 H Calcium 8.4 L Phosphorus 3.2 Magnesium 2.1 C-Reactive Protein Random Vancomycin 12/17/17 12/17/17 09:57 09:57 WBC RBC Hgb Hct MCV MCH MCHC RDW Plt Count MPV ESR Sodium Potassium Chloride Carbon Dioxide Anion Gap BUN Creatinine Creat Clearance w eGFR POC Glucometer Random Glucose Calcium Phosphorus Magnesium C-Reactive Protein 11.8 H Random Vancomycin 11.5 L Active Medications Generic Name Dose Route Start Last Admin Trade Name Freq PRN Reason Stop Dose Admin Acetaminophen 650 mg 12/16/17 18:16 12/16/17 18:28 Tylenol - PO 650 mg Q6H PRN Administration FEVER Amlodipine Besylate 5 mg 12/16/17 10:00 12/17/17 09:54 Norvasc - PO 5 mg DAILY [facility] Administration Aspirin 81 mg 12/16/17 10:00 12/17/17 09:54 Ecotrin - PO 81 mg DAILY [facility] Administration Atorvastatin Calcium 20 mg 12/16/17 22:00 12/16/17 21:25 Lipitor - PO 20 mg HS [facility] Administration Heparin Sodium (Porcine) 5,000 unit 12/15/17 23:15 12/17/17 06:10 Heparin - SQ 5,000 unit TID [facility] Administration Sodium Chloride 1,000 mls @ 75 mls/hr 12/15/17 23:00 12/16/17 23:00 Normal Saline - IV 75 mls/hr ASDIR [facility] Administration Piperacillin Sod/Tazobactam 50 mls @ 100 mls/hr 12/16/17 18:00 12/17/17 09:54 Sod 2.25 gm/ Dextrose IVPB 100 mls/hr Q8H-IV [facility] Administration Protocol Insulin Aspart 1 vial 12/16/17 22:00 12/17/17 06:10 Novolog Vial Sliding Scale - SQ 2 units ACHS [facility] Administration Protocol Metoprolol Succinate 100 mg 12/16/17 10:00 12/17/17 09:54 Toprol Xl - PO 100 mg DAILY [facility] Administration Terazosin HCl 2 mg 12/16/17 10:00 12/17/17 09:54 Hytrin - PO 2 mg DAILY [facility] Administration ASSESSMENT/PLAN: 82 M with PMH of CAD, DM, CKD, HLD, HTN admitted with complaints of b/l foot pain and an inability to walk. B/L Foot Cellulitis -Vanc/Zosyn -Vanc trough noted, 11.5 -ID Consulted -Blood Cultures pending -Pt sees flumer who does not come here, Podiatry consulted -Arterial duplex noted, Vascular Consult appreciated -ESR 73, CRP 11.8 -MRI b/l LE pending 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 -likely complication of manager long term care diabetes -Avoid nephrotoxic drugs -BUN/Cr improved today NIDDM -A1C 7.3 -BGMs ACHS -Insulin Sliding Scale HTN -continue home meds -Terazosin 2mg PO Daily -Norvasc 5 mg PO Daily -Toprol XL 100 mg PO Daily HLD -Lipitor 20 mg PO HS -ASA 81 DVT Prophylaxis -Heparin 5000 units SQ TID FEN -Fluids: None -Electrolytes: No electrolyte abnormalities, BMP in AM -Nutrition: Diabetic Diet Disposition Med/Surg, transfer to [facility] as per family and Pt's wishes. Care will be continued by DATA MODELING SPECIALIST. Visit type - Emergency Visit Emergency Visit: Yes ED Registration Date: 12/15/17 Care time: The patient presented to the Emergency Department on the above date and was hospitalized for further evaluation of their emergent condition. - New Patient This patient is new to me today: No - Critical Care Critical Care patient: No
--- NOTE | 2017-12-17 12:49 | PN ---
Progress Note, Physician History of Present Illness: still with pain in the leg spiked low grade fever mri done of lower ext - Current Medication List Current Medications: Active Medications Acetaminophen (Tylenol -) 650 mg PO Q6H PRN PRN Reason: FEVER Last Admin: 12/16/17 18:28 Dose: 650 mg Amlodipine Besylate (Norvasc -) 5 mg PO DAILY [facility] Last Admin: 12/17/17 09:54 Dose: 5 mg Aspirin (Ecotrin -) 81 mg PO DAILY [facility] Last Admin: 12/17/17 09:54 Dose: 81 mg Atorvastatin Calcium (Lipitor -) 20 mg PO HS [facility] Last Admin: 12/16/17 21:25 Dose: 20 mg Heparin Sodium (Porcine) (Heparin -) 5,000 unit SQ TID [facility] Last Admin: 12/17/17 06:10 Dose: 5,000 unit Sodium Chloride (Normal Saline -) 1,000 mls @ 75 mls/hr IV ASDIR [facility] Last Admin: 12/16/17 23:00 Dose: 75 mls/hr Piperacillin Sod/Tazobactam (Sod 2.25 gm/ Dextrose) 50 mls @ 100 mls/hr IVPB Q8H-IV [facility]; Protocol Last Admin: 12/17/17 09:54 Dose: 100 mls/hr Insulin Aspart (Novolog Vial Sliding Scale -) 1 vial SQ ACHS [facility]; Protocol Last Admin: 12/17/17 06:10 Dose: 2 units Metoprolol Succinate (Toprol Xl -) 100 mg PO DAILY [facility] Last Admin: 12/17/17 09:54 Dose: 100 mg Terazosin HCl (Hytrin -) 2 mg PO DAILY [facility] Last Admin: 12/17/17 09:54 Dose: 2 mg - Objective Vital Signs: Vital Signs Temperature 99.4 F 12/17/17 09:35 Pulse Rate 80 12/17/17 09:35 Respiratory Rate 20 12/17/17 09:35 Blood Pressure 145/69 12/17/17 09:35 O2 Sat by Pulse Oximetry (%) 98 12/17/17 09:00 Constitutional: Yes: Calm, Mild Distress Cardiovascular: Yes: Regular Rate and Rhythm Respiratory: Yes: Regular, CTA Bilaterally Gastrointestinal: Yes: Normal Bowel Sounds, Soft Musculoskeletal: Yes: Other Extremities: Yes: Erythema (b/l lower legs) Neurological: Yes: Alert, Oriented Psychiatric: Yes: Alert, Oriented Labs: CBC, BMP 12/17/17 06:30 12/17/17 06:30 INR, PTT INR 1.13 (0.83-1.09) H 12/15/17 17:47 Assessment/Plan patient with rt foot pain b/l cellulitits of the leg erythema htn dm plan await mri result continue zosyn podiatry and vascular consult elevation of legs rest as per the team
--- NOTE | 2017-12-17 15:13 | PN ---
Progress Note (short form) - Note Progress Note: case discussed with Dr Mckeon, patient is a transfer from [facility] emergency department to [place]. Vital Signs Period Temp Pulse Resp BP Sys/Xiao Pulse Ox Last 24 Hr 98.6 F-100.4 F 80-102 17-20 130-156/61-69 97-98 CBC WBC 10.7 K/mm3 (4.0-10.0) H 12/17/17 06:30 RBC 4.64 M/mm3 (4.00-5.60) 12/17/17 06:30 Hgb 13.6 GM/dL (11.7-16.9) 12/17/17 06:30 Hct 41.4 % (35.4-49) 12/17/17 06:30 MCV 89.3 fl (80-96) 12/17/17 06:30 MCH 29.3 pg (25.7-33.7) 12/17/17 06:30 MCHC 32.8 g/dl (32.0-35.9) 12/17/17 06:30 RDW 14.7 % (11.9-15.9) 12/17/17 06:30 Plt Count 290 K/MM3 (134-434) 12/17/17 06:30 MPV 7.8 fl (7.5-11.1) 12/17/17 06:30 Absolute Neuts (auto) 6.1 K/mm3 (1.5-8.0) 12/16/17 06:30 Neutrophils % 70.2 % (42.8-82.8) 12/16/17 06:30 Lymphocytes % 14.7 % (8-40) 12/16/17 06:30 Monocytes % 12.0 % (3.8-10.2) H 12/16/17 06:30 Eosinophils % 2.4 % (0-4.5) 12/16/17 06:30 Basophils % 0.7 % (0-2.0) 12/16/17 06:30 Nucleated RBC % 0 % (0-0) 12/16/17 06:30 ESR 73 mm/hr (0-20) H 12/17/17 09:55 CMP Sodium 137 mmol/L (136-145) 12/17/17 06:30 Potassium 4.1 mmol/L (3.5-5.1) 12/17/17 06:30 Chloride 105 mmol/L (98-107) 12/17/17 06:30 Carbon Dioxide 23 mmol/L (21-32) 12/17/17 06:30 Anion Gap 9 MMOL/L (8-16) 12/17/17 06:30 BUN 36 mg/dL (7-18) H 12/17/17 06:30 Creatinine 1.7 mg/dL (0.55-1.3) H 12/17/17 06:30 Creat Clearance w eGFR 38.78 (>60) 12/17/17 06:30 POC Glucometer 136 UNITS (80-120) 12/17/17 13:38 Random Glucose 180 mg/dL (74-106) H 12/17/17 06:30 Hemoglobin A1c % 7.3 % (4.2-6.3) H 12/16/17 06:30 Lactic Acid 1.4 mmol/L (0.4-2.0) 12/15/17 17:47 Calcium 8.4 mg/dL (8.5-10.1) L 12/17/17 06:30 Phosphorus 3.2 mg/dL (2.5-4.9) 12/17/17 06:30 Magnesium 2.1 mg/dL (1.8-2.4) 12/17/17 06:30 Total Bilirubin 0.9 mg/dL (0.2-1) 12/16/17 06:30 AST 19 U/L (15-37) 12/16/17 06:30 ALT 30 U/L (13-61) 12/16/17 06:30 Alkaline Phosphatase 69 U/L (45-117) 12/16/17 06:30 Troponin I < 0.02 ng/ml (0.00-0.05) 12/15/17 17:47 C-Reactive Protein 11.8 MG/DL (0.00-0.3) H 12/17/17 09:57 Total Protein 7.7 g/dl (6.4-8.2) 12/16/17 06:30 Albumin 3.3 g/dl (3.4-5.0) L 12/16/17 06:30 patient is en route to MRI of lower extremities, patient voices no complaints Visit type - Emergency Visit Emergency Visit: Yes ED Registration Date: 12/15/17 Care time: The patient presented to the Emergency Department on the above date and was hospitalized for further evaluation of their emergent condition. - New Patient This patient is new to me today: Yes Date on this admission: 12/17/17 - Critical Care Critical Care patient: No - Discharge Referral Referred to [facility] Med P.C.: No
[2017-12-17] MEDS ORDERED: INSULIN (NOVOLOG) ASPART 100 UNITS/ML 10ML VIAL ONE (18:22)
[2017-12-17] MEDS ORDERED: PT OWN MED DRAWER 7, Y5N ONE (21:14)
[2017-12-17] MEDS: ATORVASTATIN CA 20 MG TABLET (FP) PO SCH (21:35)
[2017-12-18] MEDS: SODIUM CHLORIDE 1,000 ML IV SCH
[2017-12-18] MEDS: PIPERACILLIN/TAZOB 2.25 GM 2.25 GM in DEXTROSE 5%-WATER - 50 ML IVPB SCH ×3 (02:00→18:48)
[2017-12-18] MEDS ORDERED: REFRIGERATED ANITBIOTICS ONE (04:45)
[2017-12-18] MEDS: INSULIN SLIDING SCALE (NOVOLOG) 1 VIAL SQ SCH ×5 (05:59→22:50)
[2017-12-18] MEDS: HEPARIN NA (PORCINE) 5,000 UNITS/ML 1ML VIAL SQ SCH ×3 (06:00→21:54)
--- NOTE | 2017-12-18 08:55 | PN ---
Physical Exam: SUBJECTIVE: Patient seen and examined, ambulated patient reports pain to billateral legs, reports he may have a gout flareup because his knuckle on the right second digit of the hand is beginning to hurt OBJECTIVE: patient is a 82 M with PMH of CAD, DM, CKD, HLD, HTN admitted with complaints of b/l foot pain and an inability to walk. Vital Signs Period Temp Pulse Resp BP Sys/Xiao Pulse Ox Last 24 Hr 98.6 F-100.1 F 80-93 17-20 126-162/55-69 96-98 GENERAL: The patient is awake, alert, and fully oriented, in no acute distress. HEAD: Normal with no signs of trauma. EYES: PERRL, extraocular movements intact, sclera anicteric, conjunctiva clear. No ptosis. ENT: Ears normal, nares patent, oropharynx clear without exudates, moist mucous membranes. NECK: Trachea midline, full range of motion, supple. LUNGS: Breath sounds equal, clear to auscultation bilaterally, no wheezes, no crackles, no accessory muscle use. HEART: Regular rate and rhythm, S1, S2 without murmur, rub or gallop. ABDOMEN: Soft, nontender, nondistended, normoactive bowel sounds, no guarding, no rebound, no hepatosplenomegaly, no masses. EXTREMITIES:slight erythema noted to the right 2nd PCP with point tenderness, 2 + pulses, warm, well-perfused, no edema.left foot-->no erythema a noted NEUROLOGICAL: Cranial nerves II through XII grossly intact. Normal speech, shuffle gait noted. PSYCH: Normal mood, normal affect. SKIN: Warm, dry, normal turgor, no rashes or lesions noted Laboratory Results - last 24 hr 12/17/17 12/17/17 12/17/17 09:55 09:57 09:57 ESR 73 H POC Glucometer C-Reactive Protein 11.8 H Random Vancomycin 11.5 L 12/17/17 12/17/17 12/17/17 13:38 18:19 21:53 ESR POC Glucometer 136 233 120 C-Reactive Protein Random Vancomycin 12/18/17 05:58 ESR POC Glucometer 139 C-Reactive Protein Random Vancomycin CBC WBC 9.1 K/mm3 (4.0-10.8) 12/18/17 10:07 RBC 4.44 M/mm3 (4.00-5.60) 12/18/17 10:07 Hgb 13.4 GM/dl (11.7-16.9) 12/18/17 10:07 Hct 40.4 % (35.4-49) 12/18/17 10:07 MCV 91.0 fl (80-96) 12/18/17 10:07 MCH 30.1 pg (25.7-33.7) 12/18/17 10:07 MCHC 33.1 g/dl (32.0-35.9) 12/18/17 10:07 RDW 13.8 % (11.9-15.9) 12/18/17 10:07 Plt Count 351 K/MM3 (134-434) 12/18/17 10:07 MPV 7.9 fl (7.5-11.1) 12/18/17 10:07 Absolute Neuts (auto) 7.1 K/mm3 12/18/17 10:07 Neutrophils % 78.0 % (42.8-82.8) 12/18/17 10:07 Lymphocytes % 9.8 % (8-40) 12/18/17 10:07 Monocytes % 10.0 % (3.8-10.2) 12/18/17 10:07 Eosinophils % 1.6 % (0-4.5) 12/18/17 10:07 Basophils % 0.6 % (0-2.0) 12/18/17 10:07 Nucleated RBC % 0 % (0-0) 12/16/17 06:30 ESR 73 mm/hr (0-20) H 12/17/17 09:55 CMP Sodium 133 mmol/L (136-145) L 12/18/17 10:07 Potassium 4.2 mmol/L (3.5-5.1) 12/18/17 10:07 Chloride 102 mmol/L (98-107) 12/18/17 10:07 Carbon Dioxide 25 mmol/L (22-28) 12/18/17 10:07 Anion Gap 6 MMOL/L (8-16) L 12/18/17 10:07 BUN 30 mg/dl (7-18) H 12/18/17 10:07 Creatinine 1.5 mg/dl (0.6-1.3) H 12/18/17 10:07 Creat Clearance w eGFR 44.81 (>60) 12/18/17 10:07 POC Glucometer 180 UNITS (80-120) 12/18/17 12:14 Random Glucose 193 mg/dl (74-106) H 12/18/17 10:07 Hemoglobin A1c % 7.1 % (4.2-6.3) H 12/18/17 10:07 Lactic Acid 1.4 mmol/L (0.4-2.0) 12/15/17 17:47 Uric Acid 7.4 mg/dl (2.6-7.2) H 12/18/17 10:07 Calcium 8.2 mg/dl (8.4-10.2) L 12/18/17 10:07 Phosphorus 2.5 mg/dl (2.5-4.6) 12/18/17 10:07 Magnesium 1.9 mg/dL (1.8-2.4) 12/18/17 10:07 Total Bilirubin 1.1 mg/dl (0.2-1.0) H 12/18/17 10:07 AST 33 U/L (10-42) 12/18/17 10:07 ALT 35 U/L (10-40) 12/18/17 10:07 Alkaline Phosphatase 59 U/L (32-92) 12/18/17 10:07 Troponin I < 0.02 ng/ml (0.00-0.05) 12/15/17 17:47 C-Reactive Protein 11.8 MG/DL (0.00-0.3) H 12/17/17 09:57 Total Protein 7.1 g/dl (6.4-8.3) 12/18/17 10:07 Albumin 2.9 g/dl (3.5-5.0) L 12/18/17 10:07 Active Medications Generic Name Dose Route Start Last Admin Trade Name Freq PRN Reason Stop Dose Admin Acetaminophen 650 mg 12/16/17 18:16 12/16/17 18:28 Tylenol - PO 650 mg Q6H PRN Administration FEVER Amlodipine Besylate 5 mg 12/16/17 10:00 12/17/17 09:54 Norvasc - PO 5 mg DAILY [facility] Administration Aspirin 81 mg 12/16/17 10:00 12/17/17 09:54 Ecotrin - PO 81 mg DAILY [facility] Administration Atorvastatin Calcium 20 mg 12/16/17 22:00 12/17/17 21:35 Lipitor - PO 20 mg HS [facility] Administration Heparin Sodium (Porcine) 5,000 unit 12/15/17 23:15 12/18/17 06:00 Heparin - SQ 5,000 unit TID [facility] Administration Sodium Chloride 1,000 mls @ 75 mls/hr 12/15/17 23:00 12/18/17 00:00 Normal Saline - IV 75 mls/hr ASDIR [facility] Administration Piperacillin Sod/Tazobactam 50 mls @ 100 mls/hr 12/16/17 18:00 12/18/17 02:00 Sod 2.25 gm/ Dextrose IVPB 100 mls/hr Q8H-IV [facility] Administration Protocol Insulin Aspart 1 vial 12/16/17 22:00 12/18/17 06:00 Novolog Vial Sliding Scale - SQ Not Given ACHS [facility] Protocol Metoprolol Succinate 100 mg 12/16/17 10:00 12/17/17 09:54 Toprol Xl - PO 100 mg DAILY [facility] Administration Terazosin HCl 2 mg 12/18/17 10:00 Hytrin - PO DAILY [facility] Microbiology 12/15/17 17:47 Blood - Peripheral Venous Blood Culture - Preliminary NO GROWTH OBTAINED AFTER 48 HOURS, INCUBATION TO CONTINUE FOR 3 DAYS. 12/15/17 17:47 Blood - Peripheral Venous Blood Culture - Preliminary NO GROWTH OBTAINED AFTER 48 HOURS, INCUBATION TO CONTINUE FOR 3 DAYS. 12/15/17 20:01 Urine - Urine Clean Catch Urine Culture - Final IMAGING ultrasound duplex of right lower extremity: Abnormal distal flow with occlusion of the posterior tibial artery MRI of the right and left lower extremity: soft tissue edema to the right foot along the plantar aspect of the fourth and fifth metatarsal head no evidence of osteomyelitis Chest x-ray: cardiomegaly no acute infiltrate ASSESSMENT/PLAN: 1) ID: B/L Foot Cellulitis -continue zosyn day 2 - no leukocytosis is noted patient is afebrile - blood cultures negative to date - MRI noted no evidence of osteomyelitis -ID (Dr Werner) consulted and followed 2) MS acute gout flare - uric acid elevated will start colchine 3) cardiovascular PAD - ultrasound reviewed, Dr Ortiz (vascular) consulted, patient will require outpatient follow up HTN -continue home meds -Terazosin 2mg PO Daily -Norvasc 5 mg PO Daily -Toprol XL 100 mg PO Daily - b/p slightly above goal secondary to pain HLD -Lipitor 20 mg PO HS -ASA 81 4) nephrology 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 -creatine 1.5 improving, likely complication of rn long term care diabetes -Avoid nephrotoxic drugs 5) endo NIDDM -A1C 7.3 -BGMs ACHS -Insulin Sliding Scale DVT Prophylaxis -Heparin 5000 units SQ TID FEN -Fluids: None -Electrolytes: No electrolyte abnormalities, BMP in AM -Nutrition: Diabetic Diet Disposition: pt requires inpatient admission . Visit type - Emergency Visit Emergency Visit: Yes ED Registration Date: 12/15/17 Care time: The patient presented to the Emergency Department on the above date and was hospitalized for further evaluation of their emergent condition. - New Patient This patient is new to me today: No - Critical Care Critical Care patient: No - Discharge Referral Referred to [facility] Med P.C.: No
[2017-12-18] MEDS ORDERED: PT OWN MED DRAWER 7, Y5N ONE ×2 (09:37→18:12)
[2017-12-18] MEDS: ACETAMINOPHEN 325 MG TABLET (FP) PO PRN (09:45)
[2017-12-18] MEDS: ASPIRIN COATED 81 MG TABLET.EC PO SCH (09:46)
[2017-12-18] MEDS: amLODIPine BESYLATE 5 MG TABLET (FP) PO SCH (09:46)
[2017-12-18] MEDS: TERAZOSIN HCL 1 MG CAPSULE PO SCH (09:46)
--- NOTE | 2017-12-18 10:05 | PN ---
Progress Note, Physician History of Present Illness: patient still with c/o of leg pain severe in the right spiked a low grade fever mri; result still awaited - Current Medication List Current Medications: Active Medications Acetaminophen (Tylenol -) 650 mg PO Q6H PRN PRN Reason: FEVER Last Admin: 12/18/17 09:45 Dose: 650 mg Amlodipine Besylate (Norvasc -) 5 mg PO DAILY [facility] Last Admin: 12/18/17 09:46 Dose: 5 mg Aspirin (Ecotrin -) 81 mg PO DAILY [facility] Last Admin: 12/18/17 09:46 Dose: 81 mg Atorvastatin Calcium (Lipitor -) 20 mg PO HS [facility] Last Admin: 12/17/17 21:35 Dose: 20 mg Heparin Sodium (Porcine) (Heparin -) 5,000 unit SQ TID [facility] Last Admin: 12/18/17 06:00 Dose: 5,000 unit Sodium Chloride (Normal Saline -) 1,000 mls @ 75 mls/hr IV ASDIR [facility] Last Admin: 12/18/17 00:00 Dose: 75 mls/hr Piperacillin Sod/Tazobactam (Sod 2.25 gm/ Dextrose) 50 mls @ 100 mls/hr IVPB Q8H-IV [facility]; Protocol Last Admin: 12/18/17 09:47 Dose: 100 mls/hr Insulin Aspart (Novolog Vial Sliding Scale -) 1 vial SQ ACHS [facility]; Protocol Last Admin: 12/18/17 06:00 Dose: Not Given Metoprolol Succinate (Toprol Xl -) 100 mg PO DAILY [facility] Last Admin: 12/18/17 09:46 Dose: 100 mg Terazosin HCl (Hytrin -) 2 mg PO DAILY [facility] Last Admin: 12/18/17 09:46 Dose: 2 mg - Objective Vital Signs: Vital Signs Temperature 98.8 F 12/18/17 06:30 Pulse Rate 83 12/18/17 06:30 Respiratory Rate 18 12/18/17 08:31 Blood Pressure 126/55 L 12/18/17 06:30 O2 Sat by Pulse Oximetry (%) 98 12/18/17 08:31 Constitutional: Yes: No Distress, Calm Cardiovascular: Yes: Regular Rate and Rhythm Respiratory: Yes: Regular, CTA Bilaterally Gastrointestinal: Yes: Normal Bowel Sounds, Soft Musculoskeletal: Yes: Muscle Pain (rt leg), Other Neurological: Yes: Alert, Oriented Psychiatric: Yes: Alert, Oriented Labs: CBC, BMP 12/17/17 06:30 12/17/17 06:30 INR, PTT INR 1.13 (0.83-1.09) H 12/15/17 17:47 Assessment/Plan patient with rt foot pain b/l cellulitits of the leg erythema htn dm plan await mri result continue zosyn podiatry and vascular consult elevation of legs rest as per the team will see what mri result shows and then decide further plan
[2017-12-18 10:35] LABS: ALBUMIN 2.9 g/dl (3.5-5.0); ALK PHOS 59 U/L (32-92); ANION GAP 6 MMOL/L (8-16); BASO % 0.6 % (0-2.0); BILIRUBIN,TOTAL 1.1 mg/dl (0.2-1.0); BLOOD UREA NITROGEN 30 mg/dl (7-18); CALCIUM 8.2 mg/dl (8.4-10.2); CHLORIDE 102 mmol/L (98-107); CO2 25 mmol/L (22-28); CREATININE 1.5 mg/dl (0.6-1.3); EOS % 1.6 % (0-4.5); GLUCOSE,RANDOM 193 mg/dl (74-106); HEMATOCRIT 40.4 % (35.4-49); HEMOGLOBIN 13.4 GM/dl (11.7-16.9); LYMPH % 9.8 % (8-40); MAGNESIUM 1.9 mg/dL (1.8-2.4); MCH 30.1 pg (25.7-33.7); MCHC 33.1 g/dl (32.0-35.9); MEAN PLT VOLUME 7.9 fl (7.5-11.1); PHOSPHOROUS 2.5 mg/dl (2.5-4.6); PLATELET COUNT 351 K/MM3 (134-434); POTASSIUM 4.2 mmol/L (3.5-5.1); RBC 4.44 M/mm3 (4.00-5.60); RDW 13.8 % (11.9-15.9); SGOT/AST 33 U/L (10-42); SGPT/ALT 35 U/L (10-40); SODIUM 133 mmol/L (136-145); TOT PROT 7.1 g/dl (6.4-8.3); WHITE BLOOD COUNT 9.1 K/mm3 (4.0-10.8)
[2017-12-18] MEDS ORDERED: COLCHICINE 0.6 MG TABLET (FP) PO ONE (13:30)
[2017-12-18] MEDS: GABAPENTIN 300 MG CAPSULE (FP) PO SCH ×2 (14:14→21:54)
[2017-12-18] MEDS: ATORVASTATIN CA 20 MG TABLET (FP) PO SCH (21:54)
[2017-12-19] MEDS: PIPERACILLIN/TAZOB 2.25 GM 2.25 GM in DEXTROSE 5%-WATER - 50 ML IVPB SCH ×3 (01:21→17:16)
[2017-12-19] MEDS: GABAPENTIN 300 MG CAPSULE (FP) PO SCH ×3 (05:42→22:10)
[2017-12-19] MEDS: HEPARIN NA (PORCINE) 5,000 UNITS/ML 1ML VIAL SQ SCH ×3 (05:42→22:10)
--- NOTE | 2017-12-19 07:58 | PN ---
Progress Note (short form) - Note Progress Note: Podiatry Brief Note: MRI reviewed, which demonstrates no evidence of osteomyelitis bilateral feet, just ST swelling. The L 1st MTPJ was erythematous localized, which could be from acute gouty arthropathy. Agree with colchicine to see if symptoms are alleviated. Patient would also benefit from physical therapy evaluation. MRI findings associated with degenerative changes which could lend to pain to bilateral feet. Pain control. No acute podiatric intervention required based on MR findings. Brandan Cleveland DPM
[2017-12-19] MEDS: ASPIRIN COATED 81 MG TABLET.EC PO SCH (09:05)
[2017-12-19] MEDS: amLODIPine BESYLATE 5 MG TABLET (FP) PO SCH (09:06)
[2017-12-19] MEDS: TERAZOSIN HCL 1 MG CAPSULE PO SCH (09:06)
--- NOTE | 2017-12-19 09:54 | PN ---
Physical Exam: SUBJECTIVE: Patient seen and examined. C/o Rt MCP and lower ext pain,denies cp, sob, palpitations,abdominal pain N/V/ D but reports soft stools. OBJECTIVE: Vital Signs Period Temp Pulse Resp BP Sys/Xiao Pulse Ox Last 24 Hr 97.8 F-100.3 F 71-92 18-19 136-157/56-73 96-99 GENERAL: The patient is awake, alert, and fully oriented, in no acute distress. HEAD: Normal with no signs of trauma. EYES: PERRL, extraocular movements intact, sclera anicteric, conjunctiva clear. No ptosis. ENT: Ears normal, nares patent, oropharynx clear without exudates, moist mucous membranes. NECK: Trachea midline, full range of motion, supple. LUNGS: Breath sounds equal, clear to auscultation bilaterally, no wheezes, no crackles, no accessory muscle use. HEART: Regular rate and rhythm, S1, S2 without murmur, rub or gallop. ABDOMEN: Soft, nontender, nondistended, normoactive bowel sounds, no guarding, no rebound, no hepatosplenomegaly, no masses. EXTREMITIES: 2+ pulses, warm, well-perfused,+ mild bilateral ankle tenderness, no edema or erythema. Rt hand MCP pain/ + tenderness. NEUROLOGICAL: Cranial nerves II through XII grossly intact. Normal speech, gait not observed. PSYCH: Normal mood, normal affect. SKIN: Warm, dry, normal turgor, no rashes or lesions noted Laboratory Results - last 24 hr 12/18/17 12/18/17 12/18/17 10:07 10:07 10:07 WBC 9.1 RBC 4.44 Hgb 13.4 Hct 40.4 MCV 91.0 MCH 30.1 MCHC 33.1 RDW 13.8 Plt Count 351 MPV 7.9 Absolute Neuts (auto) 7.1 Neutrophils % 78.0 Lymphocytes % 9.8 Monocytes % 10.0 Eosinophils % 1.6 Basophils % 0.6 Sodium 133 L Potassium 4.2 Chloride 102 Carbon Dioxide 25 Anion Gap 6 L BUN 30 H Creatinine 1.5 H Creat Clearance w eGFR 44.81 POC Glucometer Random Glucose 193 H Hemoglobin A1c % 7.1 H Uric Acid Calcium 8.2 L Phosphorus 2.5 Magnesium 1.9 Total Bilirubin 1.1 H AST 33 ALT 35 Alkaline Phosphatase 59 Total Protein 7.1 Albumin 2.9 L 12/18/17 12/18/17 12/18/17 10:07 12:14 16:54 WBC RBC Hgb Hct MCV MCH MCHC RDW Plt Count MPV Absolute Neuts (auto) Neutrophils % Lymphocytes % Monocytes % Eosinophils % Basophils % Sodium Potassium Chloride Carbon Dioxide Anion Gap BUN Creatinine Creat Clearance w eGFR POC Glucometer 180 150 Random Glucose Hemoglobin A1c % Uric Acid 7.4 H Calcium Phosphorus Magnesium Total Bilirubin AST ALT Alkaline Phosphatase Total Protein Albumin 12/18/17 12/19/17 22:43 05:41 WBC RBC Hgb Hct MCV MCH MCHC RDW Plt Count MPV Absolute Neuts (auto) Neutrophils % Lymphocytes % Monocytes % Eosinophils % Basophils % Sodium Potassium Chloride Carbon Dioxide Anion Gap BUN Creatinine Creat Clearance w eGFR POC Glucometer 156 136 Random Glucose Hemoglobin A1c % Uric Acid Calcium Phosphorus Magnesium Total Bilirubin AST ALT Alkaline Phosphatase Total Protein Albumin Active Medications Generic Name Dose Route Start Last Admin Trade Name Freq PRN Reason Stop Dose Admin Acetaminophen 650 mg 12/16/17 18:16 12/18/17 09:45 Tylenol - PO 650 mg Q6H PRN Administration FEVER Amlodipine Besylate 5 mg 12/16/17 10:00 12/18/17 09:46 Norvasc - PO 5 mg DAILY [facility] Administration Aspirin 81 mg 12/16/17 10:00 12/18/17 09:46 Ecotrin - PO 81 mg DAILY [facility] Administration Atorvastatin Calcium 20 mg 12/16/17 22:00 12/18/17 21:54 Lipitor - PO 20 mg HS [facility] Administration Gabapentin 300 mg 12/18/17 14:00 12/19/17 05:42 Neurontin - PO 300 mg TID [facility] Administration Heparin Sodium (Porcine) 5,000 unit 12/15/17 23:15 12/19/17 05:42 Heparin - SQ 5,000 unit TID [facility] Administration Piperacillin Sod/Tazobactam 50 mls @ 100 mls/hr 12/16/17 18:00 12/19/17 01:21 Sod 2.25 gm/ Dextrose IVPB 100 mls/hr Q8H-IV [facility] Administration Protocol Insulin Aspart 1 vial 12/16/17 22:00 12/18/17 22:50 Novolog Vial Sliding Scale - SQ Not Given ACHS [facility] Protocol Metoprolol Succinate 100 mg 12/16/17 10:00 12/18/17 09:46 Toprol Xl - PO 100 mg DAILY [facility] Administration Terazosin HCl 2 mg 12/18/17 10:00 12/18/17 09:46 Hytrin - PO 2 mg DAILY [facility] Administration IMAGING Ultrasound duplex of right lower extremity: Abnormal distal flow with occlusion of the posterior tibial artery MRI of the right and left lower extremity: soft tissue edema to the right foot along the plantar aspect of the fourth and fifth metatarsal head no evidence of osteomyelitis Chest x-ray:Cardiomegaly no acute infiltrate Microbiology 12/15/17 17:47 Blood Culture - Preliminary Blood - Peripheral Venous NO GROWTH OBTAINED AFTER 72 HOURS, INCUBATION TO CONTINUE FOR 2 DAYS. 12/15/17 17:47 Blood Culture - Preliminary Blood - Peripheral Venous NO GROWTH OBTAINED AFTER 72 HOURS, INCUBATION TO CONTINUE FOR 2 DAYS. ASSESSMENT/PLAN: Patient is a 82 M with PMH of CAD, DM, CKD, HLD, HTN admitted with complaints of b/l foot pain and an inability to walk.Admitted with bilateral foot cellulitis *B/L Foot Cellulitis -continue zosyn day #3 - low grade fever with no leukocytosis - BC negative - blood cultures negative to date - MRI noted no evidence of osteomyelitis -ID Dr Werner following - abnormal ESR/CRP - PT eval *Acute gout flare - uric acid elevated - started on Colchicine *PAD - Ultrasound duplex of right lower extremity: Abnormal distal flow with occlusion of the posterior tibial artery - Dr Ortiz (vascular) consulted, patient will require outpatient follow up - will cont on ASA and Statin *HTN -continue home meds Terazosin,Norvasc and Toprol XL - will monitor BP closely *HLD -Lipitor 20 mg PO HS *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 Visit type - Emergency Visit Emergency Visit: Yes ED Registration Date: 12/15/17 Care time: The patient presented to the Emergency Department on the above date and was hospitalized for further evaluation of their emergent condition. - New Patient This patient is new to me today: Yes Date on this admission: 12/19/17 - Critical Care Critical Care patient: No
[2017-12-19] MEDS: LACTOBACILLUS ACIDOPHILUS 1 TABLET PO SCH (10:15)
[2017-12-19] MEDS ORDERED: PT OWN MED DRAWER 7, Y5N ONE (10:39)
[2017-12-19] MEDS: INSULIN SLIDING SCALE (NOVOLOG) 1 VIAL SQ SCH ×4 (11:10→22:31)
--- NOTE | 2017-12-19 11:52 | PN ---
Progress Note, Physician History of Present Illness: Pt c/o LE pain, L>R. No other specific complaints. Mildly elevated temp to 100F last night. - Current Medication List Current Medications: Active Medications Acetaminophen (Tylenol -) 650 mg PO Q6H PRN PRN Reason: FEVER Last Admin: 12/18/17 09:45 Dose: 650 mg Amlodipine Besylate (Norvasc -) 5 mg PO DAILY [facility] Last Admin: 12/18/17 09:46 Dose: 5 mg Aspirin (Ecotrin -) 81 mg PO DAILY [facility] Last Admin: 12/18/17 09:46 Dose: 81 mg Atorvastatin Calcium (Lipitor -) 20 mg PO HS [facility] Last Admin: 12/18/17 21:54 Dose: 20 mg Gabapentin (Neurontin -) 300 mg PO TID [facility] Last Admin: 12/19/17 05:42 Dose: 300 mg Heparin Sodium (Porcine) (Heparin -) 5,000 unit SQ TID [facility] Last Admin: 12/19/17 05:42 Dose: 5,000 unit Piperacillin Sod/Tazobactam (Sod 2.25 gm/ Dextrose) 50 mls @ 100 mls/hr IVPB Q8H-IV [facility]; Protocol Last Admin: 12/19/17 01:21 Dose: 100 mls/hr Insulin Aspart (Novolog Vial Sliding Scale -) 1 vial SQ ACHS [facility]; Protocol Last Admin: 12/18/17 22:50 Dose: Not Given Lactobacillus Acidophilus (Bacid -) 1 tab PO DAILY [facility] Metoprolol Succinate (Toprol Xl -) 100 mg PO DAILY [facility] Last Admin: 12/18/17 09:46 Dose: 100 mg Terazosin HCl (Hytrin -) 2 mg PO DAILY [facility] Last Admin: 12/18/17 09:46 Dose: 2 mg - Objective Vital Signs: Vital Signs Temperature 98.2 F 12/19/17 10:00 Pulse Rate 74 12/19/17 10:00 Respiratory Rate 18 12/19/17 10:00 Blood Pressure 151/58 L 12/19/17 10:00 O2 Sat by Pulse Oximetry (%) 99 12/19/17 10:00 Constitutional: Yes: No Distress, Calm Cardiovascular: Yes: Regular Rate and Rhythm Respiratory: Yes: CTA Bilaterally Gastrointestinal: Yes: Normal Bowel Sounds, Soft Extremities: Yes: Erythema (mild b/l, +tenderness mainly in Lt foot) Integumentary: Yes: WNL Neurological: Yes: Alert, Oriented Labs: CBC, BMP 12/18/17 10:07 12/18/17 10:07 INR, PTT INR 1.13 (0.83-1.09) H 12/15/17 17:47 Problem List - Problems (1) Cellulitis Code(s): L03.90 - CELLULITIS, UNSPECIFIED Qualifiers: Site of cellulitis: extremity Site of cellulitis of extremity: lower extremity Laterality: right Qualified Code(s): L03.115 - Cellulitis of right lower limb (2) Hypertension Code(s): I10 - ESSENTIAL (PRIMARY) HYPERTENSION Qualifiers: Hypertension type: unspecified Qualified Code(s): I10 - Essential (primary ) hypertension (3) Renal insufficiency Code(s): N28.9 - DISORDER OF KIDNEY AND URETER, UNSPECIFIED Assessment/Plan Cellulitis Possible Gouty arthropathy Hyperglycemia NASRIN -- cont. current antibiotic -- MRI results noted, +soft tissue edema without findings to suggest OM -- consider colchicine -- monitor temperatures
[2017-12-19] MEDS: COLCHICINE 0.6 MG TABLET (FP) PO SCH (12:05)
[2017-12-19] MEDS: ATORVASTATIN CA 20 MG TABLET (FP) PO SCH (22:10)
[2017-12-20] MEDS: PIPERACILLIN/TAZOB 2.25 GM 2.25 GM in DEXTROSE 5%-WATER - 50 ML IVPB SCH ×3 (01:27→17:04)
[2017-12-20] MEDS: GABAPENTIN 300 MG CAPSULE (FP) PO SCH ×3 (06:57→21:13)
[2017-12-20] MEDS: HEPARIN NA (PORCINE) 5,000 UNITS/ML 1ML VIAL SQ SCH ×3 (06:57→21:13)
[2017-12-20] MEDS: INSULIN SLIDING SCALE (NOVOLOG) 1 VIAL SQ SCH ×4 (06:57→21:23)
[2017-12-20] MEDS: amLODIPine BESYLATE 5 MG TABLET (FP) PO SCH (09:39)
[2017-12-20] MEDS: TERAZOSIN HCL 1 MG CAPSULE PO SCH (10:30)
[2017-12-20] MEDS: LACTOBACILLUS ACIDOPHILUS 1 TABLET PO SCH (10:37)
[2017-12-20] MEDS: COLCHICINE 0.6 MG TABLET (FP) PO SCH (10:37)
[2017-12-20] MEDS: ASPIRIN COATED 81 MG TABLET.EC PO SCH (10:38)
[2017-12-20] MEDS ORDERED: PT OWN MED DRAWER 7, Y5N ONE (12:00)
--- NOTE | 2017-12-20 12:00 | PN ---
Progress Note, Physician History of Present Illness: Pt is alert, afebrile. Reports decrease in ankle pain since starting colchicine. LE edema improving. c/o 3 looser BMs today, without abdominal discomfort. - Current Medication List Current Medications: Active Medications Acetaminophen (Tylenol -) 650 mg PO Q6H PRN PRN Reason: FEVER Last Admin: 12/18/17 09:45 Dose: 650 mg Amlodipine Besylate (Norvasc -) 5 mg PO DAILY [facility] Last Admin: 12/19/17 09:06 Dose: 5 mg Aspirin (Ecotrin -) 81 mg PO DAILY [facility] Last Admin: 12/19/17 09:05 Dose: 81 mg Atorvastatin Calcium (Lipitor -) 20 mg PO HS [facility] Last Admin: 12/19/17 22:10 Dose: 20 mg Colchicine (Colcrys -) 0.6 mg PO DAILY [facility] Last Admin: 12/19/17 12:05 Dose: 0.6 mg Gabapentin (Neurontin -) 300 mg PO TID [facility] Last Admin: 12/20/17 06:57 Dose: Not Given Heparin Sodium (Porcine) (Heparin -) 5,000 unit SQ TID [facility] Last Admin: 12/20/17 06:57 Dose: 5,000 unit Piperacillin Sod/Tazobactam (Sod 2.25 gm/ Dextrose) 50 mls @ 100 mls/hr IVPB Q8H-IV [facility]; Protocol Last Admin: 12/20/17 01:27 Dose: 100 mls/hr Insulin Aspart (Novolog Vial Sliding Scale -) 1 vial SQ ACHS [facility]; Protocol Last Admin: 12/20/17 06:57 Dose: Not Given Lactobacillus Acidophilus (Bacid -) 1 tab PO DAILY [facility] Last Admin: 12/19/17 10:15 Dose: 1 tab Metoprolol Succinate (Toprol Xl -) 100 mg PO DAILY [facility] Last Admin: 12/19/17 09:06 Dose: 100 mg Terazosin HCl (Hytrin -) 2 mg PO DAILY [facility] Last Admin: 12/19/17 09:06 Dose: 2 mg - Objective Vital Signs: Vital Signs Temperature 98.5 F 12/20/17 06:00 Pulse Rate 72 12/20/17 06:00 Respiratory Rate 18 12/20/17 09:19 Blood Pressure 158/61 12/20/17 06:00 O2 Sat by Pulse Oximetry (%) 98 12/20/17 09:19 Constitutional: Yes: No Distress, Calm Cardiovascular: Yes: Regular Rate and Rhythm Respiratory: Yes: CTA Bilaterally Gastrointestinal: Yes: Normal Bowel Sounds, Soft Genitourinary: Yes: WNL Musculoskeletal: Yes: Other (Lt ankle pain) Integumentary: Yes: WNL Neurological: Yes: Alert, Oriented Labs: CBC, BMP 12/18/17 10:07 12/18/17 10:07 INR, PTT INR 1.13 (0.83-1.09) H 12/15/17 17:47 Problem List - Problems (1) Cellulitis Code(s): L03.90 - CELLULITIS, UNSPECIFIED Qualifiers: Site of cellulitis: extremity Site of cellulitis of extremity: lower extremity Laterality: right Qualified Code(s): L03.115 - Cellulitis of right lower limb (2) Hypertension Code(s): I10 - ESSENTIAL (PRIMARY) HYPERTENSION Qualifiers: Hypertension type: unspecified Qualified Code(s): I10 - Essential (primary ) hypertension (3) Renal insufficiency Code(s): N28.9 - DISORDER OF KIDNEY AND URETER, UNSPECIFIED Assessment/Plan LE Cellulitis - improving Possible Gouty arthropathy Hyperglycemia NASRIN Diarrhea r/o C diff -- cont. current antibiotic -- send stool for CDT, repeat cbc/bmp today -- on colchicine -- now afebrile
[2017-12-20 12:42] LABS: HEMATOCRIT 38.8 % (35.4-49)
[2017-12-20 12:45] LABS: BASO % 0.9 % (0-2.0); EOS % 7.1 % (0-4.5); LYMPH % 13.7 % (8-40); MCH 30.9 pg (25.7-33.7); MCHC 33.6 g/dl (32.0-35.9); MEAN CELL VOLUME 91.9 fl (80-96); MEAN PLT VOLUME 7.7 fl (7.5-11.1); NEUT % 70.3 % (42.8-82.8); PLATELET COUNT 447 K/MM3 (134-434); RBC 4.22 M/mm3 (4.00-5.60); RDW 13.6 % (11.9-15.9); WHITE BLOOD COUNT 7.9 K/mm3 (4.0-10.8)
[2017-12-20 12:50] LABS: ANION GAP 7 MMOL/L (8-16); BLOOD UREA NITROGEN 32 mg/dl (7-18); CALCIUM 8.8 mg/dl (8.4-10.2); CHLORIDE 102 mmol/L (98-107); CO2 25 mmol/L (22-28); CREATININE 1.5 mg/dl (0.6-1.3); GLUCOSE,RANDOM 187 mg/dl (74-106); POTASSIUM 4.3 mmol/L (3.5-5.1); SODIUM 134 mmol/L (136-145)
[2017-12-20] MEDS ORDERED: amLODIPine BESYLATE 5 MG TABLET (FP) PO SCH (13:16)
[2017-12-20] MEDS ORDERED: amLODIPine BESYLATE 5 MG TABLET (FP) PO ONE (13:16)
--- NOTE | 2017-12-20 13:17 | PN ---
Progress Note, Physician Chief Complaint: pt seen and examined, states he is having several bowel movements 4-5, 3 so far this morning. lower ext pain improved - Current Medication List Current Medications: Active Medications Acetaminophen (Tylenol -) 650 mg PO Q6H PRN PRN Reason: FEVER Last Admin: 12/18/17 09:45 Dose: 650 mg Amlodipine Besylate (Norvasc -) 5 mg PO DAILY [facility] Last Admin: 12/19/17 09:06 Dose: 5 mg Aspirin (Ecotrin -) 81 mg PO DAILY [facility] Last Admin: 12/19/17 09:05 Dose: 81 mg Atorvastatin Calcium (Lipitor -) 20 mg PO HS [facility] Last Admin: 12/19/17 22:10 Dose: 20 mg Colchicine (Colcrys -) 0.6 mg PO DAILY [facility] Last Admin: 12/19/17 12:05 Dose: 0.6 mg Gabapentin (Neurontin -) 300 mg PO TID [facility] Last Admin: 12/20/17 06:57 Dose: Not Given Heparin Sodium (Porcine) (Heparin -) 5,000 unit SQ TID [facility] Last Admin: 12/20/17 06:57 Dose: 5,000 unit Piperacillin Sod/Tazobactam (Sod 2.25 gm/ Dextrose) 50 mls @ 100 mls/hr IVPB Q8H-IV [facility]; Protocol Last Admin: 12/20/17 01:27 Dose: 100 mls/hr Insulin Aspart (Novolog Vial Sliding Scale -) 1 vial SQ ACHS [facility]; Protocol Last Admin: 12/20/17 06:57 Dose: Not Given Lactobacillus Acidophilus (Bacid -) 1 tab PO DAILY [facility] Last Admin: 12/19/17 10:15 Dose: 1 tab Metoprolol Succinate (Toprol Xl -) 100 mg PO DAILY [facility] Last Admin: 12/19/17 09:06 Dose: 100 mg Terazosin HCl (Hytrin -) 2 mg PO DAILY [facility] Last Admin: 12/19/17 09:06 Dose: 2 mg - Objective Vital Signs: Vital Signs Temperature 98.5 F 12/20/17 06:00 Pulse Rate 72 12/20/17 06:00 Respiratory Rate 18 12/20/17 09:19 Blood Pressure 158/61 12/20/17 06:00 O2 Sat by Pulse Oximetry (%) 98 12/20/17 09:19 Constitutional: Yes: No Distress Eyes: Yes: Conjunctiva Clear Neck: Yes: Supple Respiratory: Yes: Regular, CTA Bilaterally Gastrointestinal: Yes: Normal Bowel Sounds, Soft Edema: No Integumentary: Yes: Other (r planter lateral callus improving) Neurological: Yes: Alert, Oriented, Cran Nerves II-XII Intact Labs: CBC, BMP 12/20/17 12:30 12/20/17 12:30 INR, PTT INR 1.13 (0.83-1.09) H 12/15/17 17:47 - ....Imaging MRI: Report Reviewed Impression/Plan Impression/Plan: Assessment: 82 year old male with PMH of CAD, DM, CKD, HLD, HTN admitted with complaints of b/l foot pain and an inability to walk. Admitted with bilateral foot cellulitis Plan: 1. Bilateral Foot Cellulitis - Continue zosyn - Send stool for C diff - Cont bacid - MRI neg for osteo 2. Acute gout flare - Continue Colchicine - Consider allopurinol as outpt? reports to have taken colchicine at home prior however not on home med list, will need to confirm 3. PAD - Ultrasound duplex of right lower extremity: Abnormal distal flow with occlusion of the posterior tibial artery - Dr Ortiz (vascular) consulted, patient will require outpatient follow up - Cont on ASA and Statin 4. HTN - Mod elevated, given DM/CKD ideal SBP 140's - Takes losartan/HCTZ at home - Will restart losartan given stable cr - Would discontinue HCTZ on discharge - Cont norvasc 5mg, toprol xl 100mg daily 5. HLD - Lipitor 20 mg PO HS 6. 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 hx of CHF - Not in exacerbation here, however if dc HCTZ will need PCP follow up re: +/- continuation of diuretic/ renal fxn monitoring 8. NIDDM -A1C 7.1 -BGMs ACHS -Insulin Sliding Scale 9. DVT Prophylaxis -Heparin 5000 units SQ TID 10. Diarrhea - Follow C diff cx Visit type - Emergency Visit Emergency Visit: Yes ED Registration Date: 12/15/17 Care time: The patient presented to the Emergency Department on the above date and was hospitalized for further evaluation of their emergent condition. - New Patient This patient is new to me today: Yes Date on this admission: 12/20/17 - Critical Care Critical Care patient: No
[2017-12-20] MEDS: LOSARTAN POTASSIUM 50 MG TABLET (FP) PO SCH (14:37)
[2017-12-20] MEDS: ATORVASTATIN CA 20 MG TABLET (FP) PO SCH (21:13)
[2017-12-21] MEDS: PIPERACILLIN/TAZOB 2.25 GM 2.25 GM/50 ML BAG IVPB SCH ×3 (01:51→17:48)
[2017-12-21] MEDS: GABAPENTIN 300 MG CAPSULE (FP) PO SCH ×3 (05:06→21:39)
[2017-12-21] MEDS: HEPARIN NA (PORCINE) 5,000 UNITS/ML 1ML VIAL SQ SCH ×3 (05:06→21:40)
[2017-12-21] MEDS: INSULIN SLIDING SCALE (NOVOLOG) 1 VIAL SQ SCH ×4 (06:20→21:40)
[2017-12-21 08:18] LABS: HEMOGLOBIN 12.5 GM/dl (11.7-16.9); MCH 30.2 pg (25.7-33.7); MEAN CELL VOLUME 91.4 fl (80-96); MEAN PLT VOLUME 7.7 fl (7.5-11.1); PLATELET COUNT 448 K/MM3 (134-434); RBC 4.15 M/mm3 (4.00-5.60); RDW 13.7 % (11.9-15.9); WHITE BLOOD COUNT 7.3 K/mm3 (4.0-10.8)
[2017-12-21 08:45] LABS: ANION GAP 8 MMOL/L (8-16); BLOOD UREA NITROGEN 31 mg/dl (7-18); CALCIUM 8.7 mg/dl (8.4-10.2); CHLORIDE 103 mmol/L (98-107); CO2 23 mmol/L (22-28); CREATININE 1.4 mg/dl (0.6-1.3); GLUCOSE,RANDOM 168 mg/dl (74-106); MAGNESIUM 1.8 mg/dL (1.8-2.4); PHOSPHOROUS 3.7 mg/dl (2.5-4.6); POTASSIUM 4.6 mmol/L (3.5-5.1); SODIUM 134 mmol/L (136-145)
[2017-12-21] MEDS ORDERED: PT OWN MED DRAWER 7, Y5N ONE (09:50)
[2017-12-21] MEDS: COLCHICINE 0.6 MG TABLET (FP) PO SCH (10:33)
[2017-12-21] MEDS: ASPIRIN COATED 81 MG TABLET.EC PO SCH (10:33)
[2017-12-21] MEDS: TERAZOSIN HCL 1 MG CAPSULE PO SCH (10:35)
[2017-12-21] MEDS: amLODIPine BESYLATE 5 MG TABLET (FP) PO SCH (10:43)
[2017-12-21] MEDS: LOSARTAN POTASSIUM 50 MG TABLET (FP) PO SCH (10:43)
[2017-12-21] MEDS: LACTOBACILLUS ACIDOPHILUS 1 TABLET PO SCH (10:59)
--- NOTE | 2017-12-21 13:04 | DS ---
Physical Exam: SUBJECTIVE: Patient seen and examined, sitting in bedside chair,denies any pain. tolerating diet wants to go home. OBJECTIVE: 82M w/ pmhx of CAD, DM, CKD, HLD, HTN presented to the ED w/ complaints of b/l foot pain and an inability to walk. 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 Ever since then, he's had worsening b/l foot pain. He also complains of bilateral leg weakness that started around the same time the foot pain started causing his inability to walk. He denies fever/chills , nausea/vomiting, headaches/dizziness, abdominal pain, urinary/bowel symptoms, blood in urine or stool. He reports that he used to take Metformin, but does not anymore as his PCP told him to discontinue taking it. Of note, he had a hx of 2 groin abscesses on 01/2017, +MRSA. ER course was notable for: (1) BP 140/62, BUN 46, Cr 2.1 (2) Zosyn 2.25gm, Vanc 1.5gm given (3) Blood/urine cx ordered, CXR ordered pending final read Vital Signs Period Temp Pulse Resp BP Sys/Xiao Pulse Ox Last 24 Hr 98.5 F-98.7 F 72-76 18-18 139-151/55-63 93-98 PHYSICAL EXAM GENERAL: The patient is awake, alert, and fully oriented, in no acute distress. HEAD: Normal with no signs of trauma. EYES: PERRL, extraocular movements intact, sclera anicteric, conjunctiva clear. No ptosis. ENT: Ears normal, nares patent, oropharynx clear without exudates, moist mucous membranes. NECK: Trachea midline, full range of motion, supple. LUNGS: Breath sounds equal, clear to auscultation bilaterally, no wheezes, no crackles, no accessory muscle use. HEART: Regular rate and rhythm, S1, S2 without murmur, rub or gallop. ABDOMEN: Soft, nontender, nondistended, normoactive bowel sounds, no guarding, no rebound, no hepatosplenomegaly, no masses. EXTREMITIES: erythema resolved to the right 2nd PCP, 2+ pulses, warm, well- perfused, no edema.left foot-->no erythema a noted NEUROLOGICAL: Cranial nerves II through XII grossly intact. Normal speech, shuffle gait noted. PSYCH: Normal mood, normal affect. SKIN: Warm, dry, normal turgor, no rashes or lesions noted LABS Laboratory Results - last 24 hr 12/20/17 12/21/17 12/21/17 21:21 06:11 07:35 WBC 7.3 RBC 4.15 Hgb 12.5 Hct 38.0 MCV 91.4 MCH 30.2 MCHC 33.0 RDW 13.7 Plt Count 448 H MPV 7.7 Sodium Potassium Chloride Carbon Dioxide Anion Gap BUN Creatinine Creat Clearance w eGFR POC Glucometer 191 155 Random Glucose Calcium Phosphorus Magnesium 12/21/17 12/21/17 07:35 12:07 WBC RBC Hgb Hct MCV MCH MCHC RDW Plt Count MPV Sodium 134 L Potassium 4.6 Chloride 103 Carbon Dioxide 23 Anion Gap 8 BUN 31 H Creatinine 1.4 H Creat Clearance w eGFR 48.52 POC Glucometer 148 Random Glucose 168 H Calcium 8.7 Phosphorus 3.7 D Magnesium 1.8 Microbiology 12/20/17 12:50 Stool Clostridium difficile Antigen ([facility]) - Final, negative 12/20/17 12:50 Stool Clostridium difficile Toxin Assay - Final, negative 12/15/17 17:47 Blood - Peripheral Venous Blood Culture - Final NO GROWTH AFTER 5 DAYS INCUBATION 12/15/17 17:47 Blood - Peripheral Venous Blood Culture - Final NO GROWTH AFTER 5 DAYS INCUBATION 12/15/17 20:01 Urine - Urine Clean Catch Urine Culture - Final Imaging ultrasound duplex of right lower extremity: Abnormal distal flow with occlusion of the posterior tibial artery MRI of the right and left lower extremity: soft tissue edema to the right foot along the plantar aspect of the fourth and fifth metatarsal head no evidence of osteomyelitis Chest x-ray: cardiomegaly no acute infiltrate HOSPITAL COURSE: 1) B/L Foot Cellulitis -continue zosyn day 6 - no leukocytosis is noted patient is afebrile - blood cultures and urine culture negative to date - MRI noted no evidence of osteomyelitis -ID (Dr Werner) consulted and followed 2) MS acute gout flare - uric acid elevated, patient was started on colchine with relief of symptoms 3) cardiovascular PAD - ultrasound reviewed, Dr Ortiz (vascular) consulted, patient will require outpatient follow up HTN -continue home meds -Terazosin 2mg PO Daily -Norvasc 5 mg PO Daily -Toprol XL 100 mg PO Daily - b/p slightly above goal secondary to pain HLD -Lipitor 20 mg PO HS -ASA 81 4) nephrology 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 -creatine 1.4, improved, 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 -Avoid nephrotoxic drugs 5) endo NIDDM -A1C 7.3 -BGMs ACHS -Insulin Sliding Scale PLAN - patient to be discharged to SNF for short term rehab - Date of Admission:12/15/17 Date of Discharge: 12/21/17 Minutes to complete discharge: 45 Discharge Summary Reason For Visit: CELLULITIS Current Active Problems Cellulitis (Acute) Hypertension (Acute) Renal insufficiency (Acute) Condition: Stable - Instructions Diet, Activity, Other Instructions: your Norvasc was increased to 10 mg daily please continue as prescribed your hydrochlorothiazide was discontinued you were treated for 6 days with IV antibiotics, please continue augmentin ( antibiotic) as prescribed in addition you were started on colchine for gout, please continue medication daily please follow up with the vascular surgeon within 2 weeks if any new or persistent symptoms develop please return to the emergency department Referrals: Fidel Cleveland MD [Staff Physician] - Kierra Cummins MD [Primary Care Provider] - Natalio Ortiz MD [Non Staff, Medical] - Disposition: [facility] - Home Medications Comprehensive Discharge Medication List: Ambulatory Orders Aspirin [Aspirin EC] 81 mg PO DAILY 06/20/14 Simvastatin [Zocor -] 40 mg PO DAILY #14 tablet 06/22/14 Metoprolol Succinate [Toprol Xl] 100 mg PO DAILY 01/14/17 Terazosin HCl 2 mg PO DAILY 01/14/17 Amlodipine Besylate [Norvasc -] 5 mg PO DAILY #15 tablet 01/16/17 Losartan/Hydrochlorothiazide [Losartan-Hctz 50-12.5 mg Tab] 50 mg PO DAILY 12/16 This patient is new to me today: No Emergency Visit: Yes ED Registration Date: 12/15/17 Care time: The patient presented to the Emergency Department on the above date and was hospitalized for further evaluation of their emergent condition. Critical Care patient: No - Discharge Referral Referred to [facility] No
--- NOTE | 2017-12-21 17:56 | PN ---
Progress Note, Physician History of Present Illness: stable no new issues leg pain has improved - Current Medication List Current Medications: Active Medications Acetaminophen (Tylenol -) 650 mg PO Q6H PRN PRN Reason: FEVER Last Admin: 12/18/17 09:45 Dose: 650 mg Amlodipine Besylate (Norvasc -) 5 mg PO DAILY [facility] Last Admin: 12/21/17 10:43 Dose: 5 mg Aspirin (Ecotrin -) 81 mg PO DAILY [facility] Last Admin: 12/21/17 10:33 Dose: 81 mg Atorvastatin Calcium (Lipitor -) 20 mg PO HS [facility] Last Admin: 12/20/17 21:13 Dose: 20 mg Colchicine (Colcrys -) 0.6 mg PO DAILY [facility] Last Admin: 12/21/17 10:33 Dose: 0.6 mg Gabapentin (Neurontin -) 300 mg PO TID [facility] Last Admin: 12/21/17 14:25 Dose: 300 mg Heparin Sodium (Porcine) (Heparin -) 5,000 unit SQ TID [facility] Last Admin: 12/21/17 14:24 Dose: 5,000 unit Piperacillin Sod/Tazobactam Sod (Zosyn 2.25gm Ivpb (Pre-Docked)) 2.25 gm in 50 mls @ 100 mls/hr IVPB Q8H-IV [facility]; Protocol Last Admin: 12/21/17 17:48 Dose: 100 mls/hr Insulin Aspart (Novolog Vial Sliding Scale -) 1 vial SQ ACHS [facility]; Protocol Last Admin: 12/21/17 17:48 Dose: Not Given Lactobacillus Acidophilus (Bacid -) 1 tab PO DAILY [facility] Last Admin: 12/21/17 10:59 Dose: 1 tab Losartan Potassium (Cozaar -) 50 mg PO DAILY [facility] Last Admin: 12/21/17 10:43 Dose: 50 mg Metoprolol Succinate (Toprol Xl -) 100 mg PO DAILY [facility] Last Admin: 12/21/17 10:43 Dose: 100 mg Terazosin HCl (Hytrin -) 2 mg PO DAILY [facility] Last Admin: 12/21/17 10:35 Dose: 2 mg - Objective Vital Signs: Vital Signs Temperature 98.2 F 12/21/17 14:18 Pulse Rate 68 12/21/17 14:18 Respiratory Rate 19 12/21/17 14:18 Blood Pressure 139/54 L 12/21/17 14:18 O2 Sat by Pulse Oximetry (%) 94 L 12/21/17 14:18 Constitutional: Yes: No Distress, Calm Respiratory: Yes: Regular, CTA Bilaterally Gastrointestinal: Yes: Normal Bowel Sounds, Soft Musculoskeletal: Yes: WNL Extremities: Yes: WNL Neurological: Yes: Alert, Oriented Psychiatric: Yes: Alert, Oriented Labs: CBC, BMP 12/21/17 07:35 12/21/17 07:35 INR, PTT INR 1.13 (0.83-1.09) H 12/15/17 17:47 Assessment/Plan patient with rt foot pain b/l cellulitits of the leg erythema htn dm plan all results noted can switch to oral augmentin for couple of days elevation of legs rest as per the team
[2017-12-21] MEDS: ATORVASTATIN CA 20 MG TABLET (FP) PO SCH (21:39)
[2017-12-22] MEDS: HEPARIN NA (PORCINE) 5,000 UNITS/ML 1ML VIAL SQ SCH ×2 (06:25→14:00)
[2017-12-22] MEDS: GABAPENTIN 300 MG CAPSULE (FP) PO SCH ×2 (06:25→14:00)
[2017-12-22] MEDS: INSULIN SLIDING SCALE (NOVOLOG) 1 VIAL SQ SCH ×3 (06:26→17:38)
[2017-12-22] MEDS: AMOX TR/POT CLAV 500MG/125MG TABLETS (FP) PO SCH ×2 (08:01→17:34)
--- NOTE | 2017-12-22 09:06 | PN ---
Progress Note, Physician History of Present Illness: patient doing well no new issues legs are doing well - Current Medication List Current Medications: Active Medications Acetaminophen (Tylenol -) 650 mg PO Q6H PRN PRN Reason: FEVER Last Admin: 12/18/17 09:45 Dose: 650 mg Amlodipine Besylate (Norvasc -) 5 mg PO DAILY [facility] Last Admin: 12/21/17 10:43 Dose: 5 mg Amoxicillin/Clavulanate Potassium (Augmentin - 500mg Tablet) 1 tab PO BID@0800, 1730 [facility] Aspirin (Ecotrin -) 81 mg PO DAILY [facility] Last Admin: 12/21/17 10:33 Dose: 81 mg Atorvastatin Calcium (Lipitor -) 20 mg PO HS [facility] Last Admin: 12/21/17 21:39 Dose: 20 mg Colchicine (Colcrys -) 0.6 mg PO DAILY [facility] Last Admin: 12/21/17 10:33 Dose: 0.6 mg Gabapentin (Neurontin -) 300 mg PO TID [facility] Last Admin: 12/22/17 06:25 Dose: 300 mg Heparin Sodium (Porcine) (Heparin -) 5,000 unit SQ TID [facility] Last Admin: 12/22/17 06:25 Dose: 5,000 unit Insulin Aspart (Novolog Vial Sliding Scale -) 1 vial SQ [facility]; Protocol Last Admin: 12/22/17 06:26 Dose: Not Given Lactobacillus Acidophilus (Bacid -) 1 tab PO DAILY [facility] Last Admin: 12/21/17 10:59 Dose: 1 tab Losartan Potassium (Cozaar -) 50 mg PO DAILY [facility] Last Admin: 12/21/17 10:43 Dose: 50 mg Metoprolol Succinate (Toprol Xl -) 100 mg PO DAILY [facility] Last Admin: 12/21/17 10:43 Dose: 100 mg Terazosin HCl (Hytrin -) 2 mg PO DAILY [facility] Last Admin: 12/21/17 10:35 Dose: 2 mg - Objective Vital Signs: Vital Signs Temperature 98.6 F 12/22/17 05:00 Pulse Rate 83 12/22/17 05:00 Respiratory Rate 18 12/22/17 05:00 Blood Pressure 185/74 H 12/22/17 05:00 O2 Sat by Pulse Oximetry (%) 95 12/22/17 06:54 Constitutional: Yes: No Distress, Calm Neck: Yes: Supple Cardiovascular: Yes: Regular Rate and Rhythm Respiratory: Yes: Regular, CTA Bilaterally Gastrointestinal: Yes: Normal Bowel Sounds, Soft Extremities: Yes: WNL Integumentary: Yes: Other Neurological: Yes: Alert, Oriented Psychiatric: Yes: Alert, Oriented Labs: CBC, BMP 12/21/17 07:35 12/21/17 07:35 INR, PTT INR 1.13 (0.83-1.09) H 12/15/17 17:47 Assessment/Plan patient with rt foot pain b/l cellulitits of the leg erythema htn dm plan all results noted oral augmentin for couple of days elevation of legs rest as per the team
[2017-12-22] MEDS: LOSARTAN POTASSIUM 50 MG TABLET (FP) PO SCH (10:00)
[2017-12-22] MEDS: LACTOBACILLUS ACIDOPHILUS 1 TABLET PO SCH (10:00)
[2017-12-22] MEDS: ASPIRIN COATED 81 MG TABLET.EC PO SCH (10:00)
[2017-12-22] MEDS: COLCHICINE 0.6 MG TABLET (FP) PO SCH (10:00)
[2017-12-22] MEDS: TERAZOSIN HCL 1 MG CAPSULE PO SCH (10:10)
[2017-12-22] MEDS: amLODIPine BESYLATE 5 MG TABLET (FP) PO SCH (10:20)
[2017-12-22] MEDS ORDERED: PT OWN MED DRAWER 7, Y5N ONE (10:51)
[2017-12-22 11:32] VITALS: BP 146/53; PULSE 79; TEMP 98.4
--- NOTE | 2017-12-22 14:30 | PN ---
Physical Exam: SUBJECTIVE: Patient seen and examined, seen and examined, sitting in bedside chair,denies any pain. tolerating diet awaiting a bed at SNF. OBJECTIVE: patient is a 82 M with PMH of CAD, DM, CKD, HLD, HTN admitted with complaints of b/l foot pain secondary to cellulitis, gouty arthritis, and PAD Vital Signs Period Temp Pulse Resp BP Sys/Xiao Pulse Ox Last 24 Hr 98.0 F-98.6 F 68-83 17-19 139-185/50-74 94-98 GENERAL: The patient is awake, alert, and fully oriented, in no acute distress. HEAD: Normal with no signs of trauma. EYES: PERRL, extraocular movements intact, sclera anicteric, conjunctiva clear. No ptosis. ENT: Ears normal, nares patent, oropharynx clear without exudates, moist mucous membranes. NECK: Trachea midline, full range of motion, supple. LUNGS: Breath sounds equal, clear to auscultation bilaterally, no wheezes, no crackles, no accessory muscle use. HEART: Regular rate and rhythm, S1, S2 without murmur, rub or gallop. ABDOMEN: Soft, nontender, nondistended, normoactive bowel sounds, no guarding, no rebound, no hepatosplenomegaly, no masses. EXTREMITIES: erythema resolved to the right 2nd PCP, 2+ pulses, warm, well- perfused, no edema.left foot-->no erythema a noted NEUROLOGICAL: Cranial nerves II through XII grossly intact. Normal speech, shuffle gait noted. PSYCH: Normal mood, normal affect. SKIN: Warm, dry, normal turgor, no rashes or lesions noted Laboratory Results - last 24 hr 12/21/17 12/21/17 12/22/17 17:40 21:26 06:17 POC Glucometer 162 183 152 Active Medications Generic Name Dose Route Start Last Admin Trade Name Freq PRN Reason Stop Dose Admin Acetaminophen 650 mg 12/16/17 18:16 12/18/17 09:45 Tylenol - PO 650 mg Q6H PRN Administration FEVER Amlodipine Besylate 5 mg 12/20/17 13:22 12/22/17 10:20 Norvasc - PO 5 mg DAILY [facility] Administration Amoxicillin/Clavulanate Potassium 1 tab 12/22/17 08:00 12/22/17 08:01 Augmentin - 500mg Tablet PO 1 tab BID@0800,1730 [facility] Administration Aspirin 81 mg 12/16/17 10:00 12/22/17 10:00 Ecotrin - PO 81 mg DAILY [facility] Administration Atorvastatin Calcium 20 mg 12/16/17 22:00 12/21/17 21:39 Lipitor - PO 20 mg HS [facility] Administration Colchicine 0.6 mg 12/19/17 12:00 12/22/17 10:00 Colcrys - PO 0.6 mg DAILY [facility] Administration Gabapentin 300 mg 12/18/17 14:00 12/22/17 06:25 Neurontin - PO 300 mg TID [facility] Administration Heparin Sodium (Porcine) 5,000 unit 12/15/17 23:15 12/22/17 06:25 Heparin - SQ 5,000 unit TID [facility] Administration Insulin Aspart 1 vial 12/16/17 22:00 12/22/17 11:00 Novolog Vial Sliding Scale - SQ Not Given ACHS [facility] Protocol Lactobacillus Acidophilus 1 tab 12/19/17 10:15 12/22/17 10:00 Bacid - PO 1 tab DAILY [facility] Administration Losartan Potassium 50 mg 12/20/17 13:30 12/22/17 10:00 Cozaar - PO 50 mg DAILY [facility] Administration Metoprolol Succinate 100 mg 12/16/17 10:00 12/22/17 10:20 Toprol Xl - PO 100 mg DAILY [facility] Administration Terazosin HCl 2 mg 12/18/17 10:00 12/22/17 10:10 Hytrin - PO 2 mg DAILY [facility] Administration Microbiology 12/20/17 12:50 Stool Clostridium difficile Antigen ([facility]) - Final 12/20/17 12:50 Stool Clostridium difficile Toxin Assay - Final 12/15/17 17:47 Blood - Peripheral Venous Blood Culture - Final NO GROWTH AFTER 5 DAYS INCUBATION 12/15/17 17:47 Blood - Peripheral Venous Blood Culture - Final NO GROWTH AFTER 5 DAYS INCUBATION 12/15/17 20:01 Urine - Urine Clean Catch Urine Culture - Final ASSESSMENT/PLAN: 1) B/L Foot Cellulitis -continue zosyn day 7 - no leukocytosis is noted patient is afebrile - blood cultures and urine culture negative to date - MRI noted no evidence of osteomyelitis -ID (Dr Werner) consulted and followed 2) MS acute gout flare - uric acid elevated, patient was started on colchine with relief of symptoms 3) cardiovascular PAD - ultrasound reviewed, Dr Ortiz (vascular) consulted, patient will require outpatient follow up HTN -continue home meds -Terazosin 2mg PO Daily -Norvasc 5 mg PO Daily -Toprol XL 100 mg PO Daily - b/p at goal HLD -Lipitor 20 mg PO HS -ASA 81 4) 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 - New Patient This patient is new to me today: No - Critical Care Critical Care patient: No - Discharge Referral Referred to [facility] Med [facility] No
[2017-12-22 17:55] VITALS: BMI 29.8
[2017-12-22] MEDS ORDERED: FAMOTIDINE 20 MG TABLET PO SCH (22:00)
== END 2017-12-22 19:20 | DRG 863 ==
LOC: JER 17:06 → JERBED 19:32 → UNDOADMIN 19:32 → FM/S 22:56 → JERBED 12-17 08:30 → FM/S 12-17 13:39 → JERBED 12-17 13:39
PROVIDERS: ADMIT Internal Medicine; ATTEND Nurse Practitioner Family
DX: T81.40XA Infection following a procedure, unspecified, initial encounter (principal); L03.115 Cellulitis of right lower limb; N17.9 Acute kidney failure, unspecified; I13.0 Hypertensive heart and chronic kidney disease with heart failure and stage 1 through stage 4 chronic kidney disease, or unspecified chronic kidney disease; L03.116 Cellulitis of left lower limb; Y83.8 Other surgical procedures as the cause of abnormal reaction of the patient, or of later complication, without mention of misadventure at the time of the procedure; E11.65 Type 2 diabetes mellitus with hyperglycemia; E11.22 Type 2 diabetes mellitus with diabetic chronic kidney disease; E78.5 Hyperlipidemia, unspecified; I44.0 Atrioventricular block, first degree; Z87.891 Personal history of nicotine dependence; E86.0 Dehydration; Z79.84 Long term (current) use of oral hypoglycemic drugs; N40.0 Benign prostatic hyperplasia without lower urinary tract symptoms; N18.2 Chronic kidney disease, stage 2 (mild); I25.119 Atherosclerotic heart disease of native coronary artery with unspecified angina pectoris; Z96.651 Presence of right artificial knee joint; Z79.4 Long term (current) use of insulin; M10.9 Gout, unspecified; I73.9 Peripheral vascular disease, unspecified
CPT/HCPCS: 36415; 71046-TC-FY; 73630-TC-LT; 73630-TC-RT-FY; 73718-LT; 73718-TC; 80048; 80053; 81003; 82803; 82962; 83036; 83605; 83735; 84100; 84484; 84550; 85025; 85027; 85610; 85651; 85730; 86140; 87040; 87086; 87324; 87449; 93005; 93010; 93306-TC; 93925-TC; 97116-GP; 97162-GP; 99285-25; G0480; J1644; J7030

== ENCOUNTER 2020-10-17 18:23 | Inpatient (IN) | payer OTHER, MEDICARE ==
[2020-10-17] MEDS ORDERED: DIPHTH,PERTUSS(ACELL),TET 0.5 ML DISP.SYRIN IM ONE ×3 (19:15→19:46)
[2020-10-17] MEDS ORDERED: AMPICILLIN NA/SULBACTAM NA 3 GM in SODIUM CHLORIDE 100 ML IVPB ONE (19:15)
[2020-10-17 20:01] LABS: BASO % 0.5 % (0-2.0); EOS % 2.4 % (0-4.5); HEMATOCRIT 37.5 % (35.4-49); HEMOGLOBIN 12.7 GM/dL (11.7-16.9); LYMPH % 17.1 % (8-40); MCH 30.9 pg (25.7-33.7); MEAN CELL VOLUME 90.9 fl (80-96); MEAN PLT VOLUME 7.4 fl (7.5-11.1); MONO % 10.7 % (3.8-10.2); NEUT % 69.3 % (42.8-82.8); PLATELET COUNT 317 10^3/uL (134-434); RBC 4.13 M/mm3 (4.00-5.60); RDW 15.5 % (11.9-15.9); WHITE BLOOD COUNT 8.2 K/mm3 (4.0-10.0)
[2020-10-17 20:09] LABS: INR 1.08 (0.83-1.09); PROTHROMBIN TIME (PATIENT) 13.3 SEC (9.7-13.0)
[2020-10-17 20:12] LABS: ACTIVATED PTT 29.7 SECONDS (25.2-36.5)
[2020-10-17 20:18] LABS: CALCIUM 8.5 mg/dL (8.5-10.1)
[2020-10-17 20:19] LABS: ALBUMIN 3.4 g/dl (3.4-5.0); BLOOD UREA NITROGEN 29.6 mg/dL (7-18)
[2020-10-17 20:22] LABS: CREATININE 1.5 mg/dL (0.55-1.3)
[2020-10-17 20:24] LABS: BILIRUBIN,TOTAL 0.4 mg/dL (0.2-1)
[2020-10-17] MEDS ORDERED: LINEZOLID 600 MG TABLET (RESTRICTED TO ID) PO ONE (22:54)
[2020-10-17 23:21] LABS: EPI CELLS 3 /uL (0-25.1); HYALINE CASTS 0 /uL (0-3.1); PH,URINE 5.5 (5.0-8.0); URINE APPEARANCE CLEAR; URINE BACTERIA 161 /uL (0-1359); URINE BILIRUBIN NEGATIVE (NEGATIVE); URINE COLOR YELLOW; URINE GLUCOSE (UA) NEGATIVE (NEGATIVE); URINE KETONE NEGATIVE (NEGATIVE); URINE LEUK ESTERASE NEGATIVE (NEGATIVE); URINE NITRITE NEGATIVE (NEGATIVE); URINE PROTEIN 2+ (NEGATIVE); URINE RBC 5 /uL (0-23.9); URINE UROBILINOGEN 0.2 mg/dL (0.2-1.0); URINE WBC 3 /uL (0-25.8)
[2020-10-18] MEDS ORDERED: AMPICILLIN NA/SULBACTAM NA 3 GM in SODIUM CHLORIDE 100 ML IVPB ONE (01:15)
[2020-10-18] MEDS: AMPICILLIN NA/SULBACTAM NA 3 GM in SODIUM CHLORIDE 100 ML IVPB SCH ×2 (01:33→10:25)
[2020-10-18] MEDS ORDERED: amLODIPine BESYLATE 5 MG TABLET (FP) ONE (01:51)
[2020-10-18] MEDS: amLODIPine BESYLATE 5 MG TABLET (FP) PO SCH ×2 (02:08→22:48)
[2020-10-18] MEDS ORDERED: HEPARIN NA (PORCINE) 5,000 UNITS/ML 1ML VIAL ONE ×2 (06:01→13:14)
[2020-10-18] MEDS ORDERED: INSULIN SLIDING SCALE (NOVOLOG) 1 VIAL SQ ONE ×3 (06:02→17:58)
[2020-10-18 06:24] LABS: HEMOGLOBIN 12.3 GM/dL (11.7-16.9); MCHC 33.3 g/dl (32.0-35.9); MEAN CELL VOLUME 93.1 fl (80-96); MEAN PLT VOLUME 7.6 fl (7.5-11.1); PLATELET COUNT 316 10^3/uL (134-434); RBC 3.98 M/mm3 (4.00-5.60); RDW 15.3 % (11.9-15.9); WHITE BLOOD COUNT 7.5 K/mm3 (4.0-10.0)
[2020-10-18] MEDS: HEPARIN NA (PORCINE) 5,000 UNITS/ML 1ML VIAL SQ SCH ×3 (06:29→22:47)
[2020-10-18] MEDS: INSULIN SLIDING SCALE (NOVOLOG) 1 VIAL SQ SCH ×4 (06:29→22:48)
[2020-10-18 06:41] LABS: BLOOD UREA NITROGEN 26.7 mg/dL (7-18); CALCIUM 8.3 mg/dL (8.5-10.1); MAGNESIUM 2.2 mg/dL (1.8-2.4)
[2020-10-18 06:45] LABS: CREATININE 1.4 mg/dL (0.55-1.3); PHOSPHOROUS 3.1 mg/dL (2.5-4.9)
[2020-10-18] MEDS ORDERED: LOSARTAN POTASSIUM 50 MG TABLET ONE (10:21)
[2020-10-18] MEDS: TORSEMIDE 10 MG TABLET PO SCH (10:25)
[2020-10-18] MEDS: LOSARTAN POTASSIUM 50 MG TABLET PO SCH (10:25)
[2020-10-18] MEDS ORDERED: PT OWN MED DRAWER 7, Y5N ONE (13:13)
[2020-10-18] MEDS ORDERED: COLCHICINE 0.6 MG CAP PO PRN (17:04)
[2020-10-18] MEDS ORDERED: PIPERACILLIN/TAZOB 3.375 GM 3.375 GM/50 ML BAG IVPB ONE (17:28)
[2020-10-18] MEDS: PIPERACILLIN/TAZOB 3.375 GM 3.375 GM in DEXTROSE 5%-WATER - 50 ML IVPB SCH (18:01)
[2020-10-18] MEDS: SODIUM CHLORIDE 1,000 ML IV SCH (18:01)
[2020-10-18] MEDS: ATORVASTATIN CA 20 MG TABLET (FP) PO SCH (22:48)
[2020-10-19] MEDS ORDERED: DEXTROSE 5%-WATER - 50 ML IVPB ONE ×3 (01:05→17:35)
[2020-10-19] MEDS ORDERED: PIPERACILLIN/TAZOBACTAM 3.375 GM VIAL IVPB ONE ×3 (01:05→17:35)
[2020-10-19] MEDS: PIPERACILLIN/TAZOB 3.375 GM 3.375 GM in DEXTROSE 5%-WATER - 50 ML IVPB SCH ×3 (01:26→17:38)
[2020-10-19] MEDS: HEPARIN NA (PORCINE) 5,000 UNITS/ML 1ML VIAL SQ SCH ×3 (05:39→21:50)
[2020-10-19] MEDS: INSULIN SLIDING SCALE (NOVOLOG) 1 VIAL SQ SCH ×4 (06:23→21:51)
[2020-10-19] MEDS: SODIUM CHLORIDE 1,000 ML IV SCH ×3 (07:00→21:59)
[2020-10-19 09:06] LABS: BASO % 0.6 % (0-2.0); EOS % 4.8 % (0-4.5); HEMATOCRIT 39.3 % (35.4-49); HEMOGLOBIN 13.3 GM/dL (11.7-16.9); LYMPH % 17.9 % (8-40); MCH 31.2 pg (25.7-33.7); MCHC 33.8 g/dl (32.0-35.9); MEAN CELL VOLUME 92.3 fl (80-96); MEAN PLT VOLUME 7.6 fl (7.5-11.1); MONO % 9.2 % (3.8-10.2); NEUT % 67.5 % (42.8-82.8); PLATELET COUNT 375 10^3/uL (134-434); RBC 4.26 M/mm3 (4.00-5.60); RDW 15.5 % (11.9-15.9); WHITE BLOOD COUNT 7.1 K/mm3 (4.0-10.0)
[2020-10-19 09:32] LABS: ALBUMIN 3.4 g/dl (3.4-5.0); CALCIUM 8.6 mg/dL (8.5-10.1)
[2020-10-19 09:33] LABS: BLOOD UREA NITROGEN 27.3 mg/dL (7-18); MAGNESIUM 2.2 mg/dL (1.8-2.4)
[2020-10-19 09:35] LABS: BILIRUBIN,TOTAL 0.6 mg/dL (0.2-1); CREATININE 1.6 mg/dL (0.55-1.3); TOT PROT 8.3 g/dl (6.4-8.2)
[2020-10-19 09:36] LABS: PHOSPHOROUS 2.9 mg/dL (2.5-4.9)
[2020-10-19] MEDS ORDERED: PT OWN MED DRAWER 7, Y5N ONE (11:08)
[2020-10-19] MEDS: LOSARTAN POTASSIUM 50 MG TABLET PO SCH (11:10)
[2020-10-19] MEDS: ALLOPURINOL 100 MG TABLET (FP) PO SCH (11:10)
[2020-10-19] MEDS: TORSEMIDE 10 MG TABLET PO SCH (11:11)
[2020-10-19 18:41] VITALS: BMI 28.1
[2020-10-19] MEDS ORDERED: INSULIN (NOVOLOG) ASPART 100 UNITS/ML 10ML VIAL ONE (20:21)
[2020-10-19] MEDS: amLODIPine BESYLATE 5 MG TABLET (FP) PO SCH (21:51)
[2020-10-19] MEDS: ATORVASTATIN CA 20 MG TABLET (FP) PO SCH (21:51)
[2020-10-20] MEDS ORDERED: PIPERACILLIN/TAZOBACTAM 3.375 GM VIAL IVPB ONE ×3 (02:09→15:53)
[2020-10-20] MEDS ORDERED: DEXTROSE 5%-WATER - 50 ML IVPB ONE ×3 (02:09→15:53)
[2020-10-20] MEDS: PIPERACILLIN/TAZOB 3.375 GM 3.375 GM in DEXTROSE 5%-WATER - 50 ML IVPB SCH ×3 (02:28→19:03)
[2020-10-20] MEDS: HEPARIN NA (PORCINE) 5,000 UNITS/ML 1ML VIAL SQ SCH ×3 (06:01→21:48)
[2020-10-20] MEDS: INSULIN SLIDING SCALE (NOVOLOG) 1 VIAL SQ SCH ×4 (06:05→21:47)
[2020-10-20 09:55] LABS: BASO % 0.9 % (0-2.0); EOS % 7.6 % (0-4.5); HEMATOCRIT 40.7 % (35.4-49); HEMOGLOBIN 13.5 GM/dL (11.7-16.9); LYMPH % 24.2 % (8-40); MCH 30.9 pg (25.7-33.7); MCHC 33.2 g/dl (32.0-35.9); MEAN CELL VOLUME 93.1 fl (80-96); MEAN PLT VOLUME 7.6 fl (7.5-11.1); MONO % 11.3 % (3.8-10.2); PLATELET COUNT 365 10^3/uL (134-434); RBC 4.37 M/mm3 (4.00-5.60); RDW 15.8 % (11.9-15.9); WHITE BLOOD COUNT 6.9 K/mm3 (4.0-10.0)
[2020-10-20 10:28] LABS: CALCIUM 8.5 mg/dL (8.5-10.1)
[2020-10-20 10:29] LABS: ALBUMIN 3.3 g/dl (3.4-5.0); BLOOD UREA NITROGEN 23.6 mg/dL (7-18); MAGNESIUM 2.2 mg/dL (1.8-2.4)
[2020-10-20] MEDS: LOSARTAN POTASSIUM 50 MG TABLET PO SCH (10:29)
[2020-10-20] MEDS: TORSEMIDE 10 MG TABLET PO SCH (10:30)
[2020-10-20] MEDS: ALLOPURINOL 100 MG TABLET (FP) PO SCH (10:30)
[2020-10-20] MEDS: SODIUM CHLORIDE 1,000 ML IV SCH ×2 (10:31→15:59)
[2020-10-20 10:32] LABS: CREATININE 1.6 mg/dL (0.55-1.3); PHOSPHOROUS 2.9 mg/dL (2.5-4.9)
[2020-10-20 10:33] LABS: BILIRUBIN,TOTAL 0.5 mg/dL (0.2-1); TOT PROT 8.2 g/dl (6.4-8.2)
[2020-10-20] MEDS: amLODIPine BESYLATE 5 MG TABLET (FP) PO SCH (21:48)
[2020-10-20] MEDS: ATORVASTATIN CA 20 MG TABLET (FP) PO SCH (21:48)
[2020-10-21] MEDS ORDERED: PIPERACILLIN/TAZOBACTAM 3.375 GM VIAL IVPB ONE ×3 (02:32→17:03)
[2020-10-21] MEDS ORDERED: DEXTROSE 5%-WATER - 50 ML IVPB ONE ×3 (02:32→17:03)
[2020-10-21] MEDS: PIPERACILLIN/TAZOB 3.375 GM 3.375 GM in DEXTROSE 5%-WATER - 50 ML IVPB SCH ×3 (03:17→17:07)
[2020-10-21] MEDS: HEPARIN NA (PORCINE) 5,000 UNITS/ML 1ML VIAL SQ SCH ×3 (05:36→21:25)
[2020-10-21] MEDS: INSULIN SLIDING SCALE (NOVOLOG) 1 VIAL SQ SCH ×4 (06:21→21:21)
[2020-10-21 08:31] LABS: BASO % 0.9 % (0-2.0); EOS % 7.9 % (0-4.5); HEMATOCRIT 38.4 % (35.4-49); LYMPH % 19.5 % (8-40); MCH 31.2 pg (25.7-33.7); MCHC 33.8 g/dl (32.0-35.9); MEAN CELL VOLUME 92.4 fl (80-96); MEAN PLT VOLUME 7.5 fl (7.5-11.1); MONO % 10.7 % (3.8-10.2); PLATELET COUNT 375 10^3/uL (134-434); RBC 4.16 M/mm3 (4.00-5.60); RDW 15.7 % (11.9-15.9); WHITE BLOOD COUNT 6.1 K/mm3 (4.0-10.0)
[2020-10-21 08:55] LABS: ALBUMIN 3.2 g/dl (3.4-5.0); BLOOD UREA NITROGEN 23.4 mg/dL (7-18); CALCIUM 8.5 mg/dL (8.5-10.1); MAGNESIUM 2.2 mg/dL (1.8-2.4)
[2020-10-21 08:58] LABS: CREATININE 1.8 mg/dL (0.55-1.3)
[2020-10-21 08:59] LABS: PHOSPHOROUS 2.8 mg/dL (2.5-4.9)
[2020-10-21 09:00] LABS: BILIRUBIN,TOTAL 0.6 mg/dL (0.2-1); TOT PROT 7.8 g/dl (6.4-8.2)
[2020-10-21] MEDS: ALLOPURINOL 100 MG TABLET (FP) PO SCH (09:12)
[2020-10-21] MEDS: LOSARTAN POTASSIUM 50 MG TABLET PO SCH (09:12)
[2020-10-21] MEDS: TORSEMIDE 10 MG TABLET PO SCH (09:12)
[2020-10-21] MEDS: amLODIPine BESYLATE 5 MG TABLET (FP) PO SCH (21:25)
[2020-10-21] MEDS: ATORVASTATIN CA 20 MG TABLET (FP) PO SCH (21:25)
[2020-10-22] MEDS: HEPARIN NA (PORCINE) 5,000 UNITS/ML 1ML VIAL SQ SCH ×2 (06:45→13:48)
[2020-10-22] MEDS: INSULIN SLIDING SCALE (NOVOLOG) 1 VIAL SQ SCH ×4 (06:46→17:24)
[2020-10-22 06:51] VITALS: BP 153/75; PULSE 61; TEMP 97.6
[2020-10-22] MEDS ORDERED: AMOX TR/POT CLAV 875MG/125MG TABLETS (FP) PO SCH (08:00)
[2020-10-22 08:49] LABS: BASO % 0.8 % (0-2.0); EOS % 7.4 % (0-4.5); HEMATOCRIT 37.7 % (35.4-49); HEMOGLOBIN 12.9 GM/dL (11.7-16.9); LYMPH % 19.5 % (8-40); MCH 31.3 pg (25.7-33.7); MCHC 34.1 g/dl (32.0-35.9); MEAN PLT VOLUME 7.4 fl (7.5-11.1); MONO % 10.1 % (3.8-10.2); NEUT % 62.2 % (42.8-82.8); PLATELET COUNT 367 10^3/uL (134-434); RDW 15.6 % (11.9-15.9); WHITE BLOOD COUNT 7.2 K/mm3 (4.0-10.0)
[2020-10-22] MEDS ORDERED: LACTATED RINGERS SOLUTION 1,000 ML/1,000 ML INFUS.BAG IV SCH (09:15)
[2020-10-22] MEDS: LOSARTAN POTASSIUM 50 MG TABLET PO SCH (09:36)
[2020-10-22] MEDS: ALLOPURINOL 100 MG TABLET (FP) PO SCH (09:36)
[2020-10-22 10:47] LABS: CALCIUM 8.7 mg/dL (8.5-10.1)
[2020-10-22 10:48] LABS: ALBUMIN 3.2 g/dl (3.4-5.0); BLOOD UREA NITROGEN 26.7 mg/dL (7-18); MAGNESIUM 2.3 mg/dL (1.8-2.4)
[2020-10-22 10:51] LABS: CREATININE 1.7 mg/dL (0.55-1.3)
[2020-10-22 10:52] LABS: BILIRUBIN,TOTAL 0.3 mg/dL (0.2-1); TOT PROT 7.7 g/dl (6.4-8.2)
[2020-10-22] MEDS ORDERED: TERAZOSIN HCL 5 MG CAPSULE PO SCH (12:15)
== END 2020-10-22 17:42 | disposition home or self-care (01) | DRG 605 ==
LOC: JER 18:23 → JERBED 23:43 → J8W 10-18 22:40
PROVIDERS: ADMIT Internal Medicine; ATTEND Internal Medicine
DX: S91.351A Open bite, right foot, initial encounter (principal); L03.115 Cellulitis of right lower limb; I13.0 Hypertensive heart and chronic kidney disease with heart failure and stage 1 through stage 4 chronic kidney disease, or unspecified chronic kidney disease; I25.10 Atherosclerotic heart disease of native coronary artery without angina pectoris; E78.5 Hyperlipidemia, unspecified; I25.2 Old myocardial infarction; Z96.651 Presence of right artificial knee joint; F03.90 Unspecified dementia, unspecified severity, without behavioral disturbance, psychotic disturbance, mood disturbance, and anxiety; B96.89 Other specified bacterial agents as the cause of diseases classified elsewhere; E11.22 Type 2 diabetes mellitus with diabetic chronic kidney disease; N18.9 Chronic kidney disease, unspecified; I50.9 Heart failure, unspecified; N40.0 Benign prostatic hyperplasia without lower urinary tract symptoms; W55.01XA Bitten by cat, initial encounter; Y92.098 Other place in other non-institutional residence as the place of occurrence of the external cause
CPT/HCPCS: 36415; 71045-TC-FY; 73630-TC-RT-FY; 73701-TC-RT; 80048; 80053; 81003; 82962; 83036; 83605; 83735; 84100; 84155; 84165; 85025; 85027; 85610; 85730; 86850; 86900; 86901; 87040; 87070; 87076; 87077; 87081; 87205; 90715; 93005; 93010; 99285-25; C9803; J1644; Q9967; U0003; U0005

== ENCOUNTER 2021-09-04 21:31 | Inpatient (IN) | payer OTHER ==
[2021-09-04] MEDS ORDERED: FUROSEMIDE 40 MG/4 ML INJECTABLE VIAL IVPUSH ONE (22:17)
[2021-09-04 23:36] LABS: EOS % 6.8 % (0-4.5); HEMATOCRIT 34.5 % (35.4-49); HEMOGLOBIN 11.5 GM/dL (11.7-16.9); LYMPH % 19.8 % (8-40); MCH 29.9 pg (25.7-33.7); MCHC 33.5 g/dl (32.0-35.9); MEAN CELL VOLUME 89.4 fl (80-96); MEAN PLT VOLUME 7.2 fl (7.5-11.1); MONO % 10.3 % (3.8-10.2); NEUT % 62.1 % (42.8-82.8); PLATELET COUNT 282 10^3/uL (134-434); RBC 3.86 M/mm3 (4.00-5.60); RDW 14.1 % (11.9-15.9)
[2021-09-05] MEDS ORDERED: FUROSEMIDE 40 MG/4 ML INJECTABLE VIAL ONE (00:01)
[2021-09-05 00:06] LABS: ALBUMIN 3.5 g/dl (3.4-5.0); BLOOD UREA NITROGEN 75.6 mg/dL (7-18); CALCIUM 8.8 mg/dL (8.5-10.1)
[2021-09-05 00:09] LABS: CREATININE 2.7 mg/dL (0.55-1.3)
[2021-09-05 00:11] LABS: BILIRUBIN,TOTAL 0.3 mg/dL (0.2-1); TOT PROT 7.9 g/dl (6.4-8.2)
[2021-09-05] MEDS ORDERED: POLYETHYLENE GLYCOL (HEALTHYLAX) 3350 17 GM PACKET PO PRN (00:54)
[2021-09-05] MEDS ORDERED: ACETAMINOPHEN 325 MG TABLET (FP) PO PRN (00:54)
[2021-09-05] MEDS ORDERED: SODIUM CHLORIDE 1,000 ML IV SCH (01:00)
[2021-09-05] MEDS ORDERED: HEPARIN NA (PORCINE) 5,000 UNITS/ML 1ML VIAL ONE ×3 (05:05→18:15)
[2021-09-05] MEDS ORDERED: SENNOSIDES 8.6MG TABLET (FP) PO PRN (05:15)
[2021-09-05] MEDS ORDERED: METOPROLOL TARTRATE 50 MG TABLET (FP) PO ONE (05:19)
[2021-09-05] MEDS: HEPARIN NA (PORCINE) 5,000 UNITS/ML 1ML VIAL SQ SCH ×3 (05:25→18:27)
[2021-09-05 07:26] LABS: BLOOD UREA NITROGEN 78.6 mg/dL (7-18); MAGNESIUM 2.7 mg/dL (1.8-2.4)
[2021-09-05 07:29] LABS: CREATININE 2.7 mg/dL (0.55-1.3)
[2021-09-05] MEDS: INSULIN SLIDING SCALE (NOVOLOG) 1 VIAL SQ SCH ×4 (07:41→21:25)
[2021-09-05] MEDS ORDERED: amLODIPine BESYLATE 5 MG TABLET (FP) PO SCH (10:00)
[2021-09-05] MEDS ORDERED: LOSARTAN POTASSIUM 50 MG TABLET ONE (10:33)
[2021-09-05] MEDS: LOSARTAN POTASSIUM 50 MG TABLET PO SCH (10:43)
[2021-09-05] MEDS: FINASTERIDE 5 MG TABLET (FP) PO SCH (10:43)
[2021-09-05] MEDS: TERAZOSIN HCL 5 MG CAPSULE PO SCH (10:43)
[2021-09-05] MEDS: TORSEMIDE 10 MG TABLET PO SCH (10:43)
[2021-09-05] MEDS: ALLOPURINOL 100 MG TABLET (FP) PO SCH (10:44)
[2021-09-05] MEDS ORDERED: ATORVASTATIN CA 20 MG TABLET (FP) PO SCH (22:00)
[2021-09-06] MEDS: HEPARIN NA (PORCINE) 5,000 UNITS/ML 1ML VIAL SQ SCH ×2 (02:58→10:18)
[2021-09-06 04:08] VITALS: BMI 30.3
[2021-09-06] MEDS: INSULIN SLIDING SCALE (NOVOLOG) 1 VIAL SQ SCH ×2 (06:10→11:32)
[2021-09-06 08:32] LABS: INR 1.09 (0.83-1.09); PROTHROMBIN TIME (PATIENT) 12.5 SEC (9.7-13.0)
[2021-09-06 08:35] LABS: ACTIVATED PTT 31.7 SECONDS (25.2-36.5)
[2021-09-06] MEDS: TORSEMIDE 10 MG TABLET PO SCH (10:17)
[2021-09-06] MEDS: LOSARTAN POTASSIUM 50 MG TABLET PO SCH (10:17)
[2021-09-06] MEDS: ALLOPURINOL 100 MG TABLET (FP) PO SCH (10:17)
[2021-09-06] MEDS: FINASTERIDE 5 MG TABLET (FP) PO SCH (10:17)
[2021-09-06] MEDS: TERAZOSIN HCL 5 MG CAPSULE PO SCH (10:18)
[2021-09-06 15:21] VITALS: BP 130/72; PULSE 76; TEMP 97.9
== END 2021-09-06 16:05 | disposition home or self-care (01) | DRG 641 ==
LOC: JER 21:31 → JERBED 09-05 00:40 → J8W 09-05 20:14
PROVIDERS: ADMIT Hospitalist; ATTEND Family Medicine
DX: E87.70 Fluid overload, unspecified (principal); N17.9 Acute kidney failure, unspecified; I13.0 Hypertensive heart and chronic kidney disease with heart failure and stage 1 through stage 4 chronic kidney disease, or unspecified chronic kidney disease; I50.32 Chronic diastolic (congestive) heart failure; E78.5 Hyperlipidemia, unspecified; M10.9 Gout, unspecified; I50.9 Heart failure, unspecified; I87.2 Venous insufficiency (chronic) (peripheral); E11.22 Type 2 diabetes mellitus with diabetic chronic kidney disease; N18.9 Chronic kidney disease, unspecified; F03.90 Unspecified dementia, unspecified severity, without behavioral disturbance, psychotic disturbance, mood disturbance, and anxiety; I25.2 Old myocardial infarction; I25.10 Atherosclerotic heart disease of native coronary artery without angina pectoris; R00.1 Bradycardia, unspecified; I44.0 Atrioventricular block, first degree; T46.1X5A Adverse effect of calcium-channel blockers, initial encounter
CPT/HCPCS: 36415; 71045-TC-FY; 76775-TC; 80048; 80053; 82962; 83735; 83880; 84443; 85025; 85610; 85730; 93005; 93010; 93970-TC; 97116-GP; 97161-GP; 99285-25; C9803-CS; J1644; U0003; U0005

== ENCOUNTER 2022-10-08 00:42 | Emergency (ER) | payer OTHER ==
[2022-10-08 01:09] VITALS: TEMP 98.8; BMI 28.7
[2022-10-08 04:03] VITALS: BP 124/66; PULSE 76; RESP 16
== END 2022-10-08 04:14 | disposition home or self-care (01) ==
LOC: JER 00:42
DX: M25.519 Pain in unspecified shoulder (principal); R51.9 Headache, unspecified; W05.0XXA Fall from non-moving wheelchair, initial encounter; Y93.89 Activity, other specified; Y92.9 Unspecified place or not applicable
CPT/HCPCS: 70450-TC; 72125-TC; 99284-25

== ENCOUNTER 2022-10-10 11:45 | Inpatient (IN) | payer OTHER ==
[2022-10-10] MEDS ORDERED: ACETAMINOPHEN INJECTION 100 ML IVPB ONE ×2 (12:40→22:09)
[2022-10-10] MEDS ORDERED: PIPERACILLIN/TAZOB 4.5 GM 4.5 GM/100 ML BAG IVPB ONE (12:55)
[2022-10-10 13:03] LABS: HEMATOCRIT 42.2 % (35.4-49); HEMOGLOBIN 13.5 GM/dL (11.7-16.9); MCH 29.2 pg (25.7-33.7); MEAN CELL VOLUME 91.4 fl (80-96); MEAN PLT VOLUME 9.2 fl (7.5-11.1); PLATELET COUNT 331 10^3/uL (134-434); RBC 4.61 M/mm3 (4.00-5.60); RDW 16.3 % (11.9-15.9); WHITE BLOOD COUNT 11.2 K/mm3 (4.0-10.0)
[2022-10-10] MEDS ORDERED: LACTATED RINGERS SOLUTION 1000 ML INFUS.BAG IV ONE (13:05)
[2022-10-10 13:06] LABS: VENOUS BASE EXCESS -2.6 mmol/L (-2-2); VENOUS PCO2 43.8 mmHg (38-52); VENOUS PH 7.343 (7.310-7.410)
[2022-10-10] MEDS ORDERED: ACETAMINOPHEN 1000 MG/100 ML BAG IVPB ONE ×2 (13:08→13:12)
[2022-10-10] MEDS ORDERED: PIPERACILLIN/TAZOB 4.5 GM 4.5 GM in DEXTROSE 5%-WATER 100 ML IVPB ONE (13:09)
[2022-10-10 13:35] LABS: EPI CELLS 4 /uL (0-25.1); HYALINE CASTS 1 /uL (0-3.1); PH,URINE 5.5 (5.0-8.0); URINE APPEARANCE CLOUDY; URINE BACTERIA >9,000 /uL (0-1359); URINE BILIRUBIN NEGATIVE (NEGATIVE); URINE COLOR YELLOW; URINE GLUCOSE (UA) 2+ (NEGATIVE); URINE KETONE NEGATIVE (NEGATIVE); URINE LEUK ESTERASE 3+ (NEGATIVE); URINE NITRITE NEGATIVE (NEGATIVE); URINE PROTEIN 2+ (NEGATIVE); URINE RBC 25 /uL (0-23.9); URINE UROBILINOGEN 0.2 mg/dL (0.2-1.0); URINE WBC 2529 /uL (0-25.8)
[2022-10-10 13:45] LABS: POTASSIUM 4.3 mmol/L (3.5-5.1)
[2022-10-10 13:47] LABS: CALCIUM 9.2 mg/dL (8.5-10.1)
[2022-10-10 13:48] LABS: ALBUMIN 3.1 g/dl (3.4-5.0); BLOOD UREA NITROGEN 83.6 mg/dL (7-18)
[2022-10-10 13:51] LABS: CREATININE 3.3 mg/dL (0.55-1.3)
[2022-10-10 13:53] LABS: BILIRUBIN,TOTAL 0.7 mg/dL (0.2-1); TOT PROT 8.4 g/dl (6.4-8.2)
[2022-10-10 14:09] LABS: ANISOCYTOSIS 0; MACROCYTOSIS 0
[2022-10-10 14:20] LABS: LACTIC ACID 3.6 mmol/L (0.4-2.0)
[2022-10-10] MEDS ORDERED: SODIUM CHLORIDE 0.9% 500 ML INFUS.BAG IV ONE ×2 (14:27→19:03)
[2022-10-10 14:57] LABS: INR 1.18 (0.83-1.09); PROTHROMBIN TIME (PATIENT) 13.7 SEC (9.7-13.0)
[2022-10-10 15:00] LABS: ACTIVATED PTT 28.9 SECONDS (25.2-36.5)
[2022-10-10] MEDS ORDERED: dilTIAZem HCL 50 MG/10 ML - 10 ML VIAL IVPUSH ONE (19:00)
[2022-10-10] MEDS ORDERED: dilTIAZem HCL 30 MG TABLET PO ONE (19:01)
[2022-10-10] MEDS ORDERED: dilTIAZem HCL 125 MG/25 ML - 25 ML VIAL ONE (19:04)
[2022-10-10] MEDS ORDERED: dilTIAZem HCL 30 MG TABLET ONE (19:07)
[2022-10-10] MEDS ORDERED: APIXABAN 2.5 MG TABLET PO ONE (19:17)
[2022-10-10] MEDS ORDERED: APIXABAN 2.5 MG TABLET ONE (19:30)
[2022-10-10] MEDS ORDERED: ATORVASTATIN CA 20 MG TABLET (FP) ONE (22:09)
[2022-10-10] MEDS: ATORVASTATIN CA 20 MG TABLET (FP) PO SCH (22:21)
[2022-10-10] MEDS: ACETAMINOPHEN 1000 MG/100 ML BAG IVPB PRN (22:21)
[2022-10-10] MEDS: INSULIN SLIDING SCALE (NOVOLOG) 1 VIAL SQ SCH (22:48)
[2022-10-10] MEDS: APIXABAN 2.5 MG TABLET PO SCH (22:48)
[2022-10-10] MEDS: SODIUM CHLORIDE 0.9%/KCL 20 MEQ/1,000 ML INFUS.BAG IV SCH (23:15)
[2022-10-10] MEDS: PIPERACILLIN/TAZOB 3.375 GM 3.375 GM in DEXTROSE 5%-WATER - 50 ML IVPB SCH (23:15)
[2022-10-11] MEDS: PIPERACILLIN/TAZOB 3.375 GM 3.375 GM in DEXTROSE 5%-WATER - 50 ML IVPB SCH ×3 (06:19→22:36)
[2022-10-11] MEDS: INSULIN SLIDING SCALE (NOVOLOG) 1 VIAL SQ SCH ×4 (06:25→22:35)
[2022-10-11 07:53] LABS: HEMATOCRIT 36.7 % (35.4-49); HEMOGLOBIN 11.8 GM/dL (11.7-16.9); MCH 29.3 pg (25.7-33.7); MCHC 32.1 g/dl (32.0-35.9); MEAN CELL VOLUME 91.2 fl (80-96); MEAN PLT VOLUME 8.9 fl (7.5-11.1); PLATELET COUNT 283 10^3/uL (134-434); RBC 4.03 M/mm3 (4.00-5.60); RDW 16.2 % (11.9-15.9); WHITE BLOOD COUNT 10.8 K/mm3 (4.0-10.0)
[2022-10-11 08:04] LABS: POTASSIUM 4.3 mmol/L (3.5-5.1)
[2022-10-11 08:10] LABS: CALCIUM 8.3 mg/dL (8.5-10.1)
[2022-10-11 08:11] LABS: BLOOD UREA NITROGEN 64.1 mg/dL (7-18); MAGNESIUM 2.4 mg/dL (1.8-2.4)
[2022-10-11 08:13] LABS: CREATININE 2.6 mg/dL (0.55-1.3)
[2022-10-11 08:14] LABS: BILIRUBIN,TOTAL 0.6 mg/dL (0.2-1); PHOSPHOROUS 2.8 mg/dL (2.5-4.9)
[2022-10-11 08:15] LABS: ALBUMIN 2.4 g/dl (3.4-5.0); TOT PROT 6.4 g/dl (6.4-8.2)
[2022-10-11] MEDS: APIXABAN 2.5 MG TABLET PO SCH ×2 (10:40→22:35)
[2022-10-11] MEDS: amLODIPine BESYLATE 10 MG TABLET (FP) PO SCH (10:40)
[2022-10-11] MEDS: FINASTERIDE 5 MG TABLET (FP) PO SCH (10:40)
[2022-10-11] MEDS: LOSARTAN POTASSIUM 50 MG TABLET PO SCH (10:40)
[2022-10-11] MEDS: SODIUM CHLORIDE 0.9%/KCL 20 MEQ/1,000 ML INFUS.BAG IV SCH ×2 (15:21→21:45)
[2022-10-11] MEDS: ACETAMINOPHEN 1000 MG/100 ML BAG IVPB PRN (15:59)
[2022-10-11] MEDS ORDERED: INSULIN (NOVOLOG) ASPART 100 UNITS/ML 10ML VIAL ONE (22:23)
[2022-10-11] MEDS: ATORVASTATIN CA 20 MG TABLET (FP) PO SCH (22:35)
[2022-10-12] MEDS: PIPERACILLIN/TAZOB 3.375 GM 3.375 GM in DEXTROSE 5%-WATER - 50 ML IVPB SCH ×3 (05:27→23:31)
[2022-10-12] MEDS ORDERED: INSULIN (NOVOLOG) ASPART 100 UNITS/ML 10ML VIAL ONE ×2 (06:23→16:47)
[2022-10-12] MEDS: INSULIN SLIDING SCALE (NOVOLOG) 1 VIAL SQ SCH ×4 (06:50→23:30)
[2022-10-12] MEDS: LOSARTAN POTASSIUM 50 MG TABLET PO SCH (09:29)
[2022-10-12] MEDS: APIXABAN 2.5 MG TABLET PO SCH ×2 (09:30→23:29)
[2022-10-12] MEDS: amLODIPine BESYLATE 10 MG TABLET (FP) PO SCH (09:30)
[2022-10-12] MEDS: FINASTERIDE 5 MG TABLET (FP) PO SCH (09:30)
[2022-10-12] MEDS: ACETAMINOPHEN 325 MG TABLET (FP) PO PRN (17:34)
[2022-10-12] MEDS: ATORVASTATIN CA 20 MG TABLET (FP) PO SCH (23:29)
[2022-10-13] MEDS: INSULIN SLIDING SCALE (NOVOLOG) 1 VIAL SQ SCH ×4 (06:12→22:19)
[2022-10-13] MEDS: PIPERACILLIN/TAZOB 3.375 GM 3.375 GM in DEXTROSE 5%-WATER - 50 ML IVPB SCH ×2 (06:32→13:10)
[2022-10-13 08:12] LABS: HEMATOCRIT 34.6 % (35.4-49); HEMOGLOBIN 11.5 GM/dL (11.7-16.9); MCH 29.7 pg (25.7-33.7); MCHC 33.2 g/dl (32.0-35.9); MEAN CELL VOLUME 89.4 fl (80-96); MEAN PLT VOLUME 8.3 fl (7.5-11.1); PLATELET COUNT 360 10^3/uL (134-434); RBC 3.87 M/mm3 (4.00-5.60); RDW 16.3 % (11.9-15.9); WHITE BLOOD COUNT 10.4 K/mm3 (4.0-10.0)
[2022-10-13 08:36] LABS: BLOOD UREA NITROGEN 47.3 mg/dL (7-18); CALCIUM 8.1 mg/dL (8.5-10.1); CREATININE 2.1 mg/dL (0.55-1.3)
[2022-10-13 08:38] LABS: TOT PROT 6.1 g/dl (6.4-8.2)
[2022-10-13 08:44] LABS: BILIRUBIN,TOTAL 0.4 mg/dL (0.2-1)
[2022-10-13 09:24] LABS: ANISOCYTOSIS 0; HELMET CELLS 0; HOWELL-JOLLY BODIES 0; MACROCYTOSIS 0; OVALOCYTE 0; ROULEAU 0; SICKELED CELLS 0; TARGET CELLS 0; TEAR DROP CELLS 0; TOXIC GRANULATION 0
[2022-10-13] MEDS: FINASTERIDE 5 MG TABLET (FP) PO SCH (11:06)
[2022-10-13] MEDS: LOSARTAN POTASSIUM 50 MG TABLET PO SCH (11:07)
[2022-10-13] MEDS: amLODIPine BESYLATE 10 MG TABLET (FP) PO SCH (11:07)
[2022-10-13] MEDS: APIXABAN 2.5 MG TABLET PO SCH ×2 (11:07→22:08)
[2022-10-13] MEDS: ACETAMINOPHEN 325 MG TABLET (FP) PO PRN (11:07)
[2022-10-13] MEDS ORDERED: CEFTRIAXONE 2 GM-D5W BAG 2 GM/50 ML BAG IVPB SCH (15:30)
[2022-10-13] MEDS: CEFTRIAXONE 2 GM in DEXTROSE 5%-WATER 100 ML IVPB SCH (15:58)
[2022-10-13] MEDS ORDERED: INSULIN (NOVOLOG) ASPART 100 UNITS/ML 10ML VIAL ONE ×2 (17:32→22:18)
[2022-10-13] MEDS: ATORVASTATIN CA 20 MG TABLET (FP) PO SCH (22:08)
[2022-10-14] MEDS: INSULIN SLIDING SCALE (NOVOLOG) 1 VIAL SQ SCH ×4 (06:30→21:39)
[2022-10-14] MEDS: CEFTRIAXONE 2 GM in DEXTROSE 5%-WATER 100 ML IVPB SCH (10:56)
[2022-10-14] MEDS: APIXABAN 2.5 MG TABLET PO SCH ×2 (10:56→21:32)
[2022-10-14] MEDS: LOSARTAN POTASSIUM 50 MG TABLET PO SCH (10:56)
[2022-10-14] MEDS: amLODIPine BESYLATE 10 MG TABLET (FP) PO SCH (10:56)
[2022-10-14] MEDS: FINASTERIDE 5 MG TABLET (FP) PO SCH (10:56)
[2022-10-14] MEDS: ATORVASTATIN CA 20 MG TABLET (FP) PO SCH (21:32)
[2022-10-14] MEDS: ACETAMINOPHEN 325 MG TABLET (FP) PO PRN (22:00)
[2022-10-15] MEDS: INSULIN SLIDING SCALE (NOVOLOG) 1 VIAL SQ SCH ×4 (06:26→22:10)
[2022-10-15 07:56] LABS: BASO % 0.4 % (0-2.0); EOS % 1.7 % (0-4.5); HEMATOCRIT 36.9 % (35.4-49); HEMOGLOBIN 11.8 GM/dL (11.7-16.9); LYMPH % 8.7 % (8-40); MCH 29.2 pg (25.7-33.7); MEAN CELL VOLUME 91.1 fl (80-96); MEAN PLT VOLUME 8.5 fl (7.5-11.1); NEUT % 79.2 % (42.8-82.8); PLATELET COUNT 467 10^3/uL (134-434); RBC 4.05 M/mm3 (4.00-5.60); RDW 16.6 % (11.9-15.9); WHITE BLOOD COUNT 12.2 K/mm3 (4.0-10.0)
[2022-10-15 08:40] LABS: POTASSIUM 4.8 mmol/L (3.5-5.1)
[2022-10-15 08:48] LABS: ALBUMIN 2.1 g/dl (3.4-5.0); BLOOD UREA NITROGEN 35.7 mg/dL (7-18); CALCIUM 8.3 mg/dL (8.5-10.1)
[2022-10-15 08:49] LABS: CREATININE 1.7 mg/dL (0.55-1.3)
[2022-10-15 08:51] LABS: BILIRUBIN,TOTAL 0.3 mg/dL (0.2-1)
[2022-10-15] MEDS: FINASTERIDE 5 MG TABLET (FP) PO SCH (09:01)
[2022-10-15] MEDS: amLODIPine BESYLATE 10 MG TABLET (FP) PO SCH (09:01)
[2022-10-15] MEDS: APIXABAN 2.5 MG TABLET PO SCH ×2 (09:01→22:11)
[2022-10-15] MEDS: LOSARTAN POTASSIUM 50 MG TABLET PO SCH (09:01)
[2022-10-15] MEDS: CEFTRIAXONE 2 GM in DEXTROSE 5%-WATER 100 ML IVPB SCH (09:01)
[2022-10-15] MEDS ORDERED: INSULIN (NOVOLOG) ASPART 100 UNITS/ML 10ML VIAL ONE ×2 (17:44→21:37)
[2022-10-15] MEDS: ACETAMINOPHEN 325 MG TABLET (FP) PO PRN (17:47)
[2022-10-15] MEDS: ATORVASTATIN CA 20 MG TABLET (FP) PO SCH (22:10)
[2022-10-16] MEDS: INSULIN SLIDING SCALE (NOVOLOG) 1 VIAL SQ SCH ×4 (06:05→21:54)
[2022-10-16 07:45] LABS: BASO % 0.9 % (0-2.0); EOS % 1.8 % (0-4.5); HEMATOCRIT 36.7 % (35.4-49); HEMOGLOBIN 11.9 GM/dL (11.7-16.9); MCH 29.5 pg (25.7-33.7); MCHC 32.5 g/dl (32.0-35.9); MEAN CELL VOLUME 90.8 fl (80-96); MEAN PLT VOLUME 8.5 fl (7.5-11.1); MONO % 8.7 % (3.8-10.2); NEUT % 77.6 % (42.8-82.8); PLATELET COUNT 486 10^3/uL (134-434); RBC 4.04 M/mm3 (4.00-5.60); RDW 16.3 % (11.9-15.9); WHITE BLOOD COUNT 12.4 K/mm3 (4.0-10.0)
[2022-10-16] MEDS: APIXABAN 2.5 MG TABLET PO SCH ×2 (10:34→21:45)
[2022-10-16] MEDS: CEFTRIAXONE 2 GM in DEXTROSE 5%-WATER 100 ML IVPB SCH (10:34)
[2022-10-16] MEDS: amLODIPine BESYLATE 10 MG TABLET (FP) PO SCH (10:34)
[2022-10-16] MEDS: FINASTERIDE 5 MG TABLET (FP) PO SCH (10:34)
[2022-10-16] MEDS: LOSARTAN POTASSIUM 50 MG TABLET PO SCH (10:34)
[2022-10-16] MEDS ORDERED: INSULIN (NOVOLOG) ASPART 100 UNITS/ML 10ML VIAL ONE ×3 (13:12→21:53)
[2022-10-16 15:22] VITALS: BMI 30.7
[2022-10-16] MEDS: ATORVASTATIN CA 20 MG TABLET (FP) PO SCH (21:45)
[2022-10-16] MEDS: ACETAMINOPHEN 325 MG TABLET (FP) PO PRN (21:45)
[2022-10-17] MEDS: INSULIN SLIDING SCALE (NOVOLOG) 1 VIAL SQ SCH ×4 (06:26→22:00)
[2022-10-17 07:43] LABS: BASO % 0.5 % (0-2.0); EOS % 1.9 % (0-4.5); HEMATOCRIT 36.5 % (35.4-49); HEMOGLOBIN 12.3 GM/dL (11.7-16.9); LYMPH % 11.7 % (8-40); MCH 30.2 pg (25.7-33.7); MCHC 33.8 g/dl (32.0-35.9); MEAN CELL VOLUME 89.4 fl (80-96); MONO % 9.4 % (3.8-10.2); NEUT % 76.5 % (42.8-82.8); PLATELET COUNT 514 10^3/uL (134-434); RBC 4.08 M/mm3 (4.00-5.60); RDW 16.4 % (11.9-15.9); WHITE BLOOD COUNT 10.8 K/mm3 (4.0-10.0)
[2022-10-17 08:05] LABS: POTASSIUM 5.1 mmol/L (3.5-5.1)
[2022-10-17 08:06] LABS: CALCIUM 8.4 mg/dL (8.5-10.1)
[2022-10-17 08:07] LABS: ALBUMIN 2.2 g/dl (3.4-5.0)
[2022-10-17 08:10] LABS: CREATININE 1.6 mg/dL (0.55-1.3)
[2022-10-17 08:12] LABS: BILIRUBIN,TOTAL 0.3 mg/dL (0.2-1); TOT PROT 7.3 g/dl (6.4-8.2)
[2022-10-17] MEDS: FINASTERIDE 5 MG TABLET (FP) PO SCH (10:10)
[2022-10-17] MEDS: amLODIPine BESYLATE 10 MG TABLET (FP) PO SCH (10:10)
[2022-10-17] MEDS: APIXABAN 2.5 MG TABLET PO SCH ×2 (10:10→22:01)
[2022-10-17] MEDS: CEFTRIAXONE 2 GM in DEXTROSE 5%-WATER 100 ML IVPB SCH (10:10)
[2022-10-17] MEDS: LOSARTAN POTASSIUM 50 MG TABLET PO SCH (10:10)
[2022-10-17] MEDS: ATORVASTATIN CA 20 MG TABLET (FP) PO SCH (22:00)
[2022-10-18] MEDS: INSULIN SLIDING SCALE (NOVOLOG) 1 VIAL SQ SCH ×2 (06:15→11:52)
[2022-10-18] MEDS: FINASTERIDE 5 MG TABLET (FP) PO SCH (09:00)
[2022-10-18] MEDS: amLODIPine BESYLATE 10 MG TABLET (FP) PO SCH (09:02)
[2022-10-18] MEDS: APIXABAN 2.5 MG TABLET PO SCH (09:02)
[2022-10-18] MEDS: LOSARTAN POTASSIUM 50 MG TABLET PO SCH (09:02)
[2022-10-18] MEDS: CEFTRIAXONE 2 GM in DEXTROSE 5%-WATER 100 ML IVPB SCH (09:03)
[2022-10-18 10:25] VITALS: BP 144/70; PULSE 80; RESP 18; TEMP 97.8
== END 2022-10-18 12:17 | DRG 872 ==
LOC: JER 11:45 → JERBED 15:47 → J4W 10-11 02:16
PROVIDERS: ADMIT Internal Medicine; ATTEND Internal Medicine
DX: A41.59 Other Gram-negative sepsis (principal); I50.32 Chronic diastolic (congestive) heart failure; I13.0 Hypertensive heart and chronic kidney disease with heart failure and stage 1 through stage 4 chronic kidney disease, or unspecified chronic kidney disease; I47.1 Supraventricular tachycardia; N17.9 Acute kidney failure, unspecified; N39.0 Urinary tract infection, site not specified; E87.20 Acidosis, unspecified; I48.0 Paroxysmal atrial fibrillation; N18.9 Chronic kidney disease, unspecified; E78.5 Hyperlipidemia, unspecified; N32.9 Bladder disorder, unspecified
CPT/HCPCS: 0241U-QW; 36415; 71045-TC-FY; 73030-TC-RT-FY; 76775-TC; 76856-TC; 80053; 81003; 82550; 82553; 82803; 82962; 83605; 83735; 84100; 84484; 85025; 85610; 85730; 86850; 86900; 86901; 87040; 87081; 87086; 87186; 93005; 93010; 93306-TC; 97116-GP; 97162-GP; 99285-25

== ENCOUNTER 2024-02-08 13:04 | Inpatient (IN) | payer OTHER ==
[2024-02-08 14:25] LABS: BASO % 0.7 % (0-2.0); EOS % 6.8 % (0-4.5); HEMATOCRIT 32.7 % (35.4-49); HEMOGLOBIN 10.6 GM/dL (11.7-16.9); LYMPH % 16.7 % (8-40); MCH 29.2 pg (25.7-33.7); MCHC 32.3 g/dl (32.0-35.9); MEAN CELL VOLUME 90.2 fl (80-96); MEAN PLT VOLUME 7.7 fl (7.5-11.1); NEUT % 63.8 % (42.8-82.8); PLATELET COUNT 323 10^3/uL (134-434); RBC 3.62 M/mm3 (4.00-5.60); RDW 15.1 % (11.9-15.9); WHITE BLOOD COUNT 5.7 K/mm3 (4.0-10.0)
[2024-02-08 14:37] LABS: INR 1.11 (0.83-1.09); PROTHROMBIN TIME (PATIENT) 12.7 SEC (9.7-13.0)
[2024-02-08 14:40] LABS: ACTIVATED PTT 33.4 SECONDS (25.2-36.5)
[2024-02-08 14:44] LABS: POTASSIUM 4.9 mmol/L (3.5-5.1)
[2024-02-08 14:46] LABS: CALCIUM 9.1 mg/dL (8.5-10.1)
[2024-02-08 14:47] LABS: ALBUMIN 3.3 g/dl (3.4-5.0); BLOOD UREA NITROGEN 60.7 mg/dL (7-18)
[2024-02-08 14:50] LABS: CREATININE 2.5 mg/dL (0.55-1.3)
[2024-02-08 14:51] LABS: BILIRUBIN,TOTAL 0.4 mg/dL (0.2-1); TOT PROT 8.1 g/dl (6.4-8.2)
[2024-02-08 14:55] LABS: N-TERMINAL BNP 1457.1 pg/ml (5-450)
[2024-02-08] MEDS ORDERED: ACETAMINOPHEN INJECTION 100 ML ONE (15:21)
[2024-02-08] MEDS: ACETAMINOPHEN 1000 MG/100 ML BAG IVPB ONE (16:37)
[2024-02-08] MEDS: morphine SO4 SUSTAINED ACTING 15 MG TABLET.SA PO ONE (16:38)
[2024-02-08] MEDS ORDERED: POLYETHYLENE GLYCOL (HEALTHYLAX) 3350 17 GM PACKET PO PRN (23:11)
[2024-02-08] MEDS ORDERED: SENNOSIDES 8.6MG TABLET (FP) PO PRN (23:11)
[2024-02-08] MEDS: ACETAMINOPHEN 325 MG TABLET (FP) PO PRN (23:17)
[2024-02-09 06:51] LABS: BASO % 0.8 % (0-2.0); EOS % 5.8 % (0-4.5); HEMOGLOBIN 9.7 GM/dL (11.7-16.9); LYMPH % 21.8 % (8-40); MCH 29.5 pg (25.7-33.7); MCHC 32.3 g/dl (32.0-35.9); MEAN CELL VOLUME 91.3 fl (80-96); MEAN PLT VOLUME 7.5 fl (7.5-11.1); MONO % 13.1 % (3.8-10.2); NEUT % 58.5 % (42.8-82.8); PLATELET COUNT 301 10^3/uL (134-434); RBC 3.29 M/mm3 (4.00-5.60); RDW 14.8 % (11.9-15.9); WHITE BLOOD COUNT 6.2 K/mm3 (4.0-10.0)
[2024-02-09 07:09] LABS: POTASSIUM 5.2 mmol/L (3.5-5.1)
[2024-02-09 07:12] LABS: CALCIUM 8.5 mg/dL (8.5-10.1)
[2024-02-09 07:13] LABS: ALBUMIN 2.9 g/dl (3.4-5.0); BLOOD UREA NITROGEN 61.1 mg/dL (7-18)
[2024-02-09 07:16] LABS: CREATININE 2.6 mg/dL (0.55-1.3)
[2024-02-09 07:17] LABS: BILIRUBIN,TOTAL 0.3 mg/dL (0.2-1); TOT PROT 7.2 g/dl (6.4-8.2)
[2024-02-09] MEDS: FUROSEMIDE 40 MG/4 ML INJECTABLE VIAL IVPUSH SCH (09:54)
[2024-02-09] MEDS: ACETAMINOPHEN 500 MG TABLET (FP) PO PRN (09:54)
[2024-02-09] MEDS: amLODIPine BESYLATE 10 MG TABLET (FP) PO SCH (09:55)
[2024-02-09] MEDS: FINASTERIDE 5 MG TABLET (FP) PO SCH (09:55)
[2024-02-09 11:05] VITALS: BMI 20.2
[2024-02-09 19:03] LABS: PH,URINE 6.5 (5.0-8.0); URINE APPEARANCE Clear; URINE BILIRUBIN Negative (NEGATIVE); URINE COLOR Yellow; URINE GLUCOSE (UA) 2+ (NEGATIVE); URINE KETONE Negative (NEGATIVE); URINE LEUK ESTERASE Negative (NEGATIVE); URINE NITRITE Negative (NEGATIVE); URINE PROTEIN Negative (NEGATIVE); URINE UROBILINOGEN 0.2 mg/dL (0.2-1.0)
[2024-02-09] MEDS: ATORVASTATIN CA 20 MG TABLET (FP) PO SCH (22:01)
[2024-02-10] MEDS: SILVER SULFADIAZINE 1% TOP CREAM 400 GM JAR TP SCH (11:00)
[2024-02-10 11:43] LABS: POTASSIUM 4.5 mmol/L (3.5-5.1)
[2024-02-10 11:44] LABS: CALCIUM 8.5 mg/dL (8.5-10.1)
[2024-02-10 11:45] LABS: BLOOD UREA NITROGEN 57.9 mg/dL (7-18)
[2024-02-10 11:48] LABS: CREATININE 2.3 mg/dL (0.55-1.3)
[2024-02-11 08:00] LABS: BASO % 0.8 % (0-2.0); EOS % 3.6 % (0-4.5); HEMATOCRIT 32.3 % (35.4-49); HEMOGLOBIN 10.2 GM/dL (11.7-16.9); LYMPH % 19.2 % (8-40); MCH 28.9 pg (25.7-33.7); MCHC 31.7 g/dl (32.0-35.9); MEAN CELL VOLUME 91.1 fl (80-96); MEAN PLT VOLUME 7.3 fl (7.5-11.1); MONO % 10.2 % (3.8-10.2); NEUT % 66.2 % (42.8-82.8); PLATELET COUNT 325 10^3/uL (134-434); RBC 3.54 M/mm3 (4.00-5.60); RDW 14.6 % (11.9-15.9); WHITE BLOOD COUNT 8.6 K/mm3 (4.0-10.0)
[2024-02-11 08:56] LABS: POTASSIUM 4.5 mmol/L (3.5-5.1)
[2024-02-11 09:11] LABS: CALCIUM 8.5 mg/dL (8.5-10.1)
[2024-02-11 09:12] LABS: ALBUMIN 2.8 g/dl (3.4-5.0); BLOOD UREA NITROGEN 52.2 mg/dL (7-18); MAGNESIUM 2.3 mg/dL (1.8-2.4)
[2024-02-11 09:15] LABS: CREATININE 2.1 mg/dL (0.55-1.3)
[2024-02-11 09:16] LABS: BILIRUBIN,TOTAL 0.3 mg/dL (0.2-1); TOT PROT 7.1 g/dl (6.4-8.2)
[2024-02-11] MEDS: hydrALAZINE HCL 25 MG TABLET (FP) PO SCH (14:52)
[2024-02-11] MEDS: COLLAGENASE CLOSTRIDIUM HIST. 30 GRAMS TUBE TP SCH (15:13)
[2024-02-11] MEDS: CEFTRIAXONE 2 GM-D5W BAG 2 GM/50 ML BAG IVPB SCH (18:45)
[2024-02-11] MEDS: VANCOMYCIN/WATER FOR INJ (PEG) 1,000 MG/200 ML BAG IVPB ONE (18:45)
[2024-02-12] MEDS: TORSEMIDE 20 MG TABLET (FP) PO SCH (09:14)
[2024-02-14 22:29] VITALS: RESP 16
[2024-02-15 12:50] VITALS: BP 126/58; PULSE 79; TEMP 98.2
== END 2024-02-15 13:41 | disposition home or self-care (01) | DRG 291 ==
LOC: JER 13:04 → JERBED 17:15 → J4S 18:56
PROVIDERS: ADMIT Internal Medicine; ATTEND Family Medicine
DX: I13.0 Hypertensive heart and chronic kidney disease with heart failure and stage 1 through stage 4 chronic kidney disease, or unspecified chronic kidney disease (principal); I50.33 Acute on chronic diastolic (congestive) heart failure; L03.115 Cellulitis of right lower limb; L03.116 Cellulitis of left lower limb; L97.919 Non-pressure chronic ulcer of unspecified part of right lower leg with unspecified severity; N39.0 Urinary tract infection, site not specified; E11.22 Type 2 diabetes mellitus with diabetic chronic kidney disease; F03.90 Unspecified dementia, unspecified severity, without behavioral disturbance, psychotic disturbance, mood disturbance, and anxiety; E78.5 Hyperlipidemia, unspecified; I25.10 Atherosclerotic heart disease of native coronary artery without angina pectoris; N18.9 Chronic kidney disease, unspecified
CPT/HCPCS: 0241U-QW; 36415; 71045-TC-FY; 73590-TC-RT-FY; 80048; 80053; 81003; 82962; 83036; 83735; 83880; 84484; 85025; 85610; 85730; 86140; 87086; 87186; 93005; 93010; 93306-TC; 93970-TC; 99285-25; G0480; J0131

== ENCOUNTER 2024-12-31 11:04 | Inpatient (IN) | payer OTHER ==
[2024-12-31 12:35] LABS: ABSOLUTE IMMATURE GRANULOCYTES 0.05 x10^3/uL (0.0-0.031); BASOPHILS # 0.06 x10^3/uL (0.01-0.08); EOSINOPHIL % 10.9 % (0.8-7.0); EOSINOPHILS # 0.84 x10^3/uL (0.04-0.54); MCHC 31.0 g/dl (32.3-36.5); MEAN CELL VOLUME 93.1 fl (79.0-92.2); MEAN PLT VOLUME 9.6 fl (9.4-12.4); MONOCYTE # 0.82 x10^3/uL (0.30-0.82); MONOCYTE % 10.7 % (5.3-12.2); RDW 15.1 % (12.6-16.6)
[2024-12-31 12:56] LABS: GLUCOSE,RANDOM 150.0 mg/dL (74-106); TOT PROT 6.9 g/dl (6.4-8.2)
[2024-12-31 12:57] LABS: CO2 21.0 mmol/L (21-32)
[2024-12-31 12:59] LABS: ALK PHOS 105.0 U/L (40-150)
[2024-12-31 13:02] LABS: CREATININE 2.74 mg/dL (0.55-1.3); SGOT/AST 14.0 U/L (5-34); SGPT/ALT 7.0 U/L (0-55)
[2024-12-31] MEDS ORDERED: POLYETHYLENE GLYCOL (HEALTHYLAX) 3350 17 GM PACKET PO PRN (17:53)
[2024-12-31] MEDS ORDERED: SENNOSIDES 8.6MG TABLET (FP) PO PRN (17:53)
[2024-12-31] MEDS ORDERED: ACETAMINOPHEN 1000 MG/100 ML BAG IVPB PRN (17:56)
[2024-12-31] MEDS ORDERED: FUROSEMIDE 40 MG/4 ML INJECTABLE VIAL ONE (18:19)
[2024-12-31] MEDS: FUROSEMIDE 40 MG/4 ML INJECTABLE VIAL IVPUSH ONE (18:22)
[2024-12-31 21:50] VITALS: BMI 31.8
[2024-12-31] MEDS: hydrALAZINE HCL 25 MG TABLET (FP) PO SCH (21:53)
[2024-12-31] MEDS: APIXABAN 2.5 MG TABLET PO SCH (21:53)
[2024-12-31] MEDS: ATORVASTATIN CA 20 MG TABLET (FP) PO SCH (21:53)
[2025-01-01 08:34] LABS: ABSOLUTE IMMATURE GRANULOCYTES 0.06 x10^3/uL (0.0-0.031); BASOPHILS # 0.05 x10^3/uL (0.01-0.08); EOSINOPHIL % 8.3 % (0.8-7.0); EOSINOPHILS # 0.76 x10^3/uL (0.04-0.54); MCHC 30.3 g/dl (32.3-36.5); MEAN CELL VOLUME 93.5 fl (79.0-92.2); MEAN PLT VOLUME 9.6 fl (9.4-12.4); MONOCYTE # 1.00 x10^3/uL (0.30-0.82); MONOCYTE % 10.9 % (5.3-12.2); RDW 15.1 % (12.6-16.6)
[2025-01-01 08:54] LABS: GLUCOSE,RANDOM 120.0 mg/dL (74-106)
[2025-01-01 08:55] LABS: TOT PROT 6.7 g/dl (6.4-8.2)
[2025-01-01 08:56] LABS: CO2 24.0 mmol/L (21-32)
[2025-01-01 08:58] LABS: ALK PHOS 78.0 U/L (40-150)
[2025-01-01 09:00] LABS: SGOT/AST 15.0 U/L (5-34); SGPT/ALT 7.0 U/L (0-55)
[2025-01-01 09:01] LABS: CREATININE 2.48 mg/dL (0.55-1.3)
[2025-01-01] MEDS: FUROSEMIDE 40 MG/4 ML INJECTABLE VIAL IVPUSH SCH (10:19)
[2025-01-01] MEDS: amLODIPine BESYLATE 10 MG TABLET (FP) PO SCH (10:19)
[2025-01-01] MEDS: FINASTERIDE 5 MG TABLET (FP) PO SCH (10:19)
[2025-01-02] MEDS ORDERED: ACETAMINOPHEN 325 MG TABLET (FP) PO PRN (14:21)
[2025-01-02] MEDS: INSULIN ASPART SLIDING SCALE (NOVOLOG) 1 VIAL SQ SCH (16:44)
[2025-01-03] MEDS: INSULIN GLARGINE (LANTUS) 100 UNITS/ML UNITS SQ SCH (06:50)
[2025-01-04 06:59] VITALS: RESP 18
[2025-01-04 07:42] LABS: MCHC 31.3 g/dl (32.3-36.5); MEAN CELL VOLUME 92.5 fl (79.0-92.2); MEAN PLT VOLUME 9.7 fl (9.4-12.4); RDW 14.9 % (12.6-16.6)
[2025-01-04 08:10] LABS: GLUCOSE,RANDOM 115.0 mg/dL (74-106); TOT PROT 6.3 g/dl (6.4-8.2)
[2025-01-04 08:12] LABS: CO2 21.0 mmol/L (21-32)
[2025-01-04 08:13] LABS: ALK PHOS 68.0 U/L (40-150)
[2025-01-04 08:16] LABS: CREATININE 2.15 mg/dL (0.55-1.3); SGOT/AST 20.0 U/L (5-34); SGPT/ALT 8.0 U/L (0-55)
[2025-01-04 14:15] VITALS: BP 140/55; PULSE 72; TEMP 98.8
== END 2025-01-04 18:50 | disposition home health service (06) | DRG 291 ==
LOC: JER 11:04 → JERBED 14:19 → J6S 20:21
PROVIDERS: ADMIT Family Medicine; ATTEND Family Medicine
DX: I13.0 Hypertensive heart and chronic kidney disease with heart failure and stage 1 through stage 4 chronic kidney disease, or unspecified chronic kidney disease (principal); I50.33 Acute on chronic diastolic (congestive) heart failure; L03.116 Cellulitis of left lower limb; L03.115 Cellulitis of right lower limb; E11.22 Type 2 diabetes mellitus with diabetic chronic kidney disease; N18.9 Chronic kidney disease, unspecified; F03.90 Unspecified dementia, unspecified severity, without behavioral disturbance, psychotic disturbance, mood disturbance, and anxiety; E78.5 Hyperlipidemia, unspecified; I25.10 Atherosclerotic heart disease of native coronary artery without angina pectoris; I48.0 Paroxysmal atrial fibrillation; I87.2 Venous insufficiency (chronic) (peripheral); M10.9 Gout, unspecified; I25.2 Old myocardial infarction; M17.12 Unilateral primary osteoarthritis, left knee; R26.2 Difficulty in walking, not elsewhere classified; E11.40 Type 2 diabetes mellitus with diabetic neuropathy, unspecified
CPT/HCPCS: 36415; 71045-TC-FY; 73564-TC-LT-FY; 73610-TC-RT-FY; 73630-TC-RT-FY; 80053; 82962; 83036; 83735; 83880; 84484; 85025; 85027; 93005; 93010; 93306-TC; 93970-TC; 97116-GP; 97162-GP; 99285-25